=== PATIENT | female | born 1965 | race Caucasian/White ===

== ENCOUNTER 2022-03-04 20:18 | Inpatient (IN) | payer MEDICARE, MEDICAID, SELFPAY ==
--- NOTE | ~2022-03-04 | US_ITS ---
EXAMINATION: ULTRASOUND-GUIDED THORACENTESIS CLINICAL INFORMATION: Pleural effusions COMPARISON: Previous chest CT from yesterday TECHNIQUE: Procedure and risks and benefits including bleeding, infection and pneumothorax were discussed with the patient and informed consent was obtained. The right posterior lateral chest was prepped and draped in the usual sterile fashion. The skin and soft tissues were anesthetized with 1% lidocaine plain. Using ultrasound guidance and a 4 [place] one-stick system, access to the right pleural effusion was obtained. 1.1 L of bloody fluid was removed. Diagnostic specimen was sent as requested by the ordering physician. FINDINGS: There is a large right pleural effusion. This appears complex with low-level internal echoes. US/US thoracentesis IMPRESSION: Ultrasound-guided right thoracentesis.
--- NOTE | ~2022-03-04 | XR_ITS ---
EXAMINATION: XR CHEST CLINICAL INFORMATION: Pleural effusion and shortness of breath. COMPARISON: Chest radiograph 03/05/2022. TECHNIQUE: Frontal view of the chest was obtained. FINDINGS: Stable appearance of the cardiomediastinal silhouette. Low lung volumes with bronchovascular crowding and bibasilar subsegmental atelectasis. Mildly decreased small bilateral pleural effusions. No pneumothorax. No new focal airspace opacities. No acute osseous abnormalities. XR/XR chest 1V IMPRESSION: 1. Mildly decreased small bilateral pleural effusions. 2. Low lung volumes with bronchovascular crowding and bibasilar subsegmental atelectasis.
--- NOTE | ~2022-03-04 | XR_ITS ---
EXAMINATION: XR CHEST CLINICAL INFORMATION: Chest pain. Status post right thoracentesis.. COMPARISON: CT chest 03/05/2022. TECHNIQUE: Frontal view of the chest was obtained. FINDINGS: There is moderate right and small left pleural effusion with underlying atelectasis. The upper lungs are clear. No visible pneumothorax. Heart size and pulmonary vascularity appears normal. No gross bony abnormality. XR/XR chest 1V IMPRESSION: Moderate right and small left pleural effusion. No pneumothorax seen status post right thoracentesis.
--- NOTE | ~2022-03-04 | CT_ITS ---
EXAMINATION: CT ABDOMEN AND PELVIS WITH CONTRAST CLINICAL INFORMATION: Pain COMPARISON: None TECHNIQUE: Multidetector volumetric images were obtained from the superior aspect of the liver through the pubic symphysis following administration 85 mL of Omnipaque 350 intravenous contrast. Sagittal and coronal reformatted images were obtained on the technologist's workstation. Oral contrast: No This CT examination was performed using dose optimization techniques as appropriate, variously including the following: *Automated exposure control *Adjustment of mA and/or kV according to patient size (this includes techniques or standardized protocols for targeted exams where dose is matched to indication/reason for exam; i.e. extremities or head) *Use of iterative reconstruction technique DLP: 661 mGy-cm FINDINGS: LUNG BASES: Large bilateral pleural effusions redemonstrated. LIVER, GALLBLADDER, AND BILIARY TREE: The liver is normal in size, shape, and attenuation. There are a few benign appearing hepatic cysts. Peritoneal implants surrounding the caudate. No focal hepatic lesion or biliary ductal dilatation is present. Cholelithiasis. PANCREAS: Unremarkable. SPLEEN: Unremarkable. ADRENAL GLANDS: Unremarkable. KIDNEYS AND URETERS: The kidneys are normal in size, shape, and attenuation. No hydronephrosis, hydroureter, or calculi seen. No perinephric stranding. BLADDER: Unremarkable. GASTROINTESTINAL TRACT: The small and large bowel are unremarkable. The appendix is unremarkable. ABDOMINAL WALL: No significant hernia is appreciated. LYMPH NODES: Mildly enlarged retroperitoneal lymph nodes present VASCULAR: Aorta atherosclerotic but normal caliber. Patent venous structures. PELVIC VISCERA: Massive complex right ovarian cyst cystic neoplasm. The left ovary may be involved as well. The cystic neoplasm is multiloculated, with the largest single loculation measuring up to 14.8 cm. Extensive peritoneal implants present with omental caking, some of which shows associated calcification. Large massive tumors present within the cul-de-sac. Peritoneal implants present throughout the abdominal cavity with thick coating along the surface of the right hemidiaphragm is well. OSSEOUS STRUCTURES: Unremarkable. 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
--- NOTE | ~2022-03-04 | US_ITS ---
EXAMINATION: US VENOUS ULTRASOUND WITH DOPPLER LOWER EXTREMITY, BILATERAL CLINICAL INFORMATION: Lower extremity edema and pain bilaterally COMPARISON: None TECHNIQUE: Ultrasound of the deep veins is performed from the hip to the calf with compression sonography and color and pulse Doppler assessment. Spectral analysis with color-flow imaging is performed. FINDINGS: RIGHT: There is normal venous compression and respiratory variation and augmented flow. The visualized common femoral vein, superficial femoral vein, profunda femoral vein, popliteal vein, and the trifurcation region shows no evidence of deep venous thrombosis. There is no significant popliteal fossa cyst. LEFT: There is normal venous compression and respiratory variation and augmented flow. The visualized common femoral vein, superficial femoral vein, profunda femoral vein, popliteal vein, and the trifurcation region shows no evidence of deep venous thrombosis. There is no significant popliteal fossa cyst. If the patient's symptoms persist, followup ultrasound in 5 days 7 days might be of value to exclude proximal propagation from a non-visualized calf vein. US/US venous duplex LE BI IMPRESSION: No DVT demonstrated in the bilateral lower extremities.
--- NOTE | ~2022-03-04 | US_ITS ---
EXAMINATION: ULTRASOUND-GUIDED BIOPSY CLINICAL INFORMATION: Ascites and peritoneal masses COMPARISON: CT of the abdomen and pelvis from yesterday TECHNIQUE: Procedure and risks and benefits including bleeding, infection and injury to the bowel or adjacent organs was discussed with the patient and informed consent was obtained. The left periumbilical region was prepped and draped in the usual sterile fashion. The skin and soft tissues were anesthetized with 1% lidocaine plain. Using CT guidance and a coaxial system, access to a partially solid partially cystic peritoneal mass just deep to the abdominal wall was obtained. 4 20-gauge core biopsies were obtained. There was no complication. FINDINGS: There are multiple peritoneal soft tissue masses. Some appear heterogeneous in echotexture and solid. Some appear partially solid and partially cystic. The largest visible solid mass was targeted for ultrasound-guided biopsy. Large-volume complex ascites and cystic mass in the pelvis measuring at least 14 cm is again noted. US/US biopsy subcutaneous skin IMPRESSION: Ultrasound-guided peritoneal biopsy.
--- NOTE | ~2022-03-04 | US_ITS ---
EXAMINATION: ULTRASOUND-GUIDED PARACENTESIS CLINICAL INFORMATION: Ascites COMPARISON: Previous CT of the abdomen and pelvis 03/05/2022 TECHNIQUE: Procedure and risks and benefits including bleeding, infection and low blood pressure were discussed with the patient and informed consent was obtained. The right lower quadrant was prepped and draped in the usual sterile fashion. The skin and soft tissues were anesthetized lidocaine plain. Using ultrasound guidance and a 5 [place] 1 6 system, access to the ascitic fluid was obtained. 5.2 L of bloody cough fluid was removed. Specimen was sent as requested by the ordering physician. FINDINGS: There is a large amount of ascites. This appears slightly complex with low-level internal echoes. There are multiple peritoneal soft tissue solid and cystic mass is seen. There is a large cystic lesion in the pelvis measuring approximately 14 cm in diameter. US/US paracentesis abd w/image IMPRESSION: Ultrasound-guided paracentesis. 5.2 L of bloody fluid removed. Complex ascites with multiple partially solid partially and partially cystic peritoneal masses and large cystic mass in the pelvis measuring at least 14 cm.
--- NOTE | ~2022-03-04 | US_ITS ---
EXAMINATION: US ABDOMEN LIMITED CLINICAL INFORMATION: Evaluate for ascites. COMPARISON: CT abdomen pelvis 03/05/2022, paracentesis 03/05/2022 TECHNIQUE: Real-time imaging of the abdomen. FINDINGS: There are bilateral small to moderate-sized pleural effusions present. A small amount of ascites is present. A large cystic mass is present only partially imaged in the pelvis which is the mass which was seen on the recent 03/05/2022 CT abdomen pelvis. US/US abdomen limited IMPRESSION: Bilateral small to moderate-sized pleural effusions and small amount of ascites. Other findings described above.
[2022-03-04 20:25] VITALS: BP 169/82; PULSE 118; PULSE 88; RESP 26; O2SAT 89; O2SAT 95; BMI 30.1
--- NOTE | 2022-03-04 20:47 | ECG_ITS ---
Test Reason : SOB ABD PAIN Blood Pressure : / mmHG Vent. Rate : 114 BPM Atrial Rate : 114 BPM P-R Int : 094 ms QRS Dur : 080 ms QT Int : 314 ms P-R-T Axes : 036 050 233 degrees QTc Int : 432 ms Sinus tachycardia with short OH Nonspecific ST and T wave abnormality Abnormal ECG No previous ECGs available Referred By: Rudolph Silva Electronically Signed By:Darin Coyne
--- NOTE | 2022-03-04 20:49 | ED.GENADULT ---
HPI - General Adult General Chief complaint: General Medical Stated complaint: abdominal pain Time Seen by Provider: 03/04/22 20:26 Source: patient History of Present Illness HPI narrative: patient with increasing shortness of breath as well as pedal edema and abdominal distension and discomfort. Symptoms started approximately a month ago but have gotten much more severe over the past week. The pedal edema is new. No prior cardiac history. No history of edema. Patient states her main medical issue is long-term chronic Kimberlyn infection. She states symptoms started with what sounds like a viral type syndrome. Some chills but without documented fever. Some cough. No nausea vomiting. Positive decreased appetite. Positive abdominal distension patient has pressured speech and is a bit of a tangential historian. It is hard to get definitive answers for specific review of systems such as dysuria or frequency. She does not remember having chest pain Related Data Allergies Allergy/AdvReac Type Severity Reaction Status Date / Time ibuprofen Allergy Unknown Verified 03/04/22 20:47 Penicillins AdvReac Unknown Verified 03/04/22 20:47 Review of Systems Review of Systems: see HPI. Constitutional: Comments: Chills last month. No documented fevers. Positive increased fatigue and malaise. Cardiovascular: Comments: No chest pain. Positive increased bilateral pedal edema with blistering which is a new symptom Respiratory: Comments: significant dyspnea at rest and worse with any exertion Gastrointestinal: Comments: decreased appetite. Positive abdominal swelling. Positive pain. No nausea or vomiting or diarrhea. Decreased bowel movements. Musculoskeletal: Comments: Bilateral pedal edema Integumentary/Breasts: Comments: blistering bilateral feet Neurologic: Comments: no focal weakness Psychiatric: Comments: patient reports severe anxiety PMFSH Social History Social History Alcohol intake: never Smoked in Last 30 Days: No Use of substances other than those prescribed or required for medical reasons: No Advance Directives: No Advance Directives Information Provided: No Patient : No Physical Exam ED Vital Signs: Vital Signs - 24 hr 03/04/22 20:25 03/04/22 22:21 Pulse Rate 118 H 111 H Respiratory Rate 26 H 28 H Blood Pressure 169/82 H 115/89 Pulse Oximetry 95 94 Oxygen Delivery Method Nasal Cannula Nasal Cannula Oxygen Flow Rate 4 BMI result Body Mass Index 30.1 Const Other: awake and alert. Speaking in 4-5 word sentences. Tachypneic. Hypertensive. Oxygen saturation on nasal cannula 95%. Resp Other: Diminished bilaterally. Bibasilar rales. Cardio Other: tachycardic without murmurs rubs or gallops GI Other: soft. Distended. Diffusely mildly tender without guarding or rebound. Positive fluid wave. Skin Other: Warm pink and dry without rash. Large bullae to the dorsum of bilateral feet. Filled with clear liquid. No purulence drainage. No significant surrounding erythema. Neuro Other: No obvious focal neuro deficit Extrem Other: bilateral 4+ pitting edema. No calf tenderness Course Course Course Narrative: 21:43. X-ray shows large right-sided pleural effusion with small left-sided pleural effusion. Lasix IV ordered. Await creatinine and will order chest x-ray. No evidence for pneumonia at this point in time. 22:39. Lab work so far shows white count of 10.3. Normal hemoglobin and platelets of 521 D-dimer of 971 Creatinine is normal at 0.75.. BNP is 24 Troponin is 8.4. Albumin is 3.9 and total protein is 8.1. Given elevated D-dimer as well as possible mass on chest x-ray, will order CT angiography for better differentiation of mass versus pulmonary embolism 22:51. Will sign out pending results of CT scan. Patient will need hospitalization for further workup and monitoring. She will likely need thoracentesis both therapeutically and diagnostically. She does not need emergent thoracentesis at this time is her saturation is adequate on nasal cannula. 23:45. CT scan shows diffuse pleural effusions and ascites. No obvious masses, no pulmonary embolism. No infiltrates. Will hospitalized at this point Medications Administered Discontinued Medications Generic Name Dose Route Start Last Admin Trade Name Freq PRN Reason Stop Dose Admin Furosemide 20 mg 03/04/22 21:06 03/04/22 21:56 Furosemide 20 Mg/2 Ml Vial IVPUSH 03/04/22 21:07 20 mg ONCE ONE Administration Protocol Iohexol 65 ml 03/04/22 23:17 03/04/22 23:18 Iohexol 350 Mg/Ml 100 Ml Infus..Btl IV 03/04/22 23:18 65 ml ONCE ONE Administration Medical Decision Making Medical Decision Making [facility] Narrative: patient clinically ill with a large differential diagnosis. Congestive heart failure, new onset Renal failure Liver failure Pericardial effusion Postinfectious cardiomyopathy No obvious infectious source at the moment Anasarca Nephrotic syndrome Lab Data Result Diagrams: 03/04/22 21:31 03/04/22 21:31 Labs: Lab Results 03/04/22 03/04/22 03/04/22 Range/Units 21:31 21:31 21:31 WBC 10.3 (4.8-10.8) X10*3/uL RBC 6.22 H (4.20-5.50) X10*6/uL Hgb 14.7 (12.0-16.0) g/dl Hct 46.9 (37.0-47.0) % MCV 75.4 L (80.0-98.0) fL MCH 23.6 L (27.0-33.0) pg MCHC 31.3 (31.0-35.0) g/dl RDW 16.0 (11.0-16.0) % Plt Count 521 H (160-400) X10*3/uL MPV 9.4 (9.4-12.3) fL Immature Gran % (Auto) 0.4 (0.0-0.4) % Neut % (Auto) 88.4 H (45-73) % Lymph % (Auto) 4.1 L (20-40) % [place] % (Auto) 6.6 (2-11) % Eos % (Auto) 0.2 (0-4) % Baso % (Auto) 0.3 (0-2) % Lymph # (Auto) 0.4 L (1.2-4.9) X10*3/uL [place] # (Auto) 0.7 (0.1-1.2) X10*3/uL Eos # (Auto) 0.0 (0.0-0.4) X10*3/uL Baso # (Auto) 0.0 (0.0-0.2) X10*3/uL Abs Immat Gran (auto) 0.04 H (0.00-0.03) X10*3/uL Absolute Neuts (auto) 9.1 H (2.0-8.3) x10*3/uL Absolute Nucleated RBC 0.000 (0.0-0.012) X10*3/uL Nucleated RBC % (auto) 0.0 (0.0-0.2) /100WBC PT (10.0-13.1) SEC INR (0.9-1.1) D-Dimer High Sensitivty NG/ML Sodium 139 (135-145) mmol/L Potassium 4.8 (3.3-5.1) mmol/L Chloride 103 (96-108) mmol/L Carbon Dioxide 21 L (22-29) mmol/L Anion Gap 20 (12-20) BUN 22 H (9-16) mg/dL Creatinine 0.75 (0.5-1.4) mg/dL Estim Creat Clear Calc 81.3 Estimated GFR > 60 Random Glucose 116 H (60-115) mg/dL Lactic Acid 1.9 (0.5-2.0) mmol/L Calcium 10.0 (8.4-10.2) mg/dL Total Bilirubin 0.2 (0.0-1.0) mg/dL AST 51 H (5-31) U/L ALT 26 (0-31) U/L Alkaline Phosphatase 83 (39-117) U/L Troponin I High Sens (<3.5-17.0) ng/L B-Natriuretic Peptide (<100) pg/mL Total Protein 8.1 H (6.5-8.0) g/dL Albumin 3.9 (3.5-5.0) g/dL Urine Color Urine Appearance Urine pH (5.0-9.0) Ur Specific [place] (1.005-1.025) Urine Protein (Neg-Trace) mg/dL Urine Glucose (UA) (Negative) mg/dL Urine Ketones (Negative) mg/dL Urine Blood (Negative) Urine Nitrite (Negative) Ur Leukocyte Esterase (Negative) Urine RBC (0-2) /HPF Urine WBC (0-5) /HPF Ur Squamous Epith Cells (0-2) /HPF Urine Bacteria (None Seen) Hyaline Casts (0-2) /LPF Granular Casts 03/04/22 03/04/22 03/04/22 Range/Units 21:31 21:31 21:31 WBC (4.8-10.8) X10*3/uL RBC (4.20-5.50) X10*6/uL Hgb (12.0-16.0) g/dl Hct (37.0-47.0) % MCV (80.0-98.0) fL MCH (27.0-33.0) pg MCHC (31.0-35.0) g/dl RDW (11.0-16.0) % Plt Count (160-400) X10*3/uL MPV (9.4-12.3) fL Immature Gran % (Auto) (0.0-0.4) % Neut % (Auto) (45-73) % Lymph % (Auto) (20-40) % [place] % (Auto) (2-11) % Eos % (Auto) (0-4) % Baso % (Auto) (0-2) % Lymph # (Auto) (1.2-4.9) X10*3/uL [place] # (Auto) (0.1-1.2) X10*3/uL Eos # (Auto) (0.0-0.4) X10*3/uL Baso # (Auto) (0.0-0.2) X10*3/uL Abs Immat Gran (auto) (0.00-0.03) X10*3/uL Absolute Neuts (auto) (2.0-8.3) x10*3/uL Absolute Nucleated RBC (0.0-0.012) X10*3/uL Nucleated RBC % (auto) (0.0-0.2) /100WBC PT 13.2 H (10.0-13.1) SEC INR 1.1 (0.9-1.1) D-Dimer High Sensitivty 971 NG/ML Sodium (135-145) mmol/L Potassium (3.3-5.1) mmol/L Chloride (96-108) mmol/L Carbon Dioxide (22-29) mmol/L Anion Gap (12-20) BUN (9-16) mg/dL Creatinine (0.5-1.4) mg/dL Estim Creat Clear Calc Estimated GFR Random Glucose (60-115) mg/dL Lactic Acid (0.5-2.0) mmol/L Calcium (8.4-10.2) mg/dL Total Bilirubin (0.0-1.0) mg/dL AST (5-31) U/L ALT (0-31) U/L Alkaline Phosphatase (39-117) U/L Troponin I High Sens 8.4 (<3.5-17.0) ng/L B-Natriuretic Peptide 24 (<100) pg/mL Total Protein (6.5-8.0) g/dL Albumin (3.5-5.0) g/dL Urine Color Urine Appearance Urine pH (5.0-9.0) Ur Specific [place] (1.005-1.025) Urine Protein (Neg-Trace) mg/dL Urine Glucose (UA) (Negative) mg/dL Urine Ketones (Negative) mg/dL Urine Blood (Negative) Urine Nitrite (Negative) Ur Leukocyte Esterase (Negative) Urine RBC (0-2) /HPF Urine WBC (0-5) /HPF Ur Squamous Epith Cells (0-2) /HPF Urine Bacteria (None Seen) Hyaline Casts (0-2) /LPF Granular Casts 03/04/22 Range/Units 21:48 WBC (4.8-10.8) X10*3/uL RBC (4.20-5.50) X10*6/uL Hgb (12.0-16.0) g/dl Hct (37.0-47.0) % MCV (80.0-98.0) fL MCH (27.0-33.0) pg MCHC (31.0-35.0) g/dl RDW (11.0-16.0) % Plt Count (160-400) X10*3/uL MPV (9.4-12.3) fL Immature Gran % (Auto) (0.0-0.4) % Neut % (Auto) (45-73) % Lymph % (Auto) (20-40) % [place] % (Auto) (2-11) % Eos % (Auto) (0-4) % Baso % (Auto) (0-2) % Lymph # (Auto) (1.2-4.9) X10*3/uL [place] # (Auto) (0.1-1.2) X10*3/uL Eos # (Auto) (0.0-0.4) X10*3/uL Baso # (Auto) (0.0-0.2) X10*3/uL Abs Immat Gran (auto) (0.00-0.03) X10*3/uL Absolute Neuts (auto) (2.0-8.3) x10*3/uL Absolute Nucleated RBC (0.0-0.012) X10*3/uL Nucleated RBC % (auto) (0.0-0.2) /100WBC PT (10.0-13.1) SEC INR (0.9-1.1) D-Dimer High Sensitivty NG/ML Sodium (135-145) mmol/L Potassium (3.3-5.1) mmol/L Chloride (96-108) mmol/L Carbon Dioxide (22-29) mmol/L Anion Gap (12-20) BUN (9-16) mg/dL Creatinine (0.5-1.4) mg/dL Estim Creat Clear Calc Estimated GFR Random Glucose (60-115) mg/dL Lactic Acid (0.5-2.0) mmol/L Calcium (8.4-10.2) mg/dL Total Bilirubin (0.0-1.0) mg/dL AST (5-31) U/L ALT (0-31) U/L Alkaline Phosphatase (39-117) U/L Troponin I High Sens (<3.5-17.0) ng/L B-Natriuretic Peptide (<100) pg/mL Total Protein (6.5-8.0) g/dL Albumin (3.5-5.0) g/dL Urine Color Dark Yellow Urine Appearance Cloudy Urine pH 5.0 (5.0-9.0) Ur Specific [place] >= 1.030 H (1.005-1.025) Urine Protein 30 (1+) H (Neg-Trace) mg/dL Urine Glucose (UA) Negative (Negative) mg/dL Urine Ketones Trace (Negative) mg/dL Urine Blood Trace H (Negative) Urine Nitrite Negative (Negative) Ur Leukocyte Esterase Negative (Negative) Urine RBC 3-5 H (0-2) /HPF Urine WBC 0-5 (0-5) /HPF Ur Squamous Epith Cells 6-10 (0-2) /HPF Urine Bacteria None Seen (None Seen) Hyaline Casts >20 (0-2) /LPF Granular Casts Present Critical Care Time Critical Care Time Critical Care Time: Yes Total Critical Care Time: 100 Attestation: Critical care time outside of separately billable procedures. Critical care time secondary to abnormal vital signs in the setting of respiratory distress with possible respiratory failure and multiorgan involvement Discharge Plan Discharge Clinical Impression: Anasarca Patient Disposition: Admitted As Inpatient
[2022-03-04 21:37] LABS: MANUAL DIFF FLAG NO
[2022-03-04 21:39] LABS: Basophils Percent Auto 0.3 % (0-2); Eosinophils Percent Auto 0.2 % (0-4); Hematocrit 46.9 % (37.0-47.0); Hemoglobin 14.7 g/dl (12.0-16.0); Imm Gran Abs Auto 0.04 X10*3/uL (0.00-0.03); Imm Gran Pct Auto 0.4 % (0.0-0.4); Lymphocytes Absolute Auto 0.4 X10*3/uL (1.2-4.9); Lymphocytes Percent Auto 4.1 % (20-40); Mean Corpuscular HGB Conc 31.3 g/dl (31.0-35.0); Mean Corpuscular Hemoglobin 23.6 pg (27.0-33.0); Mean Corpuscular Volume 75.4 fL (80.0-98.0); Mean Platelet Volume 9.4 fL (9.4-12.3); Monocytes Absolute Auto 0.7 X10*3/uL (0.1-1.2); Monocytes Percent Auto 6.6 % (2-11); Neutrophils Absolute Auto 9.1 x10*3/uL (2.0-8.3); Neutrophils Percent Auto 88.4 % (45-73); Platelet Count 521 X10*3/uL (160-400); Red Blood Count 6.22 X10*6/uL (4.20-5.50); White Blood Count 10.3 X10*3/uL (4.8-10.8)
[2022-03-04 21:44] LABS: INTERNATIONAL NORM RATIO 1.1 (0.9-1.1); Prothrombin Time 13.2 SEC (10.0-13.1)
[2022-03-04 21:46] LABS: D Dimer High Sensitivity 971 NG/ML
[2022-03-04 21:54] LABS: Appearance Urine Cloudy; Color Urine Dark Yellow; Glucose Urine UA Negative (Negative); Leukocyte Esterase Urine Negative (Negative); Nitrite Urine Negative (Negative); Specific Gravity - Urine >= 1.030 (1.005-1.025); UMIC TRIGGER UACC YES; Urine Blood Trace (Negative); Urine Ketones Trace mg/dL (Negative); Urine Protein 30 (1+) mg/dL (Neg-Trace)
[2022-03-04 21:56] LABS: Lactic Acid 1.9 mmol/L (0.5-2.0)
[2022-03-04] MEDS: Furosemide 20 MG/2 ML VIAL IVPUSH (21:56)
[2022-03-04 22:00] LABS: Alanine Aminotransferase 26 U/L (0-31); Albumin Level 3.9 g/dL (3.5-5.0); Alkaline Phosphatase 83 U/L (39-117); Anion Gap 20 (12-20); Aspartate Amino Transferase 51 U/L (5-31); Bilirubin Total 0.2 mg/dL (0.0-1.0); Blood Urea Nitrogen 22 mg/dL (9-16); Carbon Dioxide 21 mmol/L (22-29); Chloride 103 mmol/L (96-108); Creatinine Clr Calc Pharmacy 81.3; Estimated Glomerular Filt Rate > 60; Glucose Random 116 mg/dL (60-115); Potassium 4.8 mmol/L (3.3-5.1); Sodium 139 mmol/L (135-145); Total Protein 8.1 g/dL (6.5-8.0)
[2022-03-04 22:03] LABS: Bacteria Urine None Seen (None Seen); Granular Casts Urine Present; Hyaline Casts Urine >20 /LPF (0-2); WBC Urine 0-5 /HPF (0-5)
[2022-03-04 22:06] LABS: B Type Natriuretic Peptide 24 pg/mL (<100)
[2022-03-04 22:07] LABS: Troponin-I High Sensitivity 8.4 ng/L (<3.5-17.0)
[2022-03-04 22:21] VITALS: BP 115/89; PULSE 111; RESP 28; O2SAT 94
--- NOTE | 2022-03-04 22:54 | PC.NURSE ---
Pt resting on stretcher, reports pain in abdomen, unable to determine how severe. pt has tangential thoughts and is unable to fully develop a cohesive explanation for things. Pt has patent 20g IV in LAC. Pt is able to get up and use commode
[2022-03-04 23:45] VITALS: O2SAT 96
[2022-03-05] VITALS: BP 127/66; PULSE 106; RESP 33; TEMP 36.8; O2SAT 95
[2022-03-05 01:28] LABS: Ferritin 1249 ng/mL (10-250)
--- NOTE | 2022-03-05 02:54 | PC.NURSE ---
This technical writer and editor assumed care at 0250.
[2022-03-05 04:27] VITALS: BP 138/96; PULSE 99; RESP 22; TEMP 36.4; O2SAT 94
--- NOTE | 2022-03-05 06:03 | PM.IMHP ---
History of Present Illness Date of Service: 03/05/22 Chief Complaint: Ascites 56-year-old female who reports no previous significant medical history except for anxiety with possible developmental delay, presents to the hospital with complaints of abdominal distension. Patient is a very poor historian, see has flight of ideas, unable to keep a straight story, but reports that since January 28 she noticed significant abdominal bloating, difficulty breathing. She reports that she has also noticed significant weight loss and feels that she has lost muscle mass. She reports difficulty sleeping, unable to get comfortable in any position. Otherwise difficult to have patient focus and tell a straight story. She reports no chest pain, no abdominal pain, no diarrhea or constipation, no urinary symptoms . Patient also complaining of lower extremity edema for the past 1 week. She reports that none of this has been attributed to her stress and anxiety. Labs are significant for respiratory rate of 26, heart rate of 118, blood pressure 169/82, Labs on arrival significant for WBC count of 10.3, hemoglobin of 14.7, hematocrit 46.9, PT of 13.2, creatinine of 0.75, calcium of 10.0, ferritin of 1249, albumin of 3.9, UA negative for acute infection, Troponin negative Chest CT negative for PE, no aortic aneurysm or dissection, chest CT shows large bilateral pleural effusion with accompanying atelectasis, abdominal pelvic CT shows large complex cystic and solid neoplasm involving the right ovary possibly left ovary as well with extensive peritoneal carcinomatosis Patient given Lasix with a good affect and will be admitted for further management Review of Systems Review of Systems: Yes all other systems are reviewed and are negative [facility] Medical History Anxiety Family History Father History of coronary artery disease Surgical History No pertinent past surgical history Social History Alcohol intake: never Smoked in Last 30 Days: No Use of substances other than those prescribed or required for medical reasons: No Advance Directives: No Advance Directives Information Provided: No Patient : No Meds Allergies Allergy/AdvReac Type Severity Reaction Status Date / Time ibuprofen Allergy Unknown Verified 03/04/22 20:47 Penicillins AdvReac Unknown Verified 03/04/22 20:47 Physical Exam Vital Signs and Narrative: Vital Signs: Last Vital Signs Temp 97.5 F 03/05/22 04:27 Pulse 99 03/05/22 04:27 Resp 22 H 03/05/22 04:27 BP 138/96 H 03/05/22 04:27 Pulse Ox 94 03/05/22 04:27 O2 Del Method 03/05/22 04:27 O2 Flow Rate 4 03/05/22 04:27 Oxygen Flow Rate 3 03/04/22 20:25 BMI result Body Mass Index 30.1 Const: General: cooperative and no acute distress Orientation/consciousness: patient oriented x3 Eyes: General: appearance normal, both eyes and all related structures Resp: Other: Crackles bilaterally, has significant dyspnea on minimal effort Effort & Inspection: normal respiratory effort Cardio: Rate: regular rate Rhythm: regular rhythm GI: Other: Abdomen is significantly distended, hard nontender Skin: General skin exam: no rashes or lesions noted Neuro: General: patient oriented x3 Cognition (Neuro): normal cognition Extrem: Other: 3+ pitting edema bilaterally General: Yes normal to inspection Results Labs CBC and Chem 7: 03/04/22 21:31 03/04/22 21:31 Labs: Laboratory Results - last 24 hr 03/04/22 03/04/22 03/04/22 21:31 21:31 21:31 MCV 75.4 L MCH 23.6 L MCHC 31.3 RDW 16.0 Plt Count 521 H MPV 9.4 Immature Gran % (Auto) 0.4 Neut % (Auto) 88.4 H Lymph % (Auto) 4.1 L [place] % (Auto) 6.6 Eos % (Auto) 0.2 Baso % (Auto) 0.3 Lymph # (Auto) 0.4 L [place] # (Auto) 0.7 Eos # (Auto) 0.0 Baso # (Auto) 0.0 Abs Immat Gran (auto) 0.04 H Absolute Neuts (auto) 9.1 H Absolute Nucleated RBC 0.000 Nucleated RBC % (auto) 0.0 PT INR D-Dimer High Sensitivty Anion Gap 20 Estim Creat Clear Calc 81.3 Estimated GFR > 60 Random Glucose 116 H Lactic Acid 1.9 Calcium 10.0 Ferritin 1249 H Total Bilirubin 0.2 AST 51 H ALT 26 Alkaline Phosphatase 83 Troponin I High Sens B-Natriuretic Peptide Total Protein 8.1 H Albumin 3.9 Urine Color Urine Appearance Urine pH Ur Specific [place] Urine Protein Urine Glucose (UA) Urine Ketones Urine Blood Urine Nitrite Ur Leukocyte Esterase Urine RBC Urine WBC Ur Squamous Epith Cells Urine Bacteria Hyaline Casts Granular Casts 03/04/22 03/04/22 03/04/22 21:31 21:31 21:31 MCV MCH MCHC RDW Plt Count MPV Immature Gran % (Auto) Neut % (Auto) Lymph % (Auto) [place] % (Auto) Eos % (Auto) Baso % (Auto) Lymph # (Auto) [place] # (Auto) Eos # (Auto) Baso # (Auto) Abs Immat Gran (auto) Absolute Neuts (auto) Absolute Nucleated RBC Nucleated RBC % (auto) PT 13.2 H INR 1.1 D-Dimer High Sensitivty 971 Anion Gap Estim Creat Clear Calc Estimated GFR Random Glucose Lactic Acid Calcium Ferritin Total Bilirubin AST ALT Alkaline Phosphatase Troponin I High Sens 8.4 B-Natriuretic Peptide 24 Total Protein Albumin Urine Color Urine Appearance Urine pH Ur Specific [place] Urine Protein Urine Glucose (UA) Urine Ketones Urine Blood Urine Nitrite Ur Leukocyte Esterase Urine RBC Urine WBC Ur Squamous Epith Cells Urine Bacteria Hyaline Casts Granular Casts 03/04/22 21:48 MCV MCH MCHC RDW Plt Count MPV Immature Gran % (Auto) Neut % (Auto) Lymph % (Auto) [place] % (Auto) Eos % (Auto) Baso % (Auto) Lymph # (Auto) [place] # (Auto) Eos # (Auto) Baso # (Auto) Abs Immat Gran (auto) Absolute Neuts (auto) Absolute Nucleated RBC Nucleated RBC % (auto) PT INR D-Dimer High Sensitivty Anion Gap Estim Creat Clear Calc Estimated GFR Random Glucose Lactic Acid Calcium Ferritin Total Bilirubin AST ALT Alkaline Phosphatase Troponin I High Sens B-Natriuretic Peptide Total Protein Albumin Urine Color Dark Yellow Urine Appearance Cloudy Urine pH 5.0 Ur Specific [place] >= 1.030 H Urine Protein 30 (1+) H Urine Glucose (UA) Negative Urine Ketones Trace Urine Blood Trace H Urine Nitrite Negative Ur Leukocyte Esterase Negative Urine RBC 3-5 H Urine WBC 0-5 Ur Squamous Epith Cells 6-10 Urine Bacteria None Seen Hyaline Casts >20 Granular Casts Present Imaging Radiologist's Impressions: Impressions Chest X-Ray 03/04/22 21:01 IMPRESSION: [id number] right and [id number] left pleural effusions. Associated consolidations are suspected likely representing atelectasis; superimposed infection cannot be excluded. Underlying mass lesion cannot be completely excluded. Chest CTA 03/04/22 23:15 IMPRESSION: * No pulmonary embolism. * No aortic aneurysm or dissection. * Large bilateral pleural effusions with accompanying atelectasis. * Large volume ascites. 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 Assessment and Plan (1) Ascites, malignant: Status: Acute (2) Pleural effusion: Status: Acute (3) Ovarian mass: Status: Acute (4) Anasarca: Status: Acute Plan 56-year-old female with past medical history of anxiety disorder presents to the hospital with complaints of ascites found to have a very in mass on imaging # ascites of malignancy - will treat with Lasix - IR consult for paracentesis - Hematology-Oncology consult - monitor respiratory status # bilateral pleural effusion - likely malignant due to above - pulmonology consult for possible thoracocentesis given the significant large size of the pleural effusions - continue oxygen as required # ovarian mass - patient reports weight loss, no family history of cancer - CT shows complex large neoplasm above in the right and possibly left ovary - Hematology-Oncology consulted - Ob Gyne consult for further guidance DVT prophylaxis: Heparin Given patient's ascites of malignancy requiring paracentesis and further workup patient will require minimum 2 night inpatient hospital stay for further management and monitoring Time Spent With Patient Time: Total time managing care of this patient today ____ minutes. Quality Stroke Does the patient have a stroke diagnosis?: No VTE Prior VTE?: No VTE Risk Level:: Medical - moderate - high VTE Device Contraindication: Treatment Not Indicated VTE Drug Contraindication: N/A - Med Ordered
[2022-03-05 07:19] VITALS: BP 124/76; PULSE 94; RESP 31; TEMP 36.7; O2SAT 9
[2022-03-05] MEDS: Furosemide 40 MG/4 ML VIAL IVPUSH ×2 (08:33→19:17)
[2022-03-05] MEDS: Heparin Sodium,Porcine 5,000 UNIT/ML VIAL 5000 UNIT SUBCUT ×2 (08:33→19:17)
[2022-03-05] MEDS: 0.9 % Sodium Chloride Flush 3 ML SYRINGE IVFLUSH ×2 (08:34→22:59)
--- NOTE | 2022-03-05 08:39 | PC.NURSE ---
pt. alert and oriented. overwhelmed with being in the hospital. She likes to have everything explained slowly. reports no pain but pressure on her abdomen from fullness. gave her lasix IV and heparin sq.
--- NOTE | 2022-03-05 09:12 | P.CONPL_ITS ---
History of Present Illness History of Present Illness Consult date: 03/05/22 Reason for consult: pleural effusion and other (Ascites) Chief complaint: abdominal pain Narrative: I have seen this 56 years old very pleasant female, this morning, for pulmonary consultation. she presents with general weakness, shortness of breath, swelling of the abdomen, and edema of the legs for the past 3-4 weeks. in addition to increasing girth of her abdomen and some swelling of the legs, she has also noticed some weight loss. she has had no fever, chills are any chest pain. she does have some abdominal discomfort due to increasing amount of swelling. PAST MEDICAL HISTORY: suffers from chronic anxiety and posttraumatic stress disorder. denies any chronic pulmonary disease. She is single, [place] , 5 years post menopause. she is nonsmoker, non drinker , . Review of Systems Review of Systems: Yes all other systems are reviewed and are negative Eyes: Eyes: Reports no additional eye complaints ENT: Reports system reviewed and no additional complaints, except as documented Cardiovascular: Cardiovascular: Reports no additional cardiovascular complaints and Reports dyspnea Respiratory: Respiratory: Denies cough, Denies pain on inspiration, Reports dyspnea and Denies wheezing Gastrointestinal: Gastrointestinal: Reports bloating Genitourinary: Genitourinary: Reports no additional female genitourinary complaints Musculoskeletal: Musculoskeletal: Reports no additional musculoskeletal complaints Integumentary/Breasts: Skin/Breast: Reports system reviewed and no additional complaints, except as docu Neurologic: Reports system reviewed and no additional complaints, except as documented Psychiatric: Psychiatric: Reports anxiety Endocrine: Endocrine: Reports no additional endocrine complaints Hematologic/Lymphatic: Hematologic/Lymphatic: Reports no additional hematologic/lymphatic complaints Allergic/Immunologic: Allergic/Immunologic: Denies wheezing PMFSH Past Medical History Medical History (Updated 03/05/22 @ 09:24 by Adams Stanton MD) Abdominal ascites Anxiety Family History Family History Father History of coronary artery disease Surgical History Surgical History No pertinent past surgical history Social History Social History Alcohol intake: never Smoked in Last 30 Days: No Use of substances other than those prescribed or required for medical reasons: No Advance Directives: No Advance Directives Information Provided: No Patient : No Meds Allergies Allergy/AdvReac Type Severity Reaction Status Date / Time ibuprofen Allergy Unknown Verified 03/04/22 20:47 Penicillins AdvReac Unknown Verified 03/04/22 20:47 Active Medications: Current Medications Acetaminophen (Acetaminophen 325 Mg Tablet) 650 mg PO Q6H PRN PRN Reason: Pain, Mild (Pain Scale 1-3) Docusate Sodium (Docusate Sodium 100 Mg Capsule) 100 mg PO DAILY PRN PRN Reason: Constipation Furosemide (Furosemide 40 Mg/4 Ml Vial) 40 mg IVPUSH BID@0900,1800 [facility]; Protocol Last Admin: 03/05/22 08:33 Dose: 40 mg Heparin Sodium (Porcine) (Heparin Sodium,Porcine 5,000 Unit/Ml Vial) 5,000 unit SUBCUT Q12H [facility] Last Admin: 03/05/22 08:33 Dose: 5,000 unit Morphine Sulfate (Morphine Sulfate 4 Mg/Ml Cartridge) 4 mg IVPUSH Q4H PRN; Protocol PRN Reason: Pain, Severe (Pain Scale 7-10) Ondansetron HCl (Ondansetron Hcl 4 Mg/2 Ml Vial) 4 mg IVPUSH Q8H PRN PRN Reason: Nausea and Vomiting Sodium Chloride (0.9 % Sodium Chloride Flush 3 Ml Syringe) 3 ml IVFLUSH QSHIFT [facility] Last Admin: 03/05/22 08:34 Dose: 3 ml Home Medications Medication Instructions Recorded Confirmed Last Taken Type cholecalciferol (vitamin D3) 25 25 mcg PO MOWEFR@0900 03/05/22 03/05/22 03/04/22 History mcg (1,000 unit) tablet (Vitamin D3) fluocinonide 0.05 % topical cream 1 appl topical BID eczema 03/05/22 03/05/22 Unknown History Physical Exam Vital Signs: Vital Signs: Last Vital Signs Temp 98.0 F 03/05/22 07:19 Pulse 94 03/05/22 07:19 Resp 31 H 03/05/22 07:19 BP 124/76 03/05/22 07:19 Pulse Ox 9 L 03/05/22 07:19 O2 Del Method 03/05/22 07:19 O2 Flow Rate 4 03/05/22 07:19 Oxygen Flow Rate 3 03/04/22 20:25 BMI result Body Mass Index 30.1 Const: General: comfortable ( except for mild dyspnea while talking.), no acute distress, alert and awake Orientation/consciousness: patient oriented x3 HEENT: Head: Yes normal to inspection General nose exam: No nasal polyps present and No nasal discharge present Face and sinus: Yes sinuses nontender Mouth: oropharynx normal Throat: Yes posterior oropharynx normal Eyes: General: appearance normal, both eyes and all related structures Neck: Neck: Yes normal visual inspection, Yes no lymphadenopathy, Yes trachea midline and Yes no JVD Thyroid: Thyroid normal Chest: Chest palpation & inspection: normal inspection of the chest, normal palpation of entire chest wall and no tenderness Resp: Other: Percussion note is dull over the both lower half of the chest, more so on the right side. Breath sounds are absent over the lower half on the right side and lower 1/3 on the left side. in the upper parts of the chest the breath sounds are normal, no wheezes or rhonchi. Cardio: Palpation: normal PMI Rate: regular rate Rhythm: regular rhythm Heart sounds: no gallops and no murmurs Peripheral pulses: Peripheral pulses 2+ throughout GI: Palpation (GI): not soft, nontender and Ascites present ( the abdomen is distended and there is evidence of moderate sized ascites) Auscultation: normal bowel sounds Back/Spine/Pelvis: Thoracic/Lumbar Spine: thoracic and lumbar spine normal to inspection Skin: General skin exam: no rashes or lesions noted Neuro: General: patient oriented x3 and no focal motor deficits Cranial nerves: Yes CN's II-XII intact bilaterally Extrem: General: Yes normal to inspection, Yes no calf tenderness and Yes edema (2 + pitting edema of the legs and feet.) Psych: Speech and movement: Normal speech and movement present Affect: Anxious affect present Results Laboratory Findings CBC and BMP: 03/04/22 21:31 12 21:31 ABG, PT/INR, D-dimer: PT/INR, D-dimer PT 13.2 SEC (10.0-13.1) H 03/04/22 21:31 INR 1.1 (0.9-1.1) 03/04/22 21:31 Abnormal lab findings: Abnormal Labs 03/04/22 03/04/22 03/04/22 21:31 21:31 21:31 RBC 6.22 H MCV 75.4 L MCH 23.6 L Plt Count 521 H Neut % (Auto) 88.4 H Lymph % (Auto) 4.1 L Lymph # (Auto) 0.4 L Abs Immat Gran (auto) 0.04 H Absolute Neuts (auto) 9.1 H PT 13.2 H Carbon Dioxide 21 L BUN 22 H Random Glucose 116 H Ferritin 1249 H AST 51 H Total Protein 8.1 H Ur Specific [place] Urine Protein Urine Blood Urine RBC 03/04/22 21:48 RBC MCV MCH Plt Count Neut % (Auto) Lymph % (Auto) Lymph # (Auto) Abs Immat Gran (auto) Absolute Neuts (auto) PT Carbon Dioxide BUN Random Glucose Ferritin AST Total Protein Ur Specific [place] >= 1.030 H Urine Protein 30 (1+) H Urine Blood Trace H Urine RBC 3-5 H Diagnostic Findings Chest x-ray: report reviewed and image reviewed CT scan - chest: report reviewed and image reviewed Assessment and Plan (1) Pleural effusion: Status: Acute (2) Ovarian mass: Status: Acute (3) Abdominal ascites: Status: Acute Plan This 56 years old, anxious but pleasant lady, presents with the symptoms and signs of Mieg,s Syndrome ( ovarian tumor, ascites, and pleural effusions.) the cause of pleural effusions is presence of ovarian mass and ascites, and not related to underlying pulmonary disease. Recc . Thoracenteses right chest,( diagnostic and therapeutic ) , the test on the fluid should includes cytology. Surgical/gynecological consultation. CA-125 O2 supplementation for her comfort and to keep O2 sat above 90 % Thank you for asking me to see this patient . Time Spent With Patient Time: Total time managing care of this patient today ____ minutes. Procedures Date of Service Date of Service: 03/05/22
--- NOTE | 2022-03-05 09:28 | PHA.MEDREC ---
Pharmacy Consult ? Medication Reconciliation Pharmacy has completed the medication reconciliation.
--- NOTE | 2022-03-05 09:30 | PM.EVENT ---
Event Note Date of Service: 03/05/22 Event Note: 56-year-old female with past medical history of anxiety disorder presents to the hospital with complaints of ascites found to have a very in mass on imaging Ascites of malignancy Lasix Paracentesis ordered Hem/onc consult Bilateral pleural effusion likely malignant due to above pulmonology consult for possible thoracocentesis given the significant large size of the pleural effusions, unlikley related to resp illness rather ovarian tumor causing fluid buildup continue oxygen as required Ovarian mass patient reports weight loss, no family history of cancer CT shows complex large neoplasm above in the right and possibly left ovary Hematology-Oncology consulted Ob Gyne consult for further guidance Mental health Severe PTSD worried about possibe dx of cancer Psych consult for emotionally support DVT prophylaxis: Heparin Attending Dr. Cunningham Time Spent With Patient Time: Total time managing care of this patient today ____ minutes.
[2022-03-05 09:58] LABS: MANUAL DIFF FLAG NO
[2022-03-05 10:02] LABS: Basophils Percent Auto 0.3 % (0-2); Eosinophils Percent Auto 0.2 % (0-4); Hematocrit 47.8 % (37.0-47.0); Hemoglobin 14.5 g/dl (12.0-16.0); Imm Gran Abs Auto 0.03 X10*3/uL (0.00-0.03); Imm Gran Pct Auto 0.3 % (0.0-0.4); Lymphocytes Absolute Auto 0.7 X10*3/uL (1.2-4.9); Lymphocytes Percent Auto 7.5 % (20-40); Mean Corpuscular HGB Conc 30.3 g/dl (31.0-35.0); Mean Corpuscular Hemoglobin 23.2 pg (27.0-33.0); Mean Corpuscular Volume 76.4 fL (80.0-98.0); Mean Platelet Volume 9.8 fL (9.4-12.3); Monocytes Absolute Auto 0.7 X10*3/uL (0.1-1.2); Monocytes Percent Auto 7.1 % (2-11); Neutrophils Absolute Auto 7.9 x10*3/uL (2.0-8.3); Neutrophils Percent Auto 84.6 % (45-73); Platelet Count 600 X10*3/uL (160-400); Red Blood Count 6.26 X10*6/uL (4.20-5.50); Red Cell Distribution Width 16.3 % (11.0-16.0); White Blood Count 9.3 X10*3/uL (4.8-10.8)
[2022-03-05 10:43] LABS: Anion Gap 19 (12-20); Blood Urea Nitrogen 20 mg/dL (9-16); Calcium 10.8 mg/dL (8.4-10.2); Carbon Dioxide 27 mmol/L (22-29); Chloride 99 mmol/L (96-108); Creatinine Clr Calc Pharmacy 67.7; Estimated Glomerular Filt Rate > 60; Glucose Random 117 mg/dL (60-115); Sodium 140 mmol/L (135-145)
[2022-03-05 10:59] LABS: Lactate Dehydrogenase 577 U/L (122-220)
--- NOTE | 2022-03-05 12:17 | PM.HEMONCCN ---
Subjective - Subjective Chief complaint: Swelling of abdomen and legs Patient: new to practice Consult date: 03/05/22 Primary Care Provider: Ramon Seth MD HPI - Consult Narrative Reason for consult: Probable malignant ascites/ovarian tumor Narrative: Aby Goss is a 56 year old woman who suffers from chronic anxiety, PTSD presenting with abdominal pain, swelling and bilateral leg edema. Patient is a poor historian and unable to give it time frame but it seems like this has been progressing for at least 2 years. She was last seen by her PCP in 2019, at that time she was told that she had gained weight, her abdomen was slightly distended. At that time it was felt to be related to menopause. She did not go for any doctor's appointments throughout the pandemic. She has never had a screening mammogram or colonoscopy. Unable to obtain much of a history in terms of other symptoms. Workup in the emergency department revealed large bilateral pleural effusions, right much larger than left, abdominal CT showing a large complex cystic and solid neoplasm involving both ovaries with extensive peritoneal carcinomatosis. Review of Systems - Neurologic Reports no additional neurologic complaints Oncology Screenings - ECOG Performance Status ECOG Performance Status: 2 [facility] Medical History: Medical History (Last Updated 03/05/22 @ 09:24 by Adams Stanton MD) Abdominal ascites Anxiety Family History: Family History (Last Reviewed 03/05/22 @ 06:12 by Amparo Connors MD) Father History of coronary artery disease Surgical History: Surgical History (Last Reviewed 03/05/22 @ 06:12 by Amparo Connors MD) No pertinent past surgical history Social History: Social History (Last Reviewed 03/05/22 @ 06:12 by Amparo Connors MD) Tobacco History: Smoked in Last 30 Days: No Substance Use History: Use of substances other than those prescribed or required for medical reasons: No Advance Directives: Advance Directives: No Advance Directives Information Provided: No Nutrition Assessment: Patient : No Home Medications and Allergies Current Medications: Current Medications Acetaminophen (Acetaminophen 325 Mg Tablet) 650 mg PO Q6H PRN PRN Reason: Pain, Mild (Pain Scale 1-3) Docusate Sodium (Docusate Sodium 100 Mg Capsule) 100 mg PO DAILY PRN PRN Reason: Constipation Furosemide (Furosemide 40 Mg/4 Ml Vial) 40 mg IVPUSH BID@0900,1800 [facility]; Protocol Last Admin: 03/05/22 08:33 Dose: 40 mg Heparin Sodium (Porcine) (Heparin Sodium,Porcine 5,000 Unit/Ml Vial) 5,000 unit SUBCUT Q12H [facility] Last Admin: 03/05/22 08:33 Dose: 5,000 unit Morphine Sulfate (Morphine Sulfate 4 Mg/Ml Cartridge) 4 mg IVPUSH Q4H PRN; Protocol PRN Reason: Pain, Severe (Pain Scale 7-10) Ondansetron HCl (Ondansetron Hcl 4 Mg/2 Ml Vial) 4 mg IVPUSH Q8H PRN PRN Reason: Nausea and Vomiting Sodium Chloride (0.9 % Sodium Chloride Flush 3 Ml Syringe) 3 ml IVFLUSH QSHIFT [facility] Last Admin: 03/05/22 08:34 Dose: 3 ml Home Medications Medication Instructions Recorded Confirmed Type cholecalciferol (vitamin D3) 25 25 mcg PO MOWEFR@0900 03/05/22 03/05/22 History mcg (1,000 unit) tablet (Vitamin D3) fluocinonide 0.05 % topical cream 1 appl topical BID eczema 03/05/22 03/05/22 History Allergies Allergy/AdvReac Type Severity Reaction Status Date / Time ibuprofen Allergy Unknown Verified 03/04/22 20:47 Penicillins AdvReac Unknown Verified 03/04/22 20:47 Physical Exam Vital signs: Vital Signs Temp 98.0 F 03/05/22 07:19 Pulse 94 03/05/22 07:19 Resp 31 H 03/05/22 07:19 BP 124/76 03/05/22 07:19 Pulse Ox 9 L 03/05/22 07:19 O2 Del Method 03/05/22 07:19 O2 Flow Rate 4 03/05/22 07:19 Intake & Output 03/04/22 03/05/22 03/05/22 18:59 06:59 18:59 Other: Weight 77.1 kg Weight 77.1 kg - Constitutional Present: no acute distress - Routine HEENT Exam Head: Present: normal inspection Eye: Present: normal appearance, PERRL - Routine Neck Exam Present: supple. Absent: lymphadenopathy - Routine Respiratory Exam Present: decreased breath sounds - Routine Cardiovascular Exam Cardiovascular: Present: S1, S2 - Routine Abdominal Exam Present: distended - Routine Extremities Exam Present: pedal edema - Routine Skin Exam Present: intact - Routine Neurological Exam Present: alert, oriented X3 Hem/Onc Consult Result - Labs CBC & Chem 7: 03/05/22 09:27 03/05/22 09:27 Labs: Short CBC 03/04/22 03/05/22 Range/Units 21:31 09:27 WBC 10.3 9.3 (4.8-10.8) X10*3/uL Hgb 14.7 14.5 (12.0-16.0) g/dl Hct 46.9 47.8 H (37.0-47.0) % Plt Count 521 H 600 H (160-400) X10*3/uL BMP 03/04/22 03/05/22 21:31 09:27 Sodium 139 140 Potassium 4.8 5.0 Chloride 103 99 Carbon Dioxide 21 L 27 BUN 22 H 20 H Creatinine 0.75 0.90 Calcium 10.0 10.8 H D Liver Function 03/04/22 Range/Units 21:31 Total Bilirubin 0.2 (0.0-1.0) mg/dL AST 51 H (5-31) U/L ALT 26 (0-31) U/L Alkaline Phosphatase 83 (39-117) U/L Albumin 3.9 (3.5-5.0) g/dL Urine 03/04/22 Range/Units 21:48 Urine Color Dark Yellow Urine Appearance Cloudy Urine pH 5.0 (5.0-9.0) Ur Specific [place] >= 1.030 H (1.005-1.025) Urine Protein 30 (1+) H (Neg-Trace) mg/dL Urine Glucose (UA) Negative (Negative) mg/dL Assessment and Plan Patient Active problem list reviewed?: Yes (1) Abdominal ascites Status: Acute Assessment and plan: 1. This is a 56-year-old woman presenting with abdominal ascites, ovarian masses and large right pleural effusion suspicious for malignancy. CT angiogram was negative for PE, large bilateral pleural effusions with accompanying atelectasis and large volume ascites. CT abdomen/ pelvis showed: massive right ovarian cystic neoplasm, left ovary also appeared to be involved. This measured 14.8 cm with extensive peritoneal implants with omental caking some of which showed associated calcifications. Large massive tumors present within the cul-de-sac. Peritoneal implants present throughout the abdominal cavity. Favor serous ovarian carcinoma. Patient appears to have advanced ovarian cancer. If pleural cytology is positive this would be M1 disease or stage WIL cancer. LDH elevated at 577 units/liter, CA 125 is pending. She is being scheduled for ultrasound-guided paracentesis, thoracentesis and if possible peritoneal biopsy. Depending on pathology, further recommendations will be made. 2. Bilateral leg swelling, right thigh pain. I recommend bilateral lower extremity Doppler to rule out DVT. I thank you for this consultation, will follow with you. - Time Spent With Patient Time Spent with Patient (in minutes): 25
[2022-03-05 12:43] VITALS: BP 121/80; PULSE 96; RESP 22; TEMP 36.4; O2SAT 97
[2022-03-05 14:54] LABS: Adenovirus PCR Not Detected (Not Detect.); Bordetella parapertussis PCR Not Detected (Not Detect.); Bordetella pertussis PCR Not Detected (Not Detect.); Chlamydia pneumoniae PCR Not Detected (Not Detect.); Coronavirus 229E PCR Not Detected (Not Detect.); Coronavirus HKU1 PCR Not Detected (Not Detect.); Coronavirus NL63 PCR Not Detected (Not Detect.); Coronavirus OC43 PCR Not Detected (Not Detect.); Human metapneumovirus PCR Not Detected (Not Detect.); Influenza A PCR Not Detected (Not Detect.); Influenza B PCR Not Detected (Not Detect.); Mycoplasma pneumoniae PCR Not Detected (Not Detect.); Parainfluenza 1 PCR Not Detected (Not Detect.); Parainfluenza 2 PCR Not Detected (Not Detect.); Parainfluenza 3 PCR Not Detected (Not Detect.); Parainfluenza 4 PCR Not Detected (Not Detect.); RSV PCR Not Detected (Not Detect.); Rhino/Enterovirus PCR Not Detected (Not Detect.); SARS-CoV-2 PCR Not Detected (Not Detect.)
--- NOTE | 2022-03-05 15:31 | MHC.CM.PN ---
Met with patient in regards to discharge planning. Patient is very anxious at baseline and informs T/W that she has an intellectual issue and multiple mental health issues. Patient's responses to T/W questions are never directly answered. Patient was taking care of her mother. Her mother is currently in care home care at [facility] at [place]. Patient reports she is all alone since her mother was admitted to LT. Patient is not on oxygen at home. Patient states the oncology social worker at the PCP's office was trying to help patient get help at home but she stopped calling me. Apparently there are multiple issues with patient's home. It appears Elder at Risk was filed a couple of times for concerns for patient's mother. Don from [facility] was trying to offer assistance to patient and her mother but per patient he just stopped picking up his phone. Patient has a friend/advocate, named Candace that can help patient at times. Patient denies having a HCP. No HCP on file with PCP's office. Attempted to explain IMM and have patient sign it. Unable to redirect patient to get IMM signed. Left at patient's bedside. Patient may need chair van at discharge when medically stable. Patient very anxious about insurance. Apparently patient currently has Medicare and [employer], which will convert to [facility] on 03/10. Patient is very anxious about this because she states I didn't authorize this. Financial counselors consulted to try to assist patient with this. Continue to monitor for d/c needs.
--- NOTE | 2022-03-05 17:29 | HO.RADPN ---
RADIOLOGY Narrative Narrative: Right thoracentesis using 4 fr catheter. 1.1 L bloody fluid removed. RLQ paracentesis using 5 fr catheter. Large volume bloody fluid removed. Specimens sent from both. Omental biopsy using coaxial system. 4 20g core biopsies. All performed using US guidance.
[2022-03-05 19:34] LABS: MN% 93.3 %; PMN% 6.7 %; WBC Pleural Fluid 2.655 X10*3/uL
[2022-03-05] MEDS: Lidocaine HCl 1 % 20 ML VIAL 5 ML SUBCUT ×3 (19:39→19:53)
[2022-03-05 19:41] LABS: MN% 93.5 %; PMN% 6.5 %; RBC Peritoneal Fluid 0.079 X10*6/uL
[2022-03-05 19:52] LABS: Glucose Random 113 mg/dL (60-115); Lactate Dehydrogenase 591 U/L (122-220); Total Protein 6.5 g/dL (6.5-8.0)
[2022-03-05 19:57] VITALS: BP 117/63; PULSE 106; RESP 18; TEMP 36.8; O2SAT 94
[2022-03-05 21:35] LABS: BF Shift QC OK YES; Lymphocyte Peritoneal Fl 48 %; Monocytes Peritoneal Fl 15 %; Neutrophils Peritoneal Fluid 3 %; Other Peritioneal Fl 33 %
[2022-03-05 21:36] LABS: BF Shift QC OK YES; Other Cells Plerual Fl 44 %
[2022-03-05 21:38] LABS: Lymphocytes Pleural Fluid 26 %
[2022-03-05 21:39] LABS: Monocytes Pleural Fluid 30 %
[2022-03-05 21:48] LABS: pH Peritoneal Fluid 7.45
[2022-03-05 22:02] LABS: Glucose Pleural Fluid 23 MG/DL; Total Protein Pleural Fluid 5.5 GM/DL
[2022-03-05 23:10] VITALS: BP 118/73; PULSE 91; RESP 18; TEMP 36.4; O2SAT 98
[2022-03-05 23:13] LABS: Albumin Peritoneal Fluid 3.2 GM/DL; Glucose Peritoneal Fluid 85 MG/DL; LDH Peritoneal Fluid 1240 U/L; Total Protein Peritoneal Fluid 5.7 GM/DL
[2022-03-06 03:43] VITALS: BP 105/66; PULSE 105; RESP 20; TEMP 36.4; O2SAT 96
[2022-03-06 04:00] VITALS: BP 105/66; PULSE 108; RESP 20; TEMP 36.6; O2SAT 95
[2022-03-06] MEDS: Heparin Sodium,Porcine 5,000 UNIT/ML VIAL 5000 UNIT SUBCUT ×2 (05:00→17:16)
[2022-03-06 05:03] VITALS: BMI 24.8
[2022-03-06 07:02] VITALS: BP 119/63; PULSE 96; RESP 18; TEMP 36.1; O2SAT 98
[2022-03-06 07:43] LABS: Amylase Peritoneal Fluid 446
[2022-03-06] MEDS: 0.9 % Sodium Chloride Flush 3 ML SYRINGE IVFLUSH ×3 (08:29→19:50)
[2022-03-06] MEDS: Furosemide 40 MG/4 ML VIAL IVPUSH (08:29)
--- NOTE | 2022-03-06 11:03 | P.PNIM_ITS ---
Subjective Subjective Date of Service: 03/06/22 Review of Systems Follow up ascites, pleural effusion Feeling better after tap very nervous and anxious about heal issues Physical Exam Vital Signs: Vital Signs: Last Vital Signs Temp 97 F 03/06/22 07:02 Pulse 96 03/06/22 07:02 Resp 18 03/06/22 07:02 BP 119/63 03/06/22 07:02 Pulse Ox 98 03/06/22 07:02 O2 Del Method 03/06/22 07:02 O2 Flow Rate 4 03/06/22 07:02 Oxygen Flow Rate 3 03/04/22 20:25 BMI result Body Mass Index 24.8 Objective Data Active Medications Acetaminophen (Acetaminophen 325 Mg Tablet) 650 mg PO Q6H PRN PRN Reason: Pain, Mild (Pain Scale 1-3) Docusate Sodium (Docusate Sodium 100 Mg Capsule) 100 mg PO DAILY PRN PRN Reason: Constipation Heparin Sodium (Porcine) (Heparin Sodium,Porcine 5,000 Unit/Ml Vial) 5,000 unit SUBCUT Q12H [facility] Last Admin: 03/06/22 05:00 Dose: 5,000 unit Documented By: YOLIS Melatonin (Melatonin 3 Mg Tablet) 6 mg PO BEDTIME PRN PRN Reason: insomnia Morphine Sulfate (Morphine Sulfate 4 Mg/Ml Cartridge) 4 mg IVPUSH Q4H PRN; Protocol PRN Reason: Pain, Severe (Pain Scale 7-10) Ondansetron HCl (Ondansetron Hcl 4 Mg/2 Ml Vial) 4 mg IVPUSH Q8H PRN PRN Reason: Nausea and Vomiting Sodium Chloride (0.9 % Sodium Chloride Flush 3 Ml Syringe) 3 ml IVFLUSH QSHIFT [facility] Last Admin: 03/06/22 08:29 Dose: 3 ml Documented By: PB Tramadol HCl (Tramadol Hcl 50 Mg Tablet) 50 mg PO Q6H PRN PRN Reason: Pain, Severe (Pain Scale 7-10) Labs CBC & Chem 7: 03/05/22 09:27 03/05/22 19:01 Labs: Laboratory Results - last 24 hr 03/05/22 03/05/22 03/05/22 12:47 16:55 16:55 Random Glucose Lactate Dehydrogenase Total Protein Peritoneal pH Peritoneal WBC 2.810 Peritoneal RBC 0.079 Periton Neutrophils 3 Periton Lymphocytes 48 Peritoneal Monocytes 15 Peritoneal Other Cells 33 Peritoneal Tot Protein 5.7 Peritoneal Albumin 3.2 Peritoneal LDH 1240 Peritoneal Glucose 85 Peritoneal Amylase 446 Pleural WBC Pleural RBC Pleural Lymphocytes Pleural Monocytes Pleural Other Cells Pleural Total Protein Pleural Glucose Respiratory Panel Kim See Note Adenovirus (Rapid PCR) Not Detected B.pert (TEM-PCR) Not Detected B.parapertussis DNA PCR Not Detected C. pneumoniae DNA (PCR) Not Detected Coronavirus OC43 (PCR) Not Detected Coronavirus HKU1 (PCR) Not Detected Coronavirus 229E (PCR) Not Detected Coronavirus NL63 (PCR) Not Detected Human Metapneumovir PCR Not Detected Influenza A (RT-PCR) Not Detected Influenza B (RT-PCR) Not Detected M. pneumoniae (PCR) Not Detected Parainfluenza 1 (PCR) Not Detected Parainfluenza 2 (PCR) Not Detected Parainfluenza 3 (PCR) Not Detected Parainfluenza 4 (PCR) Not Detected RSV (PCR) Not Detected Entero/Rhino (PCR) Not Detected SARS-CoV-2 RNA (RT-PCR) Not Detected 03/05/22 03/05/22 03/05/22 16:55 16:55 16:55 Random Glucose Lactate Dehydrogenase Total Protein Peritoneal pH 7.45 Peritoneal WBC Peritoneal RBC Periton Neutrophils Periton Lymphocytes Peritoneal Monocytes Peritoneal Other Cells Peritoneal Tot Protein Peritoneal Albumin Peritoneal LDH Peritoneal Glucose Peritoneal Amylase Pleural WBC 2.655 Pleural RBC 0.050 Pleural Lymphocytes 26 Pleural Monocytes 30 Pleural Other Cells 44 Pleural Total Protein 5.5 Pleural Glucose 23 Respiratory Panel Kim Adenovirus (Rapid PCR) B.pert (TEM-PCR) B.parapertussis DNA PCR C. pneumoniae DNA (PCR) Coronavirus OC43 (PCR) Coronavirus HKU1 (PCR) Coronavirus 229E (PCR) Coronavirus NL63 (PCR) Human Metapneumovir PCR Influenza A (RT-PCR) Influenza B (RT-PCR) M. pneumoniae (PCR) Parainfluenza 1 (PCR) Parainfluenza 2 (PCR) Parainfluenza 3 (PCR) Parainfluenza 4 (PCR) RSV (PCR) Entero/Rhino (PCR) SARS-CoV-2 RNA (RT-PCR) 03/05/22 19:01 Random Glucose 113 Lactate Dehydrogenase 591 H Total Protein 6.5 Peritoneal pH Peritoneal WBC Peritoneal RBC Periton Neutrophils Periton Lymphocytes Peritoneal Monocytes Peritoneal Other Cells Peritoneal Tot Protein Peritoneal Albumin Peritoneal LDH Peritoneal Glucose Peritoneal Amylase Pleural WBC Pleural RBC Pleural Lymphocytes Pleural Monocytes Pleural Other Cells Pleural Total Protein Pleural Glucose Respiratory Panel Kim Adenovirus (Rapid PCR) B.pert (TEM-PCR) B.parapertussis DNA PCR C. pneumoniae DNA (PCR) Coronavirus OC43 (PCR) Coronavirus HKU1 (PCR) Coronavirus 229E (PCR) Coronavirus NL63 (PCR) Human Metapneumovir PCR Influenza A (RT-PCR) Influenza B (RT-PCR) M. pneumoniae (PCR) Parainfluenza 1 (PCR) Parainfluenza 2 (PCR) Parainfluenza 3 (PCR) Parainfluenza 4 (PCR) RSV (PCR) Entero/Rhino (PCR) SARS-CoV-2 RNA (RT-PCR) Microbiology Microbiology Results: Microbiology 03/05/22 16:55 Gram Stain - Final Thoracentesis Fluid Routine Culture - Preliminary No growth to date. Anaerobic Culture - Preliminary No growth to date. 03/05/22 16:55 Gram Stain - Final Abdomen - Abdominal Routine Culture - Preliminary No growth to date. Anaerobic Culture - Preliminary No growth to date. 03/04/22 21:34 Blood Culture - Preliminary Blood - Venous No growth after 24 hours. 03/04/22 21:31 Blood Culture - Preliminary Blood - Venous No growth after 24 hours. Assessment and Plan (1) Abdominal ascites: Status: Acute Plan 56-year-old female with past medical history of anxiety disorder presents to the hospital with complaints of ascites found to have a very in mass on imaging Ascites of malignancy s/p Paracentesis 5.2 L bloody fluid removed Hem/on following cytology pending Bilateral pleural effusion s/p thoracentesis 1.1 L of bloody fluid removed, cytology pending likely malignant due to above pulmonology consult for possible thoracocentesis given the significant large size of the pleural effusions, unlikley related to resp illness rather ovarian tumor causing fluid buildup continue oxygen as required, on 2 liters with sats at 94% Ovarian mass patient reports weight loss, no family history of cancer CT shows complex large neoplasm above in the right and possibly left ovary Hematology-Oncology following Ob Gyne consult for further guidance CA125 pending Mental health Severe PTSD worried about possibe dx of cancer Psych consult for emotionally support DVT prophylaxis: Heparin Attending Dr. Cunningham Continue hospitalization for treatment of possible ovarian cancer, pending cy tology Time Spent With Patient Time: Total time managing care of this patient today ____ minutes. Quality Stroke Does the patient have a stroke diagnosis?: No VTE Prior VTE?: No VTE Risk Level:: Medical - moderate - high VTE Device Contraindication: Treatment Not Indicated VTE Drug Contraindication: N/A - Med Ordered
[2022-03-06 11:34] VITALS: O2SAT 94
--- NOTE | 2022-03-06 14:29 | MHC.CM.PN ---
per rounds pt not ready for dc today plan remains home mo nasreenis
[2022-03-06 15:50] VITALS: BP 100/58; PULSE 100; RESP 20; TEMP 36.8; O2SAT 93
[2022-03-06] MEDS: Acetaminophen 325 MG TABLET 650 MG PO (17:55)
[2022-03-06 19:33] VITALS: PULSE 100; RESP 20; TEMP 36.6; O2SAT 91
[2022-03-07] VITALS: BP 105/62; PULSE 70; RESP 17; TEMP 36.6; O2SAT 93
[2022-03-07] MEDS: Melatonin 3 MG TABLET 6 MG PO (01:05)
[2022-03-07] MEDS: Acetaminophen 325 MG TABLET 650 MG PO ×2 (06:29→18:06)
[2022-03-07] MEDS: Heparin Sodium,Porcine 5,000 UNIT/ML VIAL 5000 UNIT SUBCUT ×2 (06:30→17:45)
[2022-03-07 07:59] VITALS: BP 115/56; PULSE 92; RESP 18; TEMP 36.3; O2SAT 92
[2022-03-07] MEDS: 0.9 % Sodium Chloride Flush 3 ML SYRINGE IVFLUSH ×3 (08:16→20:39)
[2022-03-07 12:00] VITALS: BP 126/72; PULSE 104; RESP 18; TEMP 36.3; O2SAT 92
--- NOTE | 2022-03-07 12:30 | P.CNPS_ITS ---
History of Present Illness Date of Service: 03/07/22 Chief Complaint: anxiety [facility] Medical History (Updated 03/07/22 @ 17:10 by Diane Britt APRN) Abdominal ascites Anxiety Anxiety Surgical History No pertinent past surgical history Diagnostics Vital Signs (24Hr): Vital Signs - 24 hr 03/06/22 15:50 03/06/22 19:33 03/07/22 00:00 Temperature 98.2 F 97.8 F 97.8 F Pulse Rate 100 100 70 Respiratory Rate 20 20 17 Blood Pressure 100/58 L 105/62 Pulse Oximetry 93 91 L 93 Oxygen Delivery Method Room Air Room Air Nasal Cannula Oxygen Flow Rate 2 03/07/22 07:59 03/07/22 12:00 Temperature 97.3 F 97.3 F Pulse Rate 92 104 H Respiratory Rate 18 18 Blood Pressure 115/56 L 126/72 Pulse Oximetry 92 92 Oxygen Delivery Method Room Air Room Air Oxygen Flow Rate BMI result Body Mass Index 24.8 Labs Results: 03/05/22 09:27 03/05/22 19:01 Labs: Laboratory Results - last 48 hr 03/05/22 03/05/22 03/05/22 12:47 16:55 16:55 Random Glucose Lactate Dehydrogenase Total Protein Peritoneal pH Peritoneal WBC 2.810 Peritoneal RBC 0.079 Periton Neutrophils 3 Periton Lymphocytes 48 Peritoneal Monocytes 15 Peritoneal Other Cells 33 Peritoneal Tot Protein 5.7 Peritoneal Albumin 3.2 Peritoneal LDH 1240 Peritoneal Glucose 85 Peritoneal Amylase 446 Pleural WBC Pleural RBC Pleural Lymphocytes Pleural Monocytes Pleural Other Cells Pleural Total Protein Pleural Glucose Respiratory Panel Kim See Note Adenovirus (Rapid PCR) Not Detected B.pert (TEM-PCR) Not Detected B.parapertussis DNA PCR Not Detected C. pneumoniae DNA (PCR) Not Detected Coronavirus OC43 (PCR) Not Detected Coronavirus HKU1 (PCR) Not Detected Coronavirus 229E (PCR) Not Detected Coronavirus NL63 (PCR) Not Detected Human Metapneumovir PCR Not Detected Influenza A (RT-PCR) Not Detected Influenza B (RT-PCR) Not Detected M. pneumoniae (PCR) Not Detected Parainfluenza 1 (PCR) Not Detected Parainfluenza 2 (PCR) Not Detected Parainfluenza 3 (PCR) Not Detected Parainfluenza 4 (PCR) Not Detected RSV (PCR) Not Detected Entero/Rhino (PCR) Not Detected SARS-CoV-2 RNA (RT-PCR) Not Detected 03/05/22 03/05/22 03/05/22 16:55 16:55 16:55 Random Glucose Lactate Dehydrogenase Total Protein Peritoneal pH 7.45 Peritoneal WBC Peritoneal RBC Periton Neutrophils Periton Lymphocytes Peritoneal Monocytes Peritoneal Other Cells Peritoneal Tot Protein Peritoneal Albumin Peritoneal LDH Peritoneal Glucose Peritoneal Amylase Pleural WBC 2.655 Pleural RBC 0.050 Pleural Lymphocytes 26 Pleural Monocytes 30 Pleural Other Cells 44 Pleural Total Protein 5.5 Pleural Glucose 23 Respiratory Panel Kim Adenovirus (Rapid PCR) B.pert (TEM-PCR) B.parapertussis DNA PCR C. pneumoniae DNA (PCR) Coronavirus OC43 (PCR) Coronavirus HKU1 (PCR) Coronavirus 229E (PCR) Coronavirus NL63 (PCR) Human Metapneumovir PCR Influenza A (RT-PCR) Influenza B (RT-PCR) M. pneumoniae (PCR) Parainfluenza 1 (PCR) Parainfluenza 2 (PCR) Parainfluenza 3 (PCR) Parainfluenza 4 (PCR) RSV (PCR) Entero/Rhino (PCR) SARS-CoV-2 RNA (RT-PCR) 03/05/22 19:01 Random Glucose 113 Lactate Dehydrogenase 591 H Total Protein 6.5 Peritoneal pH Peritoneal WBC Peritoneal RBC Periton Neutrophils Periton Lymphocytes Peritoneal Monocytes Peritoneal Other Cells Peritoneal Tot Protein Peritoneal Albumin Peritoneal LDH Peritoneal Glucose Peritoneal Amylase Pleural WBC Pleural RBC Pleural Lymphocytes Pleural Monocytes Pleural Other Cells Pleural Total Protein Pleural Glucose Respiratory Panel Kim Adenovirus (Rapid PCR) B.pert (TEM-PCR) B.parapertussis DNA PCR C. pneumoniae DNA (PCR) Coronavirus OC43 (PCR) Coronavirus HKU1 (PCR) Coronavirus 229E (PCR) Coronavirus NL63 (PCR) Human Metapneumovir PCR Influenza A (RT-PCR) Influenza B (RT-PCR) M. pneumoniae (PCR) Parainfluenza 1 (PCR) Parainfluenza 2 (PCR) Parainfluenza 3 (PCR) Parainfluenza 4 (PCR) RSV (PCR) Entero/Rhino (PCR) SARS-CoV-2 RNA (RT-PCR) Imaging Radiology Impressions: ITS Impressions Chest X-Ray 03/04/22 21:01 IMPRESSION: [id number] right and [id number] left pleural effusions. Associated consolidations are suspected likely representing atelectasis; superimposed infection cannot be excluded. Underlying mass lesion cannot be completely excluded. Chest CTA 03/04/22 23:15 IMPRESSION: * No pulmonary embolism. * No aortic aneurysm or dissection. * Large bilateral pleural effusions with accompanying atelectasis. * Large volume ascites. 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 Biopsy 03/05/22 17:00 IMPRESSION: Ultrasound-guided peritoneal biopsy. Venous Duplex 03/05/22 17:30 IMPRESSION: No DVT demonstrated in the bilateral lower extremities. Paracentesis Ultrasound 03/05/22 18:00 IMPRESSION: Ultrasound-guided paracentesis. 5.2 L of bloody fluid removed. Complex ascites with multiple partially solid partially and partially cystic peritoneal masses and large cystic mass in the pelvis measuring at least 14 cm. Thoracentesis Ultrasound 03/05/22 18:00 IMPRESSION: Ultrasound-guided right thoracentesis. Chest X-Ray 03/05/22 18:07 IMPRESSION: Moderate right and small left pleural effusion. No pneumothorax seen status post right thoracentesis. Medications Medications Current Medications Acetaminophen (Acetaminophen 325 Mg Tablet) 650 mg PO Q6H PRN PRN Reason: Pain, Mild (Pain Scale 1-3) Last Admin: 03/07/22 06:29 Dose: 650 mg Docusate Sodium (Docusate Sodium 100 Mg Capsule) 100 mg PO DAILY PRN PRN Reason: Constipation Heparin Sodium (Porcine) (Heparin Sodium,Porcine 5,000 Unit/Ml Vial) 5,000 unit SUBCUT Q12H [facility] Last Admin: 03/07/22 06:30 Dose: 5,000 unit Melatonin (Melatonin 3 Mg Tablet) 6 mg PO BEDTIME PRN PRN Reason: insomnia Last Admin: 03/07/22 01:05 Dose: 6 mg Morphine Sulfate (Morphine Sulfate 4 Mg/Ml Cartridge) 4 mg IVPUSH Q4H PRN; Protocol PRN Reason: Pain, Severe (Pain Scale 7-10) Ondansetron HCl (Ondansetron Hcl 4 Mg/2 Ml Vial) 4 mg IVPUSH Q8H PRN PRN Reason: Nausea and Vomiting Sodium Chloride (0.9 % Sodium Chloride Flush 3 Ml Syringe) 3 ml IVFLUSH QSHIFT [facility] Last Admin: 03/07/22 08:16 Dose: 3 ml Tramadol HCl (Tramadol Hcl 50 Mg Tablet) 50 mg PO Q6H PRN PRN Reason: Pain, Severe (Pain Scale 7-10) Allergies Allergies Allergy/AdvReac Type Severity Reaction Status Date / Time ibuprofen Allergy Unknown Verified 03/04/22 20:47 Penicillins AdvReac Unknown Verified 03/04/22 20:47 Assessment & Plan Total time managing care of this patient today ____ minutes.
--- NOTE | 2022-03-07 14:31 | HO.PM.IMPN ---
Subjective Subjective Date of Service: 03/07/22 Interval History: seen and examined this morning follow up for ascites, pleural effusion tangential, difficult to get direct answers from appears comfortable, denies abdominal pain, but rather has what she describes as fullness Review of Systems Review of Systems: Yes all other systems are reviewed and are negative Constitutional Constitutional: Denies chills and Denies fever(s) Cardiovascular Cardiovascular: Denies chest pain and Denies palpitations Respiratory Respiratory: Denies cough Endocrine Endocrine: Denies palpitations Physical Exam Vital Signs: Vital Signs: Last Vital Signs Temp 97.3 F 03/07/22 12:00 Pulse 104 H 03/07/22 12:00 Resp 18 03/07/22 12:00 BP 126/72 03/07/22 12:00 Pulse Ox 92 03/07/22 12:00 O2 Del Method 03/07/22 12:00 O2 Flow Rate 2 03/07/22 00:00 Oxygen Flow Rate 3 03/04/22 20:25 BMI result Body Mass Index 24.8 Const: Other: anxious General: no acute distress, alert and awake Resp: Effort & Inspection: normal respiratory effort, able to speak in complete sentences, no respiratory distress and no use of accessory muscles Cardio: Rate: regular rate Heart sounds: S1 normal heart sound present and S2 normal heart sound present GI: Other: softly distended Neuro: General: CN's II-XI intact bilaterally Extrem: Other: b/l leg edema - legs wrapped in LILA wraps Objective Data Active Medications Acetaminophen (Acetaminophen 325 Mg Tablet) 650 mg PO Q6H PRN PRN Reason: Pain, Mild (Pain Scale 1-3) Last Admin: 03/07/22 06:29 Dose: 650 mg Documented By: DEONTE Docusate Sodium (Docusate Sodium 100 Mg Capsule) 100 mg PO DAILY PRN PRN Reason: Constipation Heparin Sodium (Porcine) (Heparin Sodium,Porcine 5,000 Unit/Ml Vial) 5,000 unit SUBCUT Q12H [facility] Last Admin: 03/07/22 06:30 Dose: 5,000 unit Documented By: DEONTE Melatonin (Melatonin 3 Mg Tablet) 6 mg PO BEDTIME PRN PRN Reason: insomnia Last Admin: 03/07/22 01:05 Dose: 6 mg Documented By: DEONTE Morphine Sulfate (Morphine Sulfate 4 Mg/Ml Cartridge) 4 mg IVPUSH Q4H PRN; Protocol PRN Reason: Pain, Severe (Pain Scale 7-10) Ondansetron HCl (Ondansetron Hcl 4 Mg/2 Ml Vial) 4 mg IVPUSH Q8H PRN PRN Reason: Nausea and Vomiting Sodium Chloride (0.9 % Sodium Chloride Flush 3 Ml Syringe) 3 ml IVFLUSH QSHIFT [facility] Last Admin: 03/07/22 08:16 Dose: 3 ml Documented By: RUDOLPH Tramadol HCl (Tramadol Hcl 50 Mg Tablet) 50 mg PO Q6H PRN PRN Reason: Pain, Severe (Pain Scale 7-10) Labs CBC & Chem 7: 03/05/22 09:27 03/05/22 19:01 Microbiology Microbiology Results: Microbiology 03/05/22 16:55 Gram Stain - Final Abdomen - Abdominal Routine Culture - Preliminary No growth to date. Anaerobic Culture - Preliminary No growth to date. 03/05/22 16:55 Gram Stain - Final Thoracentesis Fluid Routine Culture - Preliminary No growth to date. Anaerobic Culture - Preliminary No growth to date. 03/04/22 21:34 Blood Culture - Preliminary Blood - Venous No growth after 48 hours. 03/04/22 21:31 Blood Culture - Preliminary Blood - Venous No growth after 48 hours. Assessment and Plan (1) Ascites, malignant: Status: Acute (2) Pleural effusion: Status: Acute (3) Ovarian mass: Status: Acute Plan 56-year-old female with past medical history of anxiety disorder presents to the hospital with complaints of ascites found to have a very in mass on imaging Ascites of malignancy s/p Paracentesis 5.2 L bloody fluid removed Hem/on following cytology - adencocarcinoma, metastatic Bilateral pleural effusion s/p thoracentesis 1.1 L of bloody fluid removed, cytology pending likely malignant due to above pleural effusions, unlikley related to resp illness rather ovarian tumor causing fluid buildup stable on room air pleural fluid cytology - adenocarcinoma, metastatic Ovarian mass patient reports weight loss, no family history of cancer CT shows complex large neoplasm above in the right and possibly left ovary Hematology-Oncology following no need for [employer] eval CA125 pending peritoneal biopsy results pending outpatient follow up with Oncology Mental health Severe PTSD worried about possible dx of cancer Psych consult for emotionally support DVT prophylaxis: Heparin Attending Dr. Cunningham seen by PT - rec STR Continue hospitalization for treatment of possible ovarian cancer, pending cytology, safe disposition Time Spent With Patient Time: Total time managing care of this patient today ____ minutes. Quality Stroke Does the patient have a stroke diagnosis?: No VTE Prior VTE?: No VTE Risk Level:: Medical - moderate - high VTE Device Contraindication: Treatment Not Indicated VTE Drug Contraindication: N/A - Med Ordered
[2022-03-07 15:24] VITALS: BP 121/64; PULSE 106; RESP 18; TEMP 36.4; O2SAT 92
--- NOTE | 2022-03-07 16:16 | MHC.CM.PN ---
PSYCH CONSULT STILL IN DRAFT FORM. CM AWAITING SIGNED REPORT AND FOR PATIENT TO ASSIGN HCP. PATIENT DOES NOT WANT TO CALL HER PROPOSED HCP TODAY, HE HAS A FAMILY FUNCTION.
--- NOTE | 2022-03-07 16:44 | P.CNPS_ITS ---
History of Present Illness Date of Service: 03/07/22 Chief Complaint: anxiety Reason for Consult: anxiety Requesting physician: Sara Bennett Sources of Information: patient interviewed and chart reviewed HPI Narrative: 56 yo female with anxiety and visual perceptual learning disability admitted for ascites, bilateral pleural effusion, BLE edema and ovarian mass along with anasarca, ascites. Pt experiencing anxiety due to several psychosocial stressors and new diagnosis of cancer . Pt very willing to meet. She is articulate, open and expresses her concerns clearly. Describes sx which led to ER eval, hospital course and results. Tearful when talking about this- life changed instantly. Describes herself as a care provider, having taken care of most of her family before their passing. Currently, mother, age 96 is in a local intermediate and pt has several worries about not being able to see her and help with her care. Sister, age 67, is estranged. Pt reports having experience with the [facility] mental health system over the years, both as patient and family member with poor outcomes. Reports as her mother's care provider she has had three protective service complaints filed, has worked with [facility] and local police to help her mother and Jacy Nicholejewels [place] from [facility], along with Dr. Seth and Nicki from Dr. Seth's office. Discussed her experiences and thoughts regarding interventions. Today, her main concern is her boiler at home. She will call [facility] ([place]) and [employer] for help. as her boiler needs attention every few days. Good friend and partner Madan cannot assist as he is celebrating holiday with family. Pt discussed her concerns about never having her own life as she has cared for family members, and is saddened now as she believes this diagnosis will shorten her opportunity to have experiences for herself. She reports a strong didi and willingness to work with this, but with anxiety and apprehension. Past Psychiatric History: Hx of OP Care in the past Hx of medicine trials- Trazodone was helpful Medical Evaluation Reviewed: Yes Personal & Social History: Father is Sister is estranged Mother is in a local intermediate at 96, she will be 97 on 2022 Review of Systems Constitutional: Reports body ache(s) (it feels as if I cannot support my body when I walk at times) Eyes: Reports no additional eye complaints Reports system reviewed and no additional complaints, except as documented Cardiovascular: Reports dyspnea and Reports dyspnea on exertion Respiratory: Reports dyspnea and Reports dyspnea on exertion Psychiatric: Reports anxiety, Reports change in appetite, Reports anhedonia and Reports suicidal ideation (denies, discussed her latter-day convictions) [facility] Medical History (Updated 03/07/22 @ 17:10 by Diane Britt APRN) Abdominal ascites Anxiety Anxiety Surgical History No pertinent past surgical history Social History: Cares for mother, age 96 Partner Madan is in [place] No other family she reports Substance History: 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 Trauma History: Affirms Diagnostics Vital Signs (24Hr): Vital Signs - 24 hr 03/06/22 19:33 03/07/22 00:00 03/07/22 07:59 Temperature 97.8 F 97.8 F 97.3 F Pulse Rate 100 70 92 Respiratory Rate 20 17 18 Blood Pressure 105/62 115/56 L Pulse Oximetry 91 L 93 92 Oxygen Delivery Method Room Air Nasal Cannula Room Air Oxygen Flow Rate 2 03/07/22 12:00 03/07/22 15:24 Temperature 97.3 F 97.5 F Pulse Rate 104 H 106 H Respiratory Rate 18 18 Blood Pressure 126/72 121/64 Pulse Oximetry 92 92 Oxygen Delivery Method Room Air Room Air Oxygen Flow Rate BMI result Body Mass Index 24.8 Labs Results: 03/05/22 09:27 03/05/22 19:01 Labs: Laboratory Results - last 48 hr 03/05/22 03/05/22 03/05/22 16:55 16:55 16:55 Random Glucose Lactate Dehydrogenase Total Protein Peritoneal pH 7.45 Peritoneal WBC 2.810 Peritoneal RBC 0.079 Periton Neutrophils 3 Periton Lymphocytes 48 Peritoneal Monocytes 15 Peritoneal Other Cells 33 Peritoneal Tot Protein 5.7 Peritoneal Albumin 3.2 Peritoneal LDH 1240 Peritoneal Glucose 85 Peritoneal Amylase 446 Pleural WBC Pleural RBC Pleural Lymphocytes Pleural Monocytes Pleural Other Cells Pleural Total Protein Pleural Glucose 03/05/22 03/05/22 03/05/22 16:55 16:55 19:01 Random Glucose 113 Lactate Dehydrogenase 591 H Total Protein 6.5 Peritoneal pH Peritoneal WBC Peritoneal RBC Periton Neutrophils Periton Lymphocytes Peritoneal Monocytes Peritoneal Other Cells Peritoneal Tot Protein Peritoneal Albumin Peritoneal LDH Peritoneal Glucose Peritoneal Amylase Pleural WBC 2.655 Pleural RBC 0.050 Pleural Lymphocytes 26 Pleural Monocytes 30 Pleural Other Cells 44 Pleural Total Protein 5.5 Pleural Glucose 23 Imaging Radiology Impressions: ITS Impressions Chest X-Ray 03/04/22 21:01 IMPRESSION: [id number] right and [id number] left pleural effusions. Associated consolidations are suspected likely representing atelectasis; superimposed infection cannot be excluded. Underlying mass lesion cannot be completely excluded. Chest CTA 03/04/22 23:15 IMPRESSION: * No pulmonary embolism. * No aortic aneurysm or dissection. * Large bilateral pleural effusions with accompanying atelectasis. * Large volume ascites. 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 Biopsy 03/05/22 17:00 IMPRESSION: Ultrasound-guided peritoneal biopsy. Venous Duplex 03/05/22 17:30 IMPRESSION: No DVT demonstrated in the bilateral lower extremities. Paracentesis Ultrasound 03/05/22 18:00 IMPRESSION: Ultrasound-guided paracentesis. 5.2 L of bloody fluid removed. Complex ascites with multiple partially solid partially and partially cystic peritoneal masses and large cystic mass in the pelvis measuring at least 14 cm. Thoracentesis Ultrasound 03/05/22 18:00 IMPRESSION: Ultrasound-guided right thoracentesis. Chest X-Ray 03/05/22 18:07 IMPRESSION: Moderate right and small left pleural effusion. No pneumothorax seen status post right thoracentesis. Mental Status Exam Mental Status Exam Patient Appearance: Fatigued and Appropriate Patient Orientation: Person, Place, Time and Situation Level of Consciousness: Alert Patient Behavior: Talkative, Cooperative, Anxious, Fearful, Distractible, Good Eye Contact and Crying Mood Description: Depressed and Anxious Affect Description: Anxious and Apprehensive Patient Cognition Impaired: No Ability to Follow Directions: Good Speech Pattern: Perseverating, Spontaneous Speech and Soft-Spoken Memory Description: Intact Hallucinations: None Delusions: Not Present Perceptual Disturbances: Depersonalization and Derealization Thought Process: Distracted, Rumination and Goal Oriented Thought Content: positive for Circumstantial, positive for Perseveration and positive for Suicidal Ideation (denies) Depressive Symptoms: Increased Anxiety, Diff. Making Decisions, Difficulty Sleeping, Changes in Appetite, Crying Spells, Significant Weight Loss, Feelings of Guilt, Unhappiness, Increased Fatigue, Thoughts of /Suicide (denies), Lo w Self Esteem, Loss of Energy, Difficulty Concentrating and Back Pain Judgement: Good Medications Medications Current Medications Acetaminophen (Acetaminophen 325 Mg Tablet) 650 mg PO Q6H PRN PRN Reason: Pain, Mild (Pain Scale 1-3) Last Admin: 03/07/22 06:29 Dose: 650 mg Docusate Sodium (Docusate Sodium 100 Mg Capsule) 100 mg PO DAILY PRN PRN Reason: Constipation Heparin Sodium (Porcine) (Heparin Sodium,Porcine 5,000 Unit/Ml Vial) 5,000 unit SUBCUT Q12H [facility] Last Admin: 03/07/22 06:30 Dose: 5,000 unit Melatonin (Melatonin 3 Mg Tablet) 6 mg PO BEDTIME PRN PRN Reason: insomnia Last Admin: 03/07/22 01:05 Dose: 6 mg Morphine Sulfate (Morphine Sulfate 4 Mg/Ml Cartridge) 4 mg IVPUSH Q4H PRN; Protocol PRN Reason: Pain, Severe (Pain Scale 7-10) Ondansetron HCl (Ondansetron Hcl 4 Mg/2 Ml Vial) 4 mg IVPUSH Q8H PRN PRN Reason: Nausea and Vomiting Sodium Chloride (0.9 % Sodium Chloride Flush 3 Ml Syringe) 3 ml IVFLUSH QSHIFT [facility] Last Admin: 03/07/22 15:24 Dose: 3 ml Tramadol HCl (Tramadol Hcl 50 Mg Tablet) 50 mg PO Q6H PRN PRN Reason: Pain, Severe (Pain Scale 7-10) Allergies Allergies Allergy/AdvReac Type Severity Reaction Status Date / Time ibuprofen Allergy Unknown Verified 03/04/22 20:47 Penicillins AdvReac Unknown Verified 03/04/22 20:47 Assessment & Plan Assessment & Plan (1) Anxiety: Status: Acute Code(s): F41.9 - Anxiety disorder, unspecified Plan Aby is a 56 yo female with new diagnoses of ovarian mass, malignant ascites, pleural effusion, anasarca. She has a history of a visual perceptual learning disability and anxiety. She identifies several psychosocial stressors related to care of her mother and family home that she identifies current concerns about. Plan: Refer to out patient therapy Pt declines medication interventions at that time Continue psychotherapy connection during pt's hospitalization Total time managing care of this patient today 65 minutes. Patient educated on: medication risk/benefits and therapeutic strategies Informed Consent: understands and further education needed
[2022-03-07 19:34] VITALS: BP 111/65; PULSE 100; RESP 18; TEMP 36.4; O2SAT 1
[2022-03-08] VITALS (7 sets, daily range): BP systolic 103–132; BP diastolic 62–73; PULSE 86–100; RESP 17–18; TEMP 36.3–37.2; O2SAT 92–95
[2022-03-08] MEDS: Acetaminophen 325 MG TABLET 650 MG PO (00:54)
[2022-03-08] MEDS: Melatonin 3 MG TABLET 6 MG PO (00:55)
[2022-03-08] MEDS: Heparin Sodium,Porcine 5,000 UNIT/ML VIAL 5000 UNIT SUBCUT ×2 (06:06→18:44)
[2022-03-08] MEDS: Morphine Sulfate 4 MG/ML CARTRIDGE IVPUSH (06:16)
--- NOTE | 2022-03-08 10:06 | MHC.CM.NN ---
THIS DIRECTOR IT TO ATTEMPT TO SECURE A SNF BED OFFER. REFERRALS PLACED AND WILL BE ADJUSTED NEEDED
[2022-03-08] MEDS: 0.9 % Sodium Chloride Flush 3 ML SYRINGE IVFLUSH ×2 (10:40→16:27)
--- NOTE | 2022-03-08 13:24 | MHC.CM.PN ---
PATIENT UNABLE TO PARTICIPATE IN MEANINGFUL CONVERSATION ABOUT POTENTIAL DISCHARGE PLANS. CALL TO [facility] DATA PROCESSING EQUIPMENT REPAIRER GAURAV CANAS AT [phone] AND MESSAGE LEFT FOR A CALL BACK TO THIS ELEPHANT KEEPER OF THIS NOTE, [facility] ARE FOLLOWING BUT HAVE NO BED OT OFFER TODAY
--- NOTE | 2022-03-08 16:28 | MHC.CM.PN ---
PATIENT STATES THAT SHE CAN NOT GO HOME SAFELY. SHE IS AWARE HER OPTION IS THEN TO DC TO REHAB IF A BED IS OFFERED. PATIENT AWARE THAT CM WILL DO BEST TO FIND OFFER AND PRESENT THEM TO HER SO SHE CAN MAKE HER PREFERENCE. PATIENT REFUSES TO HAVE STAFF SPEAK WITH [facility]. PATIENT AWARE THAT IF A BED IS OFFERED, A HCP IS NECESSARY, REGARDLESS OF HOW BUSY [facility] MAY BE AT THE MOMENT MOTHER IS AT [facility] IN [place] PATIENT ORIGINALLY WANTED A REFERRAL THERE BUT NOW DOES NOT. SHE REPEATS THAT SHE WISHES OT SPEAK WITH [facility] FIRST WHICH SHE SAYS WILL NOT HAPPEN UNTIL 03/10/22. PATIENT REMINDED THAT THE CONVERSATION MAY BE NEEDED PRIOR TO AND THAT THE FACILITY WILL NOT CONTACT THE HCP UNLESS SHE IS UNABLE TO SPEAK FOR HERSELF.
--- NOTE | 2022-03-08 17:24 | HO.PM.IMPN ---
Subjective Subjective Date of Service: 03/08/22 Interval History: seen and examined this morning follow up for ovarian mass, ascites, peural effusion concerns about multiple issues. not sure how she should be feeling difficult to get her to answer specific questions and difficult to obtain full ROS for this reason Physical Exam Vital Signs: Vital Signs: Last Vital Signs Temp 97.7 F 03/08/22 15:25 Pulse 97 03/08/22 15:25 Resp 18 03/08/22 15:25 BP 109/64 03/08/22 15:25 Pulse Ox 95 03/08/22 15:25 O2 Del Method 03/08/22 15:25 O2 Flow Rate 2 03/07/22 00:00 Oxygen Flow Rate 3 03/04/22 20:25 BMI result Body Mass Index 24.8 Const: Other: anxious General: no acute distress, alert and awake Resp: Effort & Inspection: normal respiratory effort, able to speak in complete sentences, no respiratory distress and no use of accessory muscles Cardio: Rate: regular rate Heart sounds: S1 normal heart sound present and S2 normal heart sound present GI: Other: softly distended Neuro: General: CN's II-XI intact bilaterally Extrem: Other: b/l leg edema - legs wrapped in LILA wraps Objective Data Active Medications Acetaminophen (Acetaminophen 325 Mg Tablet) 650 mg PO Q6H PRN PRN Reason: Pain, Mild (Pain Scale 1-3) Last Admin: 03/08/22 00:54 Dose: 650 mg Documented By: BEAU Docusate Sodium (Docusate Sodium 100 Mg Capsule) 100 mg PO DAILY PRN PRN Reason: Constipation Heparin Sodium (Porcine) (Heparin Sodium,Porcine 5,000 Unit/Ml Vial) 5,000 unit SUBCUT Q12H [facility] Last Admin: 03/08/22 06:06 Dose: 5,000 unit Documented By: DEONTE Melatonin (Melatonin 3 Mg Tablet) 6 mg PO BEDTIME PRN PRN Reason: insomnia Last Admin: 03/08/22 00:55 Dose: 6 mg Documented By: BEAU Morphine Sulfate (Morphine Sulfate 4 Mg/Ml Cartridge) 4 mg IVPUSH Q4H PRN; Protocol PRN Reason: Pain, Severe (Pain Scale 7-10) Last Admin: 03/08/22 06:16 Dose: 4 mg Documented By: DEONTE Ondansetron HCl (Ondansetron Hcl 4 Mg/2 Ml Vial) 4 mg IVPUSH Q8H PRN PRN Reason: Nausea and Vomiting Sodium Chloride (0.9 % Sodium Chloride Flush 3 Ml Syringe) 3 ml IVFLUSH QSHIFT [facility] Last Admin: 03/08/22 16:27 Dose: 3 ml Documented By: POLO Tramadol HCl (Tramadol Hcl 50 Mg Tablet) 50 mg PO Q6H PRN PRN Reason: Pain, Severe (Pain Scale 7-10) Labs CBC & Chem 7: 03/05/22 09:27 03/05/22 19:01 Microbiology Microbiology Results: Microbiology 03/05/22 16:55 Gram Stain - Final Abdomen - Abdominal Routine Culture - Final No growth after 2 days Anaerobic Culture - Preliminary No growth to date. 03/05/22 16:55 Gram Stain - Final Thoracentesis Fluid Routine Culture - Final No growth after 2 days Anaerobic Culture - Preliminary No growth to date. Assessment and Plan (1) Ascites, malignant: Status: Acute (2) Pleural effusion: Status: Acute (3) Ovarian mass: Status: Acute Plan 56-year-old female with past medical history of anxiety disorder presents to the hospital with complaints of ascites found to have a very in mass on imaging Ascites of malignancy s/p Paracentesis 5.2 L bloody fluid removed Hem/onc following cytology - adencocarcinoma, metastatic Bilateral pleural effusion s/p thoracentesis 1.1 L of bloody fluid removed, cytology pending likely malignant due to above pleural effusions, unlikley related to resp illness rather ovarian tumor causing fluid buildup stable on room air pleural fluid cytology - adenocarcinoma, metastatic Ovarian mass patient reports weight loss, no family history of cancer CT shows complex large neoplasm above in the right and possibly left ovary Hematology-Oncology following no need for PULVERIZER eval CA125 pending peritoneal biopsy results pending outpatient follow up with Oncology Mental health Severe PTSD worried about possible dx of cancer Psych consult - pt declining meds; rec referral to outpatient therapy DVT prophylaxis: Heparin Attending Dr. Cunningham seen by PT - rec STR Continue hospitalization for treatment of possible ovarian cancer, pending cytology, safe disposition Time Spent With Patient Time: Total time managing care of this patient today ____ minutes. Quality Stroke Does the patient have a stroke diagnosis?: No VTE Prior VTE?: No VTE Risk Level:: Medical - moderate - high VTE Device Contraindication: Treatment Not Indicated VTE Drug Contraindication: N/A - Med Ordered
[2022-03-09] MEDS: Morphine Sulfate 4 MG/ML CARTRIDGE IVPUSH (00:13)
[2022-03-09] MEDS: Melatonin 3 MG TABLET 6 MG PO (00:14)
[2022-03-09] MEDS: 0.9 % Sodium Chloride Flush 3 ML SYRINGE IVFLUSH ×4 (00:15→23:02)
[2022-03-09 04:00] VITALS: BP 120/85; PULSE 98; RESP 20; TEMP 36.9; O2SAT 94
[2022-03-09 06:00] VITALS: BMI 25.0
[2022-03-09] MEDS: Heparin Sodium,Porcine 5,000 UNIT/ML VIAL 5000 UNIT SUBCUT ×2 (06:09→17:51)
[2022-03-09 08:00] VITALS: BP 117/74; PULSE 98; RESP 18; TEMP 35.8; O2SAT 90
[2022-03-09 12:00] VITALS: TEMP 36.6
--- NOTE | 2022-03-09 14:31 | HO.PM.IMPN ---
Subjective Subjective Date of Service: 03/09/22 Interval History: seen and examined this morning some hypoxia overnight denies sob at this time reports improvement of leg edema Review of Systems Review of Systems: Yes all other systems are reviewed and are negative Constitutional Constitutional: Denies chills and Denies fever(s) Cardiovascular Cardiovascular: Denies chest pain and Denies dyspnea Respiratory Respiratory: Denies cough and Denies dyspnea Gastrointestinal Gastrointestinal: Denies diarrhea Physical Exam Vital Signs: Vital Signs: Last Vital Signs Temp 98 F 03/09/22 12:00 Pulse 98 03/09/22 08:00 Resp 18 03/09/22 08:00 BP 117/74 03/09/22 08:00 Pulse Ox 90 L 03/09/22 08:00 O2 Del Method 03/09/22 08:00 O2 Flow Rate 2 03/07/22 00:00 Oxygen Flow Rate 3 03/04/22 20:25 BMI result Body Mass Index 25.0 Const: Other: anxious General: no acute distress, alert and awake Resp: Other: diminished lung sounds right side Effort & Inspection: normal respiratory effort, able to speak in complete sentences, no respiratory distress and no use of accessory muscles Cardio: Rate: regular rate Heart sounds: S1 normal heart sound present and S2 normal heart sound present GI: Other: softly distended, slightly more then yesterday; nontender Skin: Other: blisters top of both feet with clear fluid; no surrounding erythema Neuro: General: CN's II-XI intact bilaterally Extrem: Other: b/l foot edema; leg edema improved Psych: Affect: Anxious affect present Objective Data Active Medications Acetaminophen (Acetaminophen 325 Mg Tablet) 650 mg PO Q6H PRN PRN Reason: Pain, Mild (Pain Scale 1-3) Last Admin: 03/08/22 00:54 Dose: 650 mg Documented By: BEAU Docusate Sodium (Docusate Sodium 100 Mg Capsule) 100 mg PO DAILY PRN PRN Reason: Constipation Heparin Sodium (Porcine) (Heparin Sodium,Porcine 5,000 Unit/Ml Vial) 5,000 unit SUBCUT Q12H [facility] Last Admin: 03/09/22 06:09 Dose: 5,000 unit Documented By: VOLODYMYR Melatonin (Melatonin 3 Mg Tablet) 6 mg PO BEDTIME PRN PRN Reason: insomnia Last Admin: 03/09/22 00:14 Dose: 6 mg Documented By: LYNDA Morphine Sulfate (Morphine Sulfate 4 Mg/Ml Cartridge) 4 mg IVPUSH Q4H PRN; Protocol PRN Reason: Pain, Severe (Pain Scale 7-10) Last Admin: 03/09/22 00:13 Dose: 4 mg Documented By: LYNDA Ondansetron HCl (Ondansetron Hcl 4 Mg/2 Ml Vial) 4 mg IVPUSH Q8H PRN PRN Reason: Nausea and Vomiting Sodium Chloride (0.9 % Sodium Chloride Flush 3 Ml Syringe) [address] [facility] Last Admin: 03/09/22 11:27 Dose: 3 ml Documented By: DIDI Tramadol HCl (Tramadol Hcl 50 Mg Tablet) 50 mg PO Q6H PRN PRN Reason: Pain, Severe (Pain Scale 7-10) Labs CBC & Chem 7: 03/05/22 09:27 03/05/22 19:01 Microbiology Microbiology Results: Microbiology 03/05/22 16:55 Direct Acid Fast Bacilli Smear - Final Thoracentesis Fluid 03/05/22 16:55 Direct Acid Fast Bacilli Smear - Final Abdominal Fluid 03/05/22 16:55 Gram Stain - Final Abdomen - Abdominal Routine Culture - Final No growth after 2 days Anaerobic Culture - Preliminary No growth to date. 03/05/22 16:55 Gram Stain - Final Thoracentesis Fluid Routine Culture - Final No growth after 2 days Anaerobic Culture - Preliminary No growth to date. Assessment and Plan (1) Ascites, malignant: Status: Acute (2) Pleural effusion: Status: Acute (3) Ovarian mass: Status: Acute Plan 56-year-old female with past medical history of anxiety disorder presents to the hospital with complaints of ascites found to have a very in mass on imaging Ascites of malignancy s/p Paracentesis 03/05 with 5.2 L bloody fluid removed Hem/onc following cytology - adencocarcinoma, metastatic Bilateral pleural effusion s/p thoracentesis 03/05 with 1.1 L of bloody fluid removed, cytology pending likely malignant due to above pleural effusions, unlikely related to resp illness rather ovarian tumor causing fluid buildup pleural fluid cytology - adenocarcinoma, metastatic some hypoxia overnight 03/08, now back on room air. will obtain repeat CXR to eval size of effusion lasix IV x [address] shows complex large neoplasm above in the right and possibly left ovary Hematology-Oncology following no need for CAP MAKER eval CA125 pending peritoneal biopsy results pending outpatient follow up with Oncology Mental health Severe PTSD worried about possible dx of cancer Psych consult - pt declining meds; rec referral to outpatient therapy DVT prophylaxis: Heparin Attending Dr. Villeda seen by PT - rec STR Continue hospitalization for treatment of possible ovarian cancer, pending cytology, safe disposition Time Spent With Patient Time: Total time managing care of this patient today ____ minutes. Quality Stroke Does the patient have a stroke diagnosis?: No VTE Prior VTE?: No VTE Risk Level:: Medical - moderate - high VTE Device Contraindication: Treatment Not Indicated VTE Drug Contraindication: N/A - Med Ordered
[2022-03-09 15:11] VITALS: BP 110/72; PULSE 106; RESP 20; TEMP 37.1; O2SAT 90
[2022-03-09] MEDS: Furosemide 20 MG/2 ML VIAL IVPUSH (17:51)
[2022-03-09 20:09] VITALS: BP 101/70; PULSE 92; RESP 20; TEMP 36.5; O2SAT 92
--- NOTE | 2022-03-09 20:22 | PM.HEMONCPN ---
Medical Summary - Medical Summary Date of Service: 03/09/22 Chief complaint: Ovarian neoplasm Interval History Interval history: Since admission she has been stable with control discomfort. Her anxiety remains a significant problem. It is likely she has an ovarian neoplasm. The CA-125 has not yet been made available. I will follow this patient with you over the weekend. Review of Systems - Constitutional Reports anorexia, Reports lack of energy, Reports malaise - Eyes Reports other - ENT Reports system reviewed and no additional complaints, except as documented - Cardiovascular Reports generalized swelling - Respiratory Reports dyspnea - Gastrointestinal Reports abdominal pain, Reports bloating - Genitourinary Reports abnormal periods - Musculoskeletal Reports muscle weakness - Integumentary/Breasts Skin/Breast: Reports other - Neurologic Reports system reviewed and no additional complaints, except as documented [facility] Medical History: Medical History (Last Updated 03/07/22 @ 17:10 by Diane Britt APRN) Abdominal ascites Anxiety Anxiety Family History: Family History (Last Reviewed 03/05/22 @ 06:12 by Amparo Connors MD) Father History of coronary artery disease Surgical History: Surgical History (Last Reviewed 03/07/22 @ 17:01 by Diane Britt APRN) No pertinent past surgical history Social History: Social History (Last Reviewed 03/05/22 @ 06:12 by Amparo Connors MD) Living Situation History: Household Members: None Housing: House Do you presently have visiting nurse or other home services: No Tobacco History: Patient Tobacco Use Status: Never used Tobacco 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 Current occupational status: disabled Home Medications and Allergies Current Medications: Current Medications Acetaminophen (Acetaminophen 325 Mg Tablet) 650 mg PO Q6H PRN PRN Reason: Pain, Mild (Pain Scale 1-3) Last Admin: 03/08/22 00:54 Dose: 650 mg Docusate Sodium (Docusate Sodium 100 Mg Capsule) 100 mg PO DAILY PRN PRN Reason: Constipation Heparin Sodium (Porcine) (Heparin Sodium,Porcine 5,000 Unit/Ml Vial) 5,000 unit SUBCUT Q12H HOWARD Last Admin: 03/09/22 17:51 Dose: 5,000 unit Melatonin (Melatonin 3 Mg Tablet) 6 mg PO BEDTIME PRN PRN Reason: insomnia Last Admin: 03/09/22 00:14 Dose: 6 mg Morphine Sulfate (Morphine Sulfate 4 Mg/Ml Cartridge) 4 mg IVPUSH Q4H PRN; Protocol PRN Reason: Pain, Severe (Pain Scale 7-10) Last Admin: 03/09/22 00:13 Dose: 4 mg Ondansetron HCl (Ondansetron Hcl 4 Mg/2 Ml Vial) 4 mg IVPUSH Q8H PRN PRN Reason: Nausea and Vomiting Sodium Chloride (0.9 % Sodium Chloride Flush 3 Ml Syringe) 3 ml IVFLUSH QSHIFT [facility] Last Admin: 03/09/22 17:52 Dose: 3 ml Tramadol HCl (Tramadol Hcl 50 Mg Tablet) 50 mg PO Q6H PRN PRN Reason: Pain, Severe (Pain Scale 7-10) Home Medications Medication Instructions Recorded Confirmed Type cholecalciferol (vitamin D3) 25 25 mcg PO MOWEFR@0900 03/05/22 03/05/22 History mcg (1,000 unit) tablet (Vitamin D3) fluocinonide 0.05 % topical cream 1 appl topical BID eczema 03/05/22 03/05/22 History Allergies Allergy/AdvReac Type Severity Reaction Status Date / Time ibuprofen Allergy Unknown Verified 03/04/22 20:47 Penicillins AdvReac Unknown Verified 03/04/22 20:47 Exam Vital signs: Vital Signs Temp 97.7 F 03/09/22 20:09 Pulse 92 03/09/22 20:09 Resp 20 03/09/22 20:09 BP 101/70 03/09/22 20:09 Pulse Ox 92 03/09/22 20:09 O2 Del Method 03/09/22 20:09 O2 Flow Rate 2 03/07/22 00:00 Intake & Output 03/09/22 03/09/22 03/10/22 06:59 18:59 06:59 Intake Total 840 / 1320 Output Total 400 / 400 Balance 840 / 1320 -400 / -400 Urine Output (Average ml/kg/hr) 0.52 Intake: Intake, Oral Amount 840 / 1320 Output: Output, Urine Amount 400 / 400 Other: Meal Refused No NPO No Dinner % Eaten 50% Number of Unmeasured Voids 1 Urine Bathroom Urine Color Pale Yellow Last Bowel Movement 03/08/22 Weight 64.1 kg Weight in Grams 38384 Weight 64.1 kg BMI result Body Mass Index 25.0 - Constitutional Present: no acute distress - Routine HEENT Exam Head: Present: normal inspection - Routine Neck Exam Present: full ROM - Routine Respiratory Exam Present: decreased breath sounds - Routine Cardiovascular Exam Cardiovascular: Present: RRR, S1, S2 - Routine Abdominal Exam Present: distended - Routine Exam Patient deferred: external exam - Routine Extremities Exam Present: pedal edema - Routine Skin Exam Present: intact - Routine Neurological Exam Present: alert, oriented X3 Data - Labs CBC & Chem 7: 03/05/22 09:27 03/05/22 19:01 Labs: 03/04/22 20:47 ECG 12 lead EKG Stat EKG Documentation DIRECTED 03/04/22 20:48 XR chest 1V Stat 03/04/22 21:06 Furosemide [Lasix] 20 mg IVPUSH ONCE ONE 03/04/22 21:31 B Type Natriuretic Peptide Stat Complete Blood Count Auto Diff Stat Comprehensive Met. Panel Stat D Dimer High Sensitivity Stat Ferritin Stat Lactic Acid Stat Prothrombin Time INR Stat Troponin-I High Sensitivity Stat 03/04/22 21:48 Resp Pathogen Panel - [facility] Stat UA ClnCatch+Micro w/rflx Cult Stat 03/04/22 22:41 CT angio chest PE protocol Stat 03/04/22 23:17 iohexoL 350 MG/ML [Omnipaque 350 MG/ML] 65 ml IV ONCE ONE 03/05/22 CT abdomen pelvis w IV con Stat XR chest 1V Stat US biopsy subcutaneous skin Routine US paracentesis abd w/image Stat US thoracentesis Routine US venous duplex LE BI Stat 03/05/22 00:52 Morphine Sulfate 4 mg IVPUSH ONCE ONE 03/05/22 05:06 iohexoL 350 MG/ML [Omnipaque 350 MG/ML] 85 ml IV ONCE ONE 03/05/22 09:00 Furosemide [Lasix] 40 mg IVPUSH BID@0900,1800 03/05/22 09:27 Basic Metabolic Panel DAILY@0600 Complete Blood Count Auto Diff DAILY@0600 Lactate Dehydrogenase Routine 03/05/22 10:39 Add Laboratory Test Stat 03/05/22 14:36 Lidocaine HCl 1 % MPF [Xylocaine 1 % MPF] 30 ml .ROUTE .STK-MED ONE 03/05/22 14:37 Lidocaine HCl 1 % MPF [Xylocaine 1 % MPF] 2 ml .ROUTE .STK-MED ONE 03/05/22 16:00 Lidocaine HCl 1 % [Xylocaine 1 %] 5 ml SUBCUT ONCE ONE 03/05/22 16:55 Albumin Peritoneal Fluid Stat Amylase Peritoneal Fluid Stat Cell Count w Diff Pleural Fld Routine Cell Ct wDiff Peritoneal FL Stat Glucose Peritoneal Fluid Stat Glucose Pleural Fluid Routine LDH Peritoneal Fluid Stat Total Protein Peritoneal Fluid Stat Total Protein Pleural Fluid Routine pH Peritoneal Fluid Stat Cytology [PTH] Stat 03/05/22 16:58 Lidocaine HCl 1 % MPF [Xylocaine 1 % MPF] 30 ml .ROUTE .STK-MED ONE 03/05/22 17:00 Lidocaine HCl 1 % [Xylocaine 1 %] 5 ml SUBCUT ONCE ONE 03/05/22 19:01 Glucose Random Stat Lactate Dehydrogenase Stat Total Protein Stat 03/05/22 19:52 Lidocaine HCl 1 % [Xylocaine 1 %] 5 ml SUBCUT ONCE ONE 03/09/22 CXR [XR chest 1V] Urgent 03/09/22 15:19 Furosemide [Lasix] 20 mg IVPUSH ONCE ONE Laboratory Last Values WBC 9.3 X10*3/uL (4.8-10.8) 03/05/22 09:27 RBC 6.26 X10*6/uL (4.20-5.50) H 03/05/22 09:27 Hgb 14.5 g/dl (12.0-16.0) 03/05/22 09:27 Hct 47.8 % (37.0-47.0) H 03/05/22 09:27 MCV 76.4 fL (80.0-98.0) L 03/05/22 09:27 MCH 23.2 pg (27.0-33.0) L 03/05/22 09:27 MCHC 30.3 g/dl (31.0-35.0) L 03/05/22 09:27 RDW 16.3 % (11.0-16.0) H 03/05/22 09:27 Plt Count 600 X10*3/uL (160-400) H 03/05/22 09:27 MPV 9.8 fL (9.4-12.3) 03/05/22 09:27 Immature Gran % (Auto) 0.3 % (0.0-0.4) 03/05/22 09:27 Neut % (Auto) 84.6 % (45-73) H 03/05/22 09: Lymph % (Auto) 7.5 % (20-40) L 03/05/22 09: [place] % (Auto) 7.1 % (2-11) 03/05/22 09: Eos % (Auto) 0.2 % (0-4) 03/05/22 09: Baso % (Auto) 0.3 % (0-2) 03/05/22 09: Lymph # (Auto) 0.7 X10*3/uL (1.2-4.9) L 03/05/22 09:27 [place] # (Auto) 0.7 X10*3/uL (0.1-1.2) 03/05/22 09: Eos # (Auto) 0.0 X10*3/uL (0.0-0.4) 03/05/22 09: Baso # (Auto) 0.0 X10*3/uL (0.0-0.2) 03/05/22 09: Abs Immat Gran (auto) 0.03 X10*3/uL (0.00-0.03) 03/05/22 09: Absolute Neuts (auto) 7.9 x10*3/uL (2.0-8.3) 03/05/22 09: Absolute Nucleated RBC 0.000 X10*3/uL (0.0-0.012) 03/05/22 09: Nucleated RBC % (auto) 0.0 /100WBC (0.0-0.2) 03/05/22 09: PT 13.2 SEC (10.0-13.1) H 03/04/22 21:31 INR 1.1 (0.9-1.1) 03/04/22 21:31 D-Dimer High Sensitivty 971 NG/ML 03/04/22 21:31 Sodium 140 mmol/L (135-145) 03/05/22 09:27 Potassium 5.0 mmol/L (3.3-5.1) 03/05/22 09: Chloride 99 mmol/L (96-108) 03/05/22 09: Carbon Dioxide 27 mmol/L (22-29) 03/05/22 09:27 Anion Gap 19 (12-20) 03/05/22 09:27 BUN 20 mg/dL (9-16) H 03/05/22 09:27 Creatinine 0.90 mg/dL (0.5-1.4) 03/05/22 09:27 Estim Creat Clear Calc 67.7 03/05/22 09:27 Estimated GFR > 60 03/05/22 09:27 Random Glucose 113 mg/dL (60-115) 03/05/22 19:01 Lactic Acid 1.9 mmol/L (0.5-2.0) 03/04/22 21:31 Calcium 10.8 mg/dL (8.4-10.2) H D 03/05/22 09:27 Ferritin 1249 ng/mL (10-250) H 03/04/22 21:31 Total Bilirubin 0.2 mg/dL (0.0-1.0) 03/04/22 21:31 AST 51 U/L (5-31) H 03/04/22 21:31 ALT 26 U/L (0-31) 03/04/22 21:31 Alkaline Phosphatase 83 U/L (39-117) 03/04/22 21:31 Lactate Dehydrogenase 591 U/L (122-220) H 03/05/22 19:01 Troponin I High Sens 8.4 ng/L (<3.5-17.0) 03/04/22 21:31 B-Natriuretic Peptide 24 pg/mL (<100) 03/04/22 21:31 Total Protein 6.5 g/dL (6.5-8.0) 03/05/22 19:01 Albumin 3.9 g/dL (3.5-5.0) 03/04/22 21:31 Urine Color Dark Yellow 03/04/22 21:48 Urine Appearance Cloudy 03/04/22 21:48 Urine pH 5.0 (5.0-9.0) 03/04/22 21:48 Ur Specific [place] >= 1.030 (1.005-1.025) H 03/04/22 21:48 Urine Protein 30 (1+) mg/dL (Neg-Trace) H 03/04/22 21:48 Urine Glucose (UA) Negative mg/dL (Negative) 03/04/22 21:48 Urine Ketones Trace mg/dL (Negative) 03/04/22 21:48 Urine Blood Trace (Negative) H 03/04/22 21:48 Urine Nitrite Negative (Negative) 03/04/22 21:48 Ur Leukocyte Esterase Negative (Negative) 03/04/22 21:48 Urine RBC 3-5 /HPF (0-2) H 03/04/22 21:48 Urine WBC 0-5 /HPF (0-5) 03/04/22 21:48 Ur Squamous Epith Cells 6-10 /HPF (0-2) 03/04/22 21:48 Urine Bacteria None Seen (None Seen) 03/04/22 21:48 Hyaline Casts >20 /LPF (0-2) 03/04/22 21:48 Granular Casts Present 03/04/22 21:48 Peritoneal pH 7.45 03/05/22 16:55 Peritoneal WBC 2.810 X10*3/uL 03/05/22 16:55 Peritoneal RBC 0.079 X10*6/uL 03/05/22 16:55 Periton Neutrophils 3 % 03/05/22 16:55 Periton Lymphocytes 48 % 03/05/22 16:55 Peritoneal Monocytes 15 % 03/05/22 16:55 Peritoneal Other Cells 33 % 03/05/22 16:55 Peritoneal Tot Protein 5.7 GM/DL 03/05/22 16:55 Peritoneal Albumin 3.2 GM/DL 03/05/22 16:55 Peritoneal LDH 1240 U/L 03/05/22 16:55 Peritoneal Glucose 85 MG/DL 03/05/22 16:55 Peritoneal Amylase 446 03/05/22 16:55 Pleural WBC 2.655 X10*3/uL 03/05/22 16:55 Pleural RBC 0.050 X10*3/uL 03/05/22 16:55 Pleural Lymphocytes 26 % 03/05/22 16:55 Pleural Monocytes 30 % 03/05/22 16:55 Pleural Other Cells 44 % 03/05/22 16:55 Pleural Total Protein 5.5 GM/DL 03/05/22 16:55 Pleural Glucose 23 MG/DL 03/05/22 16:55 Respiratory Panel Kim See Note 03/05/22 12:47 Adenovirus (Rapid PCR) Not Detected (Not Detect.) 03/05/22 12:47 B.pert (TEM-PCR) Not Detected (Not Detect.) 03/05/22 12:47 B.parapertussis DNA PCR Not Detected (Not Detect.) 03/05/22 12:47 C. pneumoniae DNA (PCR) Not Detected (Not Detect.) 03/05/22 12:47 Coronavirus OC43 (PCR) Not Detected (Not Detect.) 03/05/22 12:47 Coronavirus HKU1 (PCR) Not Detected (Not Detect.) 03/05/22 12:47 Coronavirus 229E (PCR) Not Detected (Not Detect.) 03/05/22 12:47 Coronavirus NL63 (PCR) Not Detected (Not Detect.) 03/05/22 12:47 Human Metapneumovir PCR Not Detected (Not Detect.) 03/05/22 12:47 Influenza A (RT-PCR) Not Detected (Not Detect.) 03/05/22 12:47 Influenza B (RT-PCR) Not Detected (Not Detect.) 03/05/22 12:47 M. pneumoniae (PCR) Not Detected (Not Detect.) 03/05/22 12:47 Parainfluenza 1 (PCR) Not Detected (Not Detect.) 03/05/22 12:47 Parainfluenza 2 (PCR) Not Detected (Not Detect.) 03/05/22 12:47 Parainfluenza 3 (PCR) Not Detected (Not Detect.) 03/05/22 12:47 Parainfluenza 4 (PCR) Not Detected (Not Detect.) 03/05/22 12:47 RSV (PCR) Not Detected (Not Detect.) 03/05/22 12:47 Entero/Rhino (PCR) Not Detected (Not Detect.) 03/05/22 12:47 SARS-CoV-2 RNA (RT-PCR) Not Detected (Not Detect.) 03/05/22 12:47 - Imaging Radiologist's impression: ITS Impressions Chest X-Ray 03/04/22 21:01 IMPRESSION: [id number] right and nramu-[id number] left pleural effusions. Associated consolidations are suspected likely representing atelectasis; superimposed infection cannot be excluded. Underlying mass lesion cannot be completely excluded. Chest CTA 03/04/22 23:15 IMPRESSION: * No pulmonary embolism. * No aortic aneurysm or dissection. * Large bilateral pleural effusions with accompanying atelectasis. * Large volume ascites. 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 Biopsy 03/05/22 17:00 IMPRESSION: Ultrasound-guided peritoneal biopsy. Venous Duplex 03/05/22 17:30 IMPRESSION: No DVT demonstrated in the bilateral lower extremities. Paracentesis Ultrasound 03/05/22 18:00 IMPRESSION: Ultrasound-guided paracentesis. 5.2 L of bloody fluid removed. Complex ascites with multiple partially solid partially and partially cystic peritoneal masses and large cystic mass in the pelvis measuring at least 14 cm. Thoracentesis Ultrasound 03/05/22 18:00 IMPRESSION: Ultrasound-guided right thoracentesis. Chest X-Ray 03/05/22 18:07 IMPRESSION: Moderate right and small left pleural effusion. No pneumothorax seen status post right thoracentesis. Chest X-Ray 03/09/22 12:13 IMPRESSION: 1. Mildly decreased small bilateral pleural effusions. 2. Low lung volumes with bronchovascular crowding and bibasilar subsegmental atelectasis. Assessment and Plan Patient Active problem list reviewed?: Yes (1) Ovarian mass Status: Acute Assessment and plan: We will await the CA 125 and cytology on pleural fluid and/or ascites. If ovarian cancer as documented. She should be referred to [employer] oncology. - Time Spent With Patient Time Spent with Patient (in minutes): 15
[2022-03-09 23:23] VITALS: BP 117/73; PULSE 97; RESP 20; TEMP 36.6; O2SAT 93
[2022-03-10] MEDS: Morphine Sulfate 4 MG/ML CARTRIDGE IVPUSH (01:02)
[2022-03-10] MEDS: Melatonin 3 MG TABLET 6 MG PO (01:03)
[2022-03-10] MEDS: Heparin Sodium,Porcine 5,000 UNIT/ML VIAL 5000 UNIT SUBCUT ×2 (05:31→17:56)
[2022-03-10 05:33] VITALS: BMI 25.4
[2022-03-10 07:13] VITALS: BP 118/81; PULSE 99; RESP 18; TEMP 36.3; O2SAT 90
[2022-03-10] MEDS: 0.9 % Sodium Chloride Flush 3 ML SYRINGE IVFLUSH ×3 (08:18→22:46)
--- NOTE | 2022-03-10 14:18 | P.PNIM_ITS ---
Subjective Subjective Date of Service: 03/10/22 Interval History: seen and examined this morning follow up for pleural effusion, ascites not sleeping well. abdominal distension. stress and anxiety about multiple issues denies shortness of breath Review of Systems Review of Systems: Yes all other systems are reviewed and are negative Constitutional Constitutional: Denies chills and Denies fever(s) Cardiovascular Cardiovascular: Denies chest pain, Denies palpitations and Denies dyspnea Respiratory Respiratory: Denies cough and Denies dyspnea Gastrointestinal Gastrointestinal: Denies nausea and Denies vomiting abdominal distention, denies pain Endocrine Endocrine: Denies palpitations Physical Exam Vital Signs: Vital Signs: Last Vital Signs Temp 97.3 F 03/10/22 07:13 Pulse 99 03/10/22 07:13 Resp 18 03/10/22 07:13 BP 118/81 03/10/22 07:13 Pulse Ox 90 L 03/10/22 07:13 O2 Del Method 03/10/22 07:13 O2 Flow Rate 2 03/07/22 00:00 Oxygen Flow Rate 3 03/04/22 20:25 BMI result Body Mass Index 25.4 Const: Other: anxious General: no acute distress, alert and awake Resp: Other: dim at bases; able to speak in very long complete sentences without difficulty Effort & Inspection: normal respiratory effort, no respiratory distress and no use of accessory muscles Cardio: Rate: regular rate Heart sounds: S1 normal heart sound present and S2 normal heart sound present GI: Other: softly distended, slightly more then yesterday; nontender Skin: Other: b/l foot blisters covered in c/d/i dressing Neuro: General: CN's II-XI intact bilaterally Extrem: Other: b/l foot edema; leg edema improved Psych: Affect: Anxious affect present Objective Data Active Medications Acetaminophen (Acetaminophen 325 Mg Tablet) 650 mg PO Q6H PRN PRN Reason: Pain, Mild (Pain Scale 1-3) Last Admin: 03/08/22 00:54 Dose: 650 mg Documented By: BEAU Docusate Sodium (Docusate Sodium 100 Mg Capsule) 100 mg PO DAILY PRN PRN Reason: Constipation Heparin Sodium (Porcine) (Heparin Sodium,Porcine 5,000 Unit/Ml Vial) 5,000 unit SUBCUT Q12H HOWARD Last Admin: 03/10/22 05:31 Dose: 5,000 unit Documented By: VOLODYMYR Melatonin (Melatonin 3 Mg Tablet) 6 mg PO BEDTIME PRN PRN Reason: insomnia Last Admin: 03/10/22 01:03 Dose: 6 mg Documented By: VOLODYMYR Ondansetron HCl (Ondansetron Hcl 4 Mg/2 Ml Vial) 4 mg IVPUSH Q8H PRN PRN Reason: Nausea and Vomiting Sodium Chloride (0.9 % Sodium Chloride Flush 3 Ml Syringe) 3 ml IVFLUSH QSHIFT HOWARD Last Admin: 03/10/22 08:18 Dose: 3 ml Documented By: LYNDA Tramadol HCl (Tramadol Hcl 50 Mg Tablet) 50 mg PO Q6H PRN PRN Reason: Pain, Severe (Pain Scale 7-10) Labs CBC & Chem 7: 03/05/22 09:27 03/05/22 19:01 Microbiology Microbiology Results: Microbiology 03/05/22 16:55 Gram Stain - Final Abdomen - Abdominal Routine Culture - Final No growth after 2 days Anaerobic Culture - Preliminary No growth to date. 03/04/22 21:34 Blood Culture - Final Blood - Venous No growth after 5 days. 03/04/22 21:31 Blood Culture - Final Blood - Venous No growth after 5 days. 03/05/22 16:55 Direct Acid Fast Bacilli Smear - Final Thoracentesis Fluid 03/05/22 16:55 Direct Acid Fast Bacilli Smear - Final Abdominal Fluid 03/05/22 16:55 Gram Stain - Final Thoracentesis Fluid Routine Culture - Final No growth after 2 days Anaerobic Culture - Preliminary No growth to date. Assessment and Plan (1) Anxiety: Status: Acute (2) Ascites, malignant: Status: Acute (3) Pleural effusion: Status: Acute (4) Ovarian mass: Status: Acute Plan 56-year-old female with past medical history of anxiety disorder presents to the hospital with complaints of ascites found to have a very in mass on imaging Ascites of malignancy s/p Paracentesis 03/05 with 5.2 L bloody fluid removed -cytology - nargis ncocarcinoma, metastatic Hem/onc following abdominal distension increasing, will obtain US to determine volume of ascites for repeat tap Bilateral pleural effusion s/p thoracentesis 03/05 with 1.1 L of bloody fluid removed, cytology pending likely malignant due to above pleural effusions, unlikely related to resp illness rather ovarian tumor causing fluid buildup pleural fluid cytology - adenocarcinoma, metastatic repeat CXR 03/09 showing mildly decreased small b/l pleural effusions no sob, o2 sat borderline lasix IV x [address] shows complex large neoplasm above in the right and possibly left ovary Hematology-Oncology following no need for PROCUREMENT INTERN eval CA125 pending peritoneal biopsy results pending outpatient follow up with Oncology Mental health h/o anxiety, depression PTSD - not on meds at baseline Psych consult - pt declining meds; rec referral to outpatient therapy DVT prophylaxis: Heparin Attending Dr. Lott seen by PT - rec STR, CM aware Continue hospitalization for treatment pleural effusion, abdominal ascites, safe disposition Time Spent With Patient Time: Total time managing care of this patient today ____ minutes. Quality Stroke Does the patient have a stroke diagnosis?: No VTE Prior VTE?: No VTE Risk Level:: Medical - moderate - high VTE Device Contraindication: Treatment Not Indicated VTE Drug Contraindication: N/A - Med Ordered
[2022-03-10 15:12] VITALS: BP 106/60; PULSE 105; RESP 18; TEMP 37.2; O2SAT 91
[2022-03-10 20:00] VITALS: BP 105/69; PULSE 107; RESP 16; TEMP 37; O2SAT 91
[2022-03-10 22:59] VITALS: BP 115/72; PULSE 78; RESP 18; TEMP 36.3; O2SAT 97
[2022-03-11] MEDS: Morphine Sulfate 4 MG/ML CARTRIDGE IVPUSH (01:42)
[2022-03-11 04:00] VITALS: BP 106/58; PULSE 99; RESP 16; TEMP 36.2; O2SAT 92
[2022-03-11] MEDS: Heparin Sodium,Porcine 5,000 UNIT/ML VIAL 5000 UNIT SUBCUT ×2 (05:32→17:11)
[2022-03-11 05:44] VITALS: BMI 25.5
[2022-03-11 06:54] LABS: Anion Gap 18 (12-20); Blood Urea Nitrogen 15 mg/dL (9-16); Calcium 8.9 mg/dL (8.4-10.2); Carbon Dioxide 24 mmol/L (22-29); Chloride 99 mmol/L (96-108); Creatinine Clr Calc Pharmacy 80.6; Estimated Glomerular Filt Rate > 60; Glucose Random 92 mg/dL (60-115); Sodium 136 mmol/L (135-145)
[2022-03-11 08:00] VITALS: BP 126/70; PULSE 95; RESP 19; TEMP 36.4; O2SAT 92
[2022-03-11] MEDS: 0.9 % Sodium Chloride Flush 3 ML SYRINGE IVFLUSH ×3 (08:45→22:18)
--- NOTE | 2022-03-11 11:10 | P.PNIM_ITS ---
Subjective Subjective Date of Service: 03/11/22 Interval History: seen and examined this morning follow up for pleural effusion, ascites not sleeping well. abdominal distension. stress and anxiety about multiple issues denies shortness of breath Review of Systems Review of Systems: Yes all other systems are reviewed and are negative Constitutional Constitutional: Denies chills and Denies fever(s) Cardiovascular Cardiovascular: Denies chest pain, Denies palpitations and Denies dyspnea Respiratory Respiratory: Denies cough and Denies dyspnea Gastrointestinal Gastrointestinal: Denies nausea and Denies vomiting abdominal distention, denies pain Endocrine Endocrine: Denies palpitations Physical Exam Vital Signs: Vital Signs: Last Vital Signs Temp 97.6 F 03/11/22 08:00 Pulse 95 03/11/22 08:00 Resp 19 03/11/22 08:00 BP 126/70 03/11/22 08:00 Pulse Ox 92 03/11/22 08:00 O2 Del Method 03/11/22 08:00 O2 Flow Rate 2.0 03/11/22 08:00 Oxygen Flow Rate 3 03/04/22 20:25 BMI result Body Mass Index 25.5 Appearing in no acute distress lung sounds are clear to auscultation heart regular rate rhythm, clear S1, S2 positive bowel sounds, abdomen is soft, nontender neuro patient is alert x3, no focal deficits Objective Data Active Medications Acetaminophen (Acetaminophen 325 Mg Tablet) 650 mg PO Q6H PRN PRN Reason: Pain, Mild (Pain Scale 1-3) Last Admin: 03/08/22 00:54 Dose: 650 mg Documented By: BEAU Docusate Sodium (Docusate Sodium 100 Mg Capsule) 100 mg PO DAILY PRN PRN Reason: Constipation Heparin Sodium (Porcine) (Heparin Sodium,Porcine 5,000 Unit/Ml Vial) 5,000 unit SUBCUT Q12H HOWARD Last Admin: 03/11/22 05:32 Dose: 5,000 unit Documented By: VOLODYMYR Melatonin (Melatonin 3 Mg Tablet) 6 mg PO BEDTIME PRN PRN Reason: insomnia Last Admin: 03/10/22 01:03 Dose: 6 mg Documented By: VOLODYMYR Morphine Sulfate (Morphine Sulfate 4 Mg/Ml Cartridge) 4 mg IVPUSH Q4H PRN; Protocol PRN Reason: Pain, Severe (Pain Scale 7-10) Last Admin: 01/02/23 01:42 Dose: 4 mg Documented By: VOLODYMYR Ondansetron HCl (Ondansetron Hcl 4 Mg/2 Ml Vial) 4 mg IVPUSH Q8H PRN PRN Reason: Nausea and Vomiting Sodium Chloride (0.9 % Sodium Chloride Flush 3 Ml Syringe) 3 ml IVFLUSH QSHIFT [facility] Last Admin: 03/11/22 08:45 Dose: 3 ml Documented By: LYNDA Labs CBC & Chem 7: 03/05/22 09:27 03/11/22 05:32 Labs: Laboratory Results - last 24 hr 03/11/22 05:32 Anion Gap 18 Estim Creat Clear Calc 80.6 Estimated GFR > 60 Random Glucose 92 Calcium 8.9 D Microbiology Microbiology Results: Microbiology 03/05/22 16:55 Gram Stain - Final Abdomen - Abdominal Routine Culture - Final No growth after 2 days Anaerobic Culture - Final NO GROWTH AFTER 5 DAYS 03/05/22 16:55 Gram Stain - Final Thoracentesis Fluid Routine Culture - Final No growth after 2 days Anaerobic Culture - Final NO GROWTH AFTER 5 DAYS Assessment and Plan (1) Anxiety: Status: Acute (2) Ascites, malignant: Status: Acute (3) Pleural effusion: Status: Acute (4) Ovarian mass: Status: Acute Plan 56-year-old female with past medical history of anxiety disorder presents to the hospital with complaints of ascites found to have a very in mass on imaging Ascites of malignancy s/p Paracentesis 03/05 with 5.2 L bloody fluid removed -cytology - adencocarcinoma, metastatic Hem/onc following abdominal distension increasing, abd us showing small amount of ascites Bilateral pleural effusion s/p thoracentesis 03/05 with 1.1 L of bloody fluid removed pleural fluid cytology - adenocarcinoma, metastatic repeat CXR 03/09 showing mildly decreased small b/l pleural effusions no sob, o2 sat borderline lasix IV x [address] shows complex large neoplasm above in the right and possibly left ovary Hematology-Oncology following CA125 pending peritoneal biopsy results pending outpatient follow up with Oncology Mental health h/o anxiety, depression PTSD - not on meds at baseline Psych consult - pt declining meds; rec referral to outpatient therapy plan to start Trazadone for help sleeping DVT prophylaxis: Heparin Attending Dr. Moeller seen by PT - rec STR, CM aware Continue hospitalization for treatment pleural effusion, abdominal ascites, safe disposition Time Spent With Patient Time: Total time managing care of this patient today ____ minutes. Quality Stroke Does the patient have a stroke diagnosis?: No VTE Prior VTE?: No VTE Risk Level:: Medical - moderate - high VTE Device Contraindication: Treatment Not Indicated VTE Drug Contraindication: N/A - Med Ordered
--- NOTE | 2022-03-11 13:41 | PM.HEMONCPN ---
Medical Summary - Medical Summary Date of Service: 03/11/22 Chief complaint: Ovariancancer Medical Summary: The pathology report has been read as adenocarcinoma. The CA 125 is still pending. She denies any significant pain. She will need to see SENIOR PRODUCT DEVELOPMENT SCIENTIST oncology. Interval History Interval history: Since admission she has been stable with control discomfort. Her anxiety remains a significant problem. It is likely she has an ovarian neoplasm. The CA-125 has not yet been made available. I will follow this patient with you over the weekend.Her pathology report is available and shows adenocarcinoma. Review of Systems - Neurologic Reports system reviewed and no additional complaints, except as documented [facility] Medical History: Medical History (Last Updated 03/07/22 @ 17:10 by Diane Britt APRN) Abdominal ascites Anxiety Anxiety Family History: Family History (Last Reviewed 03/05/22 @ 06:12 by Amparo Connors MD) Father History of coronary artery disease Surgical History: Surgical History (Last Reviewed 03/07/22 @ 17:01 by Diane Britt APRN) No pertinent past surgical history Social History: Social History (Last Reviewed 03/05/22 @ 06:12 by Amparo Connors MD) Living Situation History: Household Members: None Housing: House Do you presently have visiting nurse or other home services: No Tobacco History: Patient Tobacco Use Status: Never used Tobacco 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 Current occupational status: disabled Home Medications and Allergies Current Medications: Current Medications Acetaminophen (Acetaminophen 325 Mg Tablet) 650 mg PO Q6H PRN PRN Reason: Pain, Mild (Pain Scale 1-3) Last Admin: 03/08/22 00:54 Dose: 650 mg Docusate Sodium (Docusate Sodium 100 Mg Capsule) 100 mg PO DAILY PRN PRN Reason: Constipation Heparin Sodium (Porcine) (Heparin Sodium,Porcine 5,000 Unit/Ml Vial) 5,000 unit SUBCUT Q12H HOWARD Last Admin: 03/11/22 05:32 Dose: 5,000 unit Melatonin (Melatonin 3 Mg Tablet) 6 mg PO BEDTIME PRN PRN Reason: insomnia Last Admin: 03/10/22 01:03 Dose: 6 mg Morphine Sulfate (Morphine Sulfate 4 Mg/Ml Cartridge) 4 mg IVPUSH Q4H PRN; Protocol PRN Reason: Pain, Severe (Pain Scale 7-10) Last Admin: 03/11/22 01:42 Dose: 4 mg Ondansetron HCl (Ondansetron Hcl 4 Mg/2 Ml Vial) 4 mg IVPUSH Q8H PRN PRN Reason: Nausea and Vomiting Sodium Chloride (0.9 % Sodium Chloride Flush 3 Ml Syringe) 3 ml IVFLUSH QSHIFT HOWARD Last Admin: 03/11/22 08:45 Dose: 3 ml Home Medications Medication Instructions Recorded Confirmed Type cholecalciferol (vitamin D3) 25 25 mcg PO MOWEFR@0900 03/05/22 03/05/22 History mcg (1,000 unit) tablet (Vitamin D3) fluocinonide 0.05 % topical cream 1 appl topical BID eczema 03/05/22 03/05/22 History Allergies Allergy/AdvReac Type Severity Reaction Status Date / Time ibuprofen Allergy Unknown Verified 03/04/22 20:47 Penicillins AdvReac Unknown Verified 03/04/22 20:47 Exam Vital signs: Vital Signs Temp 97.6 F 03/11/22 08:00 Pulse 95 03/11/22 08:00 Resp 19 03/11/22 08:00 BP 126/70 03/11/22 08:00 Pulse Ox 92 03/11/22 08:00 O2 Del Method 03/11/22 08:00 O2 Flow Rate 2.0 03/11/22 08:00 Intake & Output 03/10/22 03/11/22 03/11/22 18:59 06:59 18:59 Intake Total 840 / 840 Balance 840 / 840 Intake: Intake, Oral Amount 840 / 840 Other: Dinner % Eaten 100% Number of Unmeasured Voids 2 2 Urine Bathroom Weight 65.4 kg [place] Weight in Grams 65498 Weight 65.4 kg BMI result Body Mass Index 25.5 - Constitutional Present: no acute distress - Routine HEENT Exam Head: Present: normal inspection - Routine Neck Exam Present: full ROM - Routine Respiratory Exam Present: decreased breath sounds - Routine Cardiovascular Exam Cardiovascular: Present: RRR, S1, S2 - Routine Abdominal Exam Present: distended - Routine Exam Patient deferred: external exam - Routine Extremities Exam Present: pedal edema - Routine Skin Exam Present: intact - Routine Neurological Exam Present: alert, oriented X3 Data - Labs CBC & Chem 7: 03/05/22 09:27 03/11/22 05:32 - Imaging Radiologist's impression: ITS Impressions Chest X-Ray 03/04/22 21:01 IMPRESSION: Hvxygqce-[id number]-tgpxy right and ozodf-qn-twlebmng left pleural effusions. Associated consolidations are suspected likely representing atelectasis; superimposed infection cannot be excluded. Underlying mass lesion cannot be completely excluded. Chest CTA 03/04/22 23:15 IMPRESSION: * No pulmonary embolism. * No aortic aneurysm or dissection. * Large bilateral pleural effusions with accompanying atelectasis. * Large volume ascites. 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 Biopsy 03/05/22 17:00 IMPRESSION: Ultrasound-guided peritoneal biopsy. Venous Duplex 03/05/22 17:30 IMPRESSION: No DVT demonstrated in the bilateral lower extremities. Paracentesis Ultrasound 03/05/22 18:00 IMPRESSION: Ultrasound-guided paracentesis. 5.2 L of bloody fluid removed. Complex ascites with multiple partially solid partially and partially cystic peritoneal masses and large cystic mass in the pelvis measuring at least 14 cm. Thoracentesis Ultrasound 03/05/22 18:00 IMPRESSION: Ultrasound-guided right thoracentesis. Chest X-Ray 03/05/22 18:07 IMPRESSION: Moderate right and small left pleural effusion. No pneumothorax seen status post right thoracentesis. Chest X-Ray 03/09/22 12:13 IMPRESSION: 1. Mildly decreased small bilateral pleural effusions. 2. Low lung volumes with bronchovascular crowding and bibasilar subsegmental atelectasis. Abdomen Ultrasound 03/10/22 16:00 IMPRESSION: Bilateral small to moderate-sized pleural effusions and small amount of ascites. Other findings described above. Assessment and Plan Patient Active problem list reviewed?: Yes (1) Ovarian mass Status: Acute Assessment and plan: She is stable. I would recommend to see SENIOR PRODUCT DEVELOPMENT SCIENTIST oncology at this point. - Time Spent With Patient Time Spent with Patient (in minutes): 15
--- NOTE | 2022-03-11 14:35 | MHC.CM.PN ---
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 PATIENT DOES NOT DRIVE AND RELIES ON OTHERS HE GIVES PERMISSION FOR T/W TO CALL BACK FROM PATIENT'S ROOM SO THAT SHE CAN DISCUSS HER DIAGNOSIS, THIS IS PATIENT'S PREFERENCE. [facility]AD WILL BE IN TODAY AROUND 1430 PER PATIENT REQUEST. PATIENT PREFERS THAT NEXT LEVEL OF CARE DECISION BE MADE WITH HIS HELP. HOSPITALIST MADE AWARE
--- NOTE | 2022-03-11 15:40 | MHC.CM.PN ---
PATIENT'S PROPOSED HCP IS IN ROOM. TWO ATTEMPTS TO ENGAGE IN CONVERSATION WITH PATIENT AND VISITOR UNSUCCESSFUL. PATIENT STATES I CAN RING WHEN I AM READY VISITOR ATTEMPTED TO ASK T/W WHAT THE PLAN FOR DC IS, BUT PATIENT STATES I AM NOT THERE YET .
--- NOTE | 2022-03-11 16:08 | MHC.CM.PN ---
HCP IN CHART AND UPLOADED INTO [facility]
--- NOTE | 2022-03-11 17:16 | W.MHC.ACPN ---
Advanced Care Planning Note Advanced Care Planning Note Time spent (in minutes): 60 Narrative: Discussed in depth with patient and her significant other regarding diagnosis and possible plans of treatment. Due to the patient's extreme anxiety it was difficult for her to absorb all of the information however her significant other seemed to understand and was able to relay back the information that was given. The patient has decided to be discharged to her significant other's home rather than outpatient rehab. She would be interested in having visiting nurse services and physical therapy. She was made aware that her prognosis is poor and she will follow up with the oncologist to determine what treatments are available for her, however unsure of how much the patient really grasped. Also present briefcase sewer, Nneka Cates Problems Discussed (1) Anxiety: (2) Ascites, malignant: (3) Pleural effusion: (4) Ovarian mass:
[2022-03-11 18:33] VITALS: BP 116/73; PULSE 90; RESP 20; TEMP 36.2; O2SAT 95
[2022-03-12] MEDS: Morphine Sulfate 4 MG/ML CARTRIDGE IVPUSH (01:44)
[2022-03-12] MEDS: Melatonin 3 MG TABLET 6 MG PO (01:44)
[2022-03-12 04:00] VITALS: RESP 20
--- NOTE | 2022-03-12 05:13 | PC.NURSE ---
assumed care at 0300 per report from previous rn pt would like to refuse all vitals and assessments until morning shift. pervious rn told airline ticket agent not to obtain 0400 vitals do to pt refusing.
[2022-03-12 08:00] VITALS: BP 123/81; PULSE 97; RESP 20; TEMP 36.3; O2SAT 93
[2022-03-12] MEDS: 0.9 % Sodium Chloride Flush 3 ML SYRINGE IVFLUSH (08:12)
--- NOTE | 2022-03-12 08:36 | MHC.CM.PN ---
Addendum entered by Nneka Jasmine RN 03/12/22 14:15: NO OFFERS OF VNA SERVICES AT THIS TIME. [facility] TRANSITIONS OF CARE RN, KEVIN, AWARE CASE MANAGEMENT STILL ATTEMPTING Original Note: REFERRAL TO [facility] PATIENT IS NEW TO [facility] INSURANCE PER CONVERSATION WITH TRANSITION OF CARE RN, KEVIN [phone], T/W WILL NOTIFY KEVIN OF ACCEPTANCE. HCP WILL BE IN AFTER 1430 TODAY TO TRANSPORT HOME.
--- NOTE | 2022-03-12 10:15 | P.DS_ITS ---
DS: Providers Provider Date of Service: 03/12/22 Date of admission: 03/05/22 05:59 Primary care physician: Ramon Seth MD Consults: 03/05/22 00:52 Consult to Pulmonology Routine Consulting Provider: Adams Stanton Reason for consultation: large pleural effusion Has provider been notified: No 03/05/22 05:57 Consult to Hematology / Oncology Routine Consulting Provider: Tiffany Moran Reason for consultation: Ovarian mass Has provider been notified: No 03/05/22 09:33 Consult to Psychiatry Routine Consulting Provider: Psych Covering Reason for consultation: severe PTSD, anxiety, new cancer dx Has provider been notified: No Attending physician on discharge: Kei Cunningham Discharging clinician: Sara Bennett DS: Diagnosis Discharge Diagnosis (1) Anxiety: Status: Acute (2) Ascites, malignant: Status: Acute (3) Pleural effusion: Status: Acute (4) Ovarian mass: Status: Acute DS: Summary Hospital Course Hospital Course: HP as per admitting provider 56-year-old female who reports no previous signifi cant medical history except for anxiety with possible developmental delay, presents to the hospital with complaints of abdominal distension.? Patient is a very poor historian, see has flight of ideas, unable to keep a straight story, but reports that since January 28 she noticed significant abdominal bloating, difficulty breathing.? She reports that she has also noticed significant weight loss and feels that she has lost muscle mass.? She reports difficulty sleeping, unable to get comfortable in any position.? Otherwise difficult to have patient focus and tell a straight story.? She reports no chest pain, no abdominal pain, no diarrhea or constipation, no urinary symptoms .? Patient also complaining of lower extremity edema for the past 1 week. She reports that none of this has been attributed to her stress and anxiety. Labs are significant for respiratory rate of 26, heart rate of 118, blood pressure 169/82, Labs on arrival significant for WBC count of 10.3, hemoglobin of 14.7, hematocrit 46.9, PT of 13.2, creatinine of 0.75, calcium of 10.0, ferritin of 1249, albumin of 3.9, UA negative for acute infection, Troponin negative Chest CT negative for PE, no aortic aneurysm or dissection, chest CT shows large bilateral pleural effusion with accompanying atelectasis, abdominal pelvic CT shows large complex cystic and solid neoplasm involving the right ovary possibly left ovary as well with extensive peritoneal carcinomatosis Patient given Lasix with a good affect and will be admitted for further management . Discussed in depth with patient's primary care provider, Dr. Ramon Seth, regarding patient's diagnosis and plan of care. The patient has a scheduled follow-up appointment with her primary care provider on 03/14/2021. She will have a follow-up appointment with the oncologist, Dr. Moran, this week, the office was contacted and made aware that the patient will need an appointment. The patient was seen and evaluated by the psychiatric team, unfortunately the p atient declined medications for PTSD or anxiety. . Malignant ascites s/p Paracentesis 03/05 with 5.2 L bloody fluid removed -cytology - adencocarcinoma, metastatic Hem/onc following , plan for outpatient follow-up with Dr. Moran will likely need outpatient paracentesis for re accumulation of ascites fluid Malignant pleural effusions s/p thoracentesis 03/05 with 1.1 L of bloody fluid removed pleural fluid cytology - adenocarcinoma, metastatic repeat CXR 03/09 showing mildly decreased small b/l pleural effusions no sob, o2 sat borderline will likely need outpatient thoracentesis for re accumulation of pleural fluid Ovarian mass CT shows complex large neoplasm above in the right and left ovary Hematology-Oncology following CA125 pending peritoneal biopsy results pending outpatient follow up with Oncology Mental health h/o anxiety, depression PTSD - not on meds at baseline Psych consult - pt declining meds; rec referral to outpatient therapy plan to start Trazodone for help sleeping encourage outreach for mental health counseling in light of diagnosis Blisters to feet Not open or infected , secondary to edema Monitor VNA please check abd girth for re accumulation of fluid and respiratory status as well Time Spent with Patient Time attestation: Total time managing care of this patient today ____ minutes. Discharge coordination time: Greater than 30 minutes Quality: Safe Use of Opioids Does Pt have an Active Cancer Diagnosis on the Problem List?: No Quality: Stroke Does the patient have a stroke diagnosis?: No Physical Exam Vital Signs: Vital Signs: Last Vital Signs Temp 97.4 F 03/12/22 08:00 Pulse 97 03/12/22 08:00 Resp 20 03/12/22 08:00 BP 123/81 03/12/22 08:00 Pulse Ox 93 03/12/22 08:00 O2 Del Method 03/12/22 08:00 O2 Flow Rate 2.0 03/11/22 08:00 Oxygen Flow Rate 3 03/04/22 20:25 BMI result Body Mass Index 25.5 Appearing in no acute distress, thin and pale head is normocephalic atraumatic eyes pupils are PERRLA sclera is anicteric mouth throat mucous membranes are intact and moist neck is supple no lymphadenopathy, no JVD noted lung sounds are clear to auscultation heart regular rate rhythm, clear S1, S2 positive bowel sounds, abdomen is soft, nontender, mild abd distension and bloating neuro patient is alert x3, no focal deficits DS: Data Data Completed and Pending Completed studies during hospitalization [Text1]: Pending at discharge 03/05/22 16:55 Cytology [PTH] Stat Pending studies at discharge: Pending at discharge 03/05/22 15:33 Surgical Path [Surgical] [PTH] Routine Discharge Plan Discharge Anticipated Discharge Date/Time: 03/12/22 14:42 Patient Disposition: Home Health Service Discharge Diagnosis: Malignant ascites Malignant pleural effusions Ovarian mass Anxiety Referrals: Ramon Seth MD [Primary Care Provider] - 1 Week Discharge Medications: New melatonin 3 mg Tablet 6 mg PO BEDTIME PRN (Reason: insomnia) Qty: 28 0RF trazodone 50 mg tablet 50 mg PO BEDTIME Qty: 30 0RF oxycodone 5 mg tablet 5 mg PO Q4H PRN (Reason: pain) Qty: 18 0RF Rx Instructions: Partial Fill upon patient request. Continued fluocinonide 0.05 % cream 1 appl topical BID Rx Instructions: apply to hands cholecalciferol (vitamin D3) [Vitamin D3] 25 mcg (1,000 unit) Tablet 25 mcg PO MOWEFR@0900 Discharge Orders: Discharge Order (Routine); Ordered 03/12/22 Ordered By: Sara Bennett Diet: Advance to usual diet Activity on Discharge: As tolerated Stand Alone Forms: Patient Portal Discharge page Care Plan Goals: Continue outpatient follow-up Health Concerns: Malignant ascites Malignant pleural effusions Ovarian mass Anxiety Plan of Treatment: Follow up with Dr. Seth at your previously scheduled appointment on 03/14/21 Follow-up with the oncologist, Dr. Moran for further recommendations for treatment Take all medications as prescribed Assessment: See discharge summary
--- NOTE | 2022-03-12 14:12 | MHC.CM.PN ---
CALL TO [facility] @ [phone] MESSAGE LEFT INFORMING PIEDAD THAT NO VNA HAS BEEN SECURED YET AND THE PROCESS COULD TAKE INTO TOMORROW. CALL BACK NUMBER FOR THIS CLINICAL SERVICES PROFESSIONAL LEFT ON HIS VOICEMAIL
--- NOTE | 2022-03-12 14:38 | MHC.CM.PN ---
Addendum entered by Nneka Jasmine RN 03/12/22 14:53: [facility] IS ON SITE TO TRANSPORT PATIENT HOME. RN AWARE [facility] OFFER[facility] SERVICES AND CONTACT NUMBER FOR AGENCY FOUND ON DC PAPERWORK Original Note: [facility] ACCEPTING. SECOND MESSAGE LEFT FOR PIEDAD @ [phone], INFORMING HIM OF OFFERING VNA T/W ALSO STATED THAT PATIENT CAN LEAVE AT ANYTIME NOW, ORIGINAL, AGREED UPON PLAN WAS ANYTIME AFTER 1430 TODAY
--- NOTE | 2022-03-12 15:13 | W.MHC.F2F ---
Service Date Service Date: 03/12/22 Encounter Date of encounter: 03/12/22 Reasons for Services Signs and symptoms assessed: Ascites, pleural effusion ovarian cancer weakness Reason for detention: CV/CP assess and/or care and other (monitor abd girth for ascites fluid ) Reason for physical therapy: home safety and mobility and energy conservation Homebound: Leaving the home is medically contraindicated at this time without the asist of a device and/or another person due th the listed conditions above and below. Reason homebound: unsteady gait / fall risk, shortness of breath at rest and immunosuppression / infection risk Certification: Based on the above findings, I certify that this patient is confined to the home and needs intermittent detention care, physical therapy and/or speech therapy, or continues to need occupational therapy. The patient is under my care, and I have initiated the establishment of the plan of care. The patient will be followed by a physician who will periodically review the plan of care. Time Spent With Patient Time: Total time managing care of this patient today ____ minutes.
--- NOTE | 2022-03-13 13:26 | MHC.CM.PN ---
POST DC NOTE- CALL FROM BRITTANY OF DR [facility]'S OFFICE. BRITTANY UPDATED WITH PATIENT'S DC PLAN AND [facility] SERVICES. DC SUMMARY AND ASSOCIATED REPORTS FAXED TO BRITTANY PER REQUEST @ [phone]. CALL ALSO RECEIVED FROM GAURAV RINCON OF [facility] WHO SAYS THAT PATIENT CAN RESUME/ UTILIZE SOCIAL WORK SERVICES AT ANYTIME
[2022-03-15 09:24] LABS: CA-125 >12000 U/mL (<35)
== END 2022-03-12 15:49 | disposition home health service (06) | DRG 755 ==
LOC: HO.ED 23:52 → HO.EDOVER 03-05 06:12 → HO.S3 03-05 18:35
PROVIDERS: Internal Medicine; Physician Assistant Medical; Radiology Diagnostic Radiology; Admitting Provider Internal Medicine; Emergency Provider Emergency Medicine; PCP Internal Medicine; Visit Provider Nurse Practitioner Acute Care
PROC: 0W9G3ZX Drainage of Peritoneal Cavity, Percutaneous Approach, Diagnostic (ICD-10-PCS; principal; 2022-03-05 15:00)
PROC: 0W9G3ZX Drainage of Peritoneal Cavity, Percutaneous Approach, Diagnostic (ICD-10-PCS; 2022-03-05 15:00)
PROC: 0W9G3ZX Drainage of Peritoneal Cavity, Percutaneous Approach, Diagnostic (ICD-10-PCS; 2022-03-05 15:00)
DX: C56.3 Malignant neoplasm of bilateral ovaries (principal); C78.6 Secondary malignant neoplasm of retroperitoneum and peritoneum; R18.0 Malignant ascites; F41.9 Anxiety disorder, unspecified; F43.10 Post-traumatic stress disorder, unspecified; Z20.822 Contact with and (suspected) exposure to COVID-19; Z88.0 Allergy status to penicillin; Z88.6 Allergy status to analgesic agent; Z79.899 Other long term (current) drug therapy
CPT/HCPCS: 11104; 32555; 36415; 49083; 71045; 71275; 74177; 76705; 80048; 80053; 81001; 82042; 82150; 82728; 82945; 82947; 83605; 83615; 83880; 83986; 84155; 84157; 84484; 85025; 85379; 85610; 86304; 87040; 87070; 87073; 87116; 87205; 87206; 87633; 88112; 88304; 88305; 88341; 88342; 89051; 93005; 93970; 96374; 97162; 99285; 99498; J1940; J2270; Q9967

== ENCOUNTER 2022-03-13 15:23 | Inpatient (IN) | payer OTHER, SELFPAY ==
[2022-03-13] VITALS (10 sets, daily range): BP systolic 105–124; BP diastolic 60–91; PULSE 95–107; RESP 12–28; TEMP 36.4–37.1; O2SAT 87–98; BMI 25.0
--- NOTE | ~2022-03-13 | XR_ITS ---
EXAMINATION: XR CHEST CLINICAL INFORMATION: Pleural effusion COMPARISON: Chest x-ray March 16, 2022 TECHNIQUE: Frontal view of the chest was obtained. FINDINGS: Stable orientation of the bilateral chest tubes. Stable tiny right-sided pleural effusion with some suspected mild fluid within the right fissure. Left pleural effusion has essentially resolved. There is no pneumothorax. Cardiac silhouette is normal in size. XR/XR chest 1V IMPRESSION: 1. Stable tiny right-sided pleural effusion. 2. Left pleural effusion has essentially resolved.
--- NOTE | ~2022-03-13 | US_ITS ---
EXAMINATION: US GUIDED PARACENTESIS CLINICAL INFORMATION: Ascites. COMPARISON: None TECHNIQUE: Following explaining ultrasound-guided paracentesis procedure, benefits, risks a written consent was obtained. Patient was placed supine on ultrasound stretcher and preliminary ultrasound imaging was obtained. An optimal site was selected along the right lower quadrant and marked on the skin. The marked area was cleaned and draped in the usual sterile manner. 1% lidocaine was injected at puncture site. Through a small skin incision, a 4-[place] catheter was advanced into the peritoneal space. After observing fluid return, stylet was withdrawn and catheter connected to vacuum bottle via connecting cannula. After obtaining all fluid and observing normal fluid return, catheter was removed and complete hemostasis achieved at puncture site. Sterile dressing was applied postprocedure. Patient tolerated procedure extremely well. FINDINGS: On pulmonary ultrasound imaging, there is moderate ascites seen most localized in the right lower quadrant. Approximately 4.4 L of light red/yellow cloudy color fluid was removed. Part of this fluid was sent to the lab. US/US paracentesis abd w/image IMPRESSION: Successful ultrasound-guided diagnostic and therapeutic paracentesis.
--- NOTE | ~2022-03-13 | XR_ITS ---
EXAMINATION: XR CHEST CLINICAL INFORMATION: Pleural effusions COMPARISON: Chest x-ray March 13, 2022 TECHNIQUE: Frontal view of the chest was obtained. FINDINGS: Bilateral pigtail catheters are again demonstrated. Continued interval decrease in size of still small right-sided pleural effusion. Stable trace amount of left-sided pleural fluid. No pneumothorax is present. There is some suspected atelectasis of the right lung base. The cardiac silhouette is normal in size. XR/XR chest 1V IMPRESSION: Continued interval decrease in size of still small right-sided pleural effusion with persistent trace left-sided pleural fluid.
--- NOTE | ~2022-03-13 | CT_ITS ---
Indication: Distention, positive d-dimer EXAMINATION: Pre and postcontrast CT, CTA chest. Image postprocessing is performed and these images are reviewed at an independent workstation. CT of the abdomen pelvis. This CT examination was performed using dose optimization techniques as appropriate, variously including the following: *Automated exposure control *Adjustment of mA and/or kV according to patient size (this includes techniques or standardized protocols for targeted exams where dose is matched to indication/reason for exam; i.e. extremities or head) *Use of iterative reconstruction technique. Radiation dose 233 and 574. 85 mL Omnipaque 350. Axial imaging with coronal and sagittal reformatted images. Comparison previous dated 05/05/2021 and 03/05/2022. CT chest; Mildly suboptimal bolus of contrast. The examination is also limited by significant motion. There is no central embolism. As described due to motion cannot rule out a peripheral embolism here. The thoracic inlet is felt to be comparable to previous. The axillary regions are unremarkable. The central mediastinal structures appear not significantly changed. Large effusions right greater than left. As a result there is compression atelectasis of the right lower lobe and right middle lobe. Findings similar to previous. On the left collapsed left lower lobe and lingula region similar to previous. Upper abdomen; Once again there is fluid here. Similar to previous. Moderate ascites in the upper abdomen with more marked ascites in the pelvis. In addition some loculation with soft tissue densities. Findings may well be consistent with carcinomatosis. Appearance is similar to previous. The bowel pattern is felt to be nonobstructing. Once again some low-density structures within the liver unchanged. Spleen is within normal limits. Region the pancreas is comparable Area the adrenal glands comparable. The kidneys are nonhydronephrotic. Once again some probable periaortic nodes versus varices are noted. Similar to previous. Once again mixed fluid and soft tissue density in the region of the halle. Large mass in the deep pelvis once again seen Review of the bone windows does not demonstrate evidence for a bony lesion. CT/CT angio chest PE protocol IMPRESSION: Motion limits evaluation of the chest. There is no central embolism but a peripheral embolism cannot be excluded on this study. Otherwise appearance is similar to previous. Large right greater than left effusions which are slightly less in size than previous exam but still significant. Areas of compressive lung collapse are once again noted In the abdomen pelvis once again ascites is seen slightly less in the upper abdomen but equal or increased in the lower abdomen pelvis and as described soft tissue masses are also present and findings suggesting carcinomatosis.
--- NOTE | ~2022-03-13 | XR_ITS ---
EXAMINATION: XR CHEST CLINICAL INFORMATION: SOB COMPARISON: None TECHNIQUE: Frontal view of the chest was obtained. FINDINGS: There is moderate haziness in both lung bases from pleural effusion and underlying compressive atelectasis. The upper lungs are clear. Heart size is not well-visualized. There is mild increased pulmonary vascularity but no congestion suspected. No gross bony abnormality. XR/XR chest 1V IMPRESSION: 1. Moderate bilateral pleural effusions with underlying compressive atelectasis. 2. Mild increased pulmonary vascularity but no congestion suspected.
--- NOTE | ~2022-03-13 | XR_ITS ---
EXAMINATION: XR CHEST CLINICAL INFORMATION: Chest tube placement. COMPARISON: Chest x-ray 03/13/2022, 6:[address] chest 03/13/2022 TECHNIQUE: Frontal portable view of the chest was obtained. 11:10 PM FINDINGS: Status post placement of left chest tube. Almost complete removal of the previously seen left pleural fluid. No pneumothorax. Persistent dense right lung base due to the large right pleural effusion unchanged since prior studies. XR/XR chest 1V IMPRESSION: 1. Status post placement of left chest tube. Almost complete removal of left pleural fluid. No pneumothorax. 2. Persistent dense right lung base due to large right pleural effusion.
--- NOTE | ~2022-03-13 | XR_ITS ---
EXAMINATION: XR CHEST CLINICAL INFORMATION: Effusion follow-up COMPARISON: 03/17/2022 TECHNIQUE: 2 views of the chest were obtained. FINDINGS: Right-sided pigtail catheter remains in place. Cardiac leads overlie the chest. Left basilar pigtail catheter remains in place. Lung volumes are low. Persistent small right pleural effusion with fluid tracking along the minor fissure. This is similar to prior. No significant left effusion noted. No pneumothorax. No new consolidation. The cardiomediastinal silhouette is within normal limits. XR/XR chest 2V IMPRESSION: Similar appearance to prior. Small right pleural effusion with fluid tracking along the minor fissure. No significant left effusion noted.
--- NOTE | ~2022-03-13 | XR_ITS ---
EXAMINATION: XR CHEST CLINICAL INFORMATION: Chest tube placement. COMPARISON: Chest radiograph 03/13/2022. TECHNIQUE: Frontal view of the chest was obtained. FINDINGS: Stable positioning of the left lower chest pigtail catheter with trace amount of left-sided pleural fluid. Interval placement of a right lower chest pigtail catheter with significant decreased size of a now small right-sided pleural effusion. Bibasilar streaky opacities, favored to represent compressive atelectasis. No pneumothorax. Normal appearance of the cardiomediastinal silhouette. No acute osseous abnormalities. The visualized upper abdomen is within normal limits. XR/XR chest 1V IMPRESSION: 1. Interval placement of a right lower chest pigtail catheter with significant decreased size of a now small right-sided pleural effusion. 2. Stable left pigtail catheter with trace amount of left-sided pleural fluid.
--- NOTE | 2022-03-13 16:14 | ED.GENADULT ---
HPI - General Adult General Chief complaint: Dyspnea <SKYE Gonzales Last Filed: 03/13/22 16:27> Stated complaint: Fluid in Lungs <SKYE Gonzales Last Filed: 03/13/22 16:27> Time Seen by Provider: 03/13/22 17:19 <SKYE Gonzales Last Filed: 03/13/22 16:27> Source: patient <SKYE Sesay Last Filed: 03/14/22 01:31> Mode of arrival: ambulatory <SKYE Sesay Last Filed: 03/14/22 01:31> Limitations: no limitations <SKYE Sesay Last Filed: 03/14/22 01:31> History of Present Illness HPI narrative: This is a 56-year-old female past medical history significant for anxiety, ovarian mass, malignant ascites, malignant pleural effusions was discharged from this hospital yesterday presenting with complaints of worsening abdominal distension, shortness of breath, fatigue, malaise. Patient tells me she is unable to ambulate without getting winded. She also tells me she has awful blisters on her lower extremities. Patient tells me she was discharged and was supposed to have VNA at home however they never showed up. Patient denies chest pain, fevers, chills, nausea, vomiting, abdominal pain, headache, vision changes in dizziness. <SKYE Sesay Last Filed: 03/14/22 01:31> Related Data Home medications: Previous Rx's Medication Instructions Recorded melatonin 3 mg tablet 6 mg PO BEDTIME PRN insomnia #28 03/12/22 tabs oxycodone 5 mg tablet 5 mg PO Q4H PRN pain #18 tabs 03/12/22 trazodone 50 mg tablet 50 mg PO BEDTIME #30 tabs 03/12/22 <SKYE Gonzales Last Filed: 03/13/22 16:27> Allergies/adverse reactions: Allergies Allergy/AdvReac Type Severity Reaction Status Date / Time ibuprofen Allergy Unknown Verified 03/04/22 20:47 Penicillins AdvReac Unknown Verified 03/04/22 20:47 <SKYE Gonzales Last Filed: 03/13/22 16:27> Review of Systems Review of Systems: Constitutional : No Weight loss, No Fever, No Chills, + Fatigue, + Malaise ENT/Mouth : No sore throat, No Rhinorrhea Eyes: No Eye Pain, No Swelling, No Redness Cardiovascular : No Chest Pain, + SOB, + Dyspnea on Exertion, + Orthopnea, + Edema, No Palpitations Respiratory : No Cough, No Sputum, No Wheezing Gastrointestinal : No Nausea, No Vomiting, No Diarrhea, No Constipation, No abdominal Pain, No Hematochezia, No Melena Genitourinary : No Dysuria, No Urinary Frequency, No Hematuria, Musculoskeletal : No joint pain, No Myalgias, No Joint Swelling Skin : No Skin Lesions, No rash, + blisters Neuro : + Weakness, No Numbness, No Dizziness, No Headache Psych : No Anxiety/Panic, No Depression All other systems reviewed and are negative <SKYE Sesay - Last Filed: 03/14/22 01:31> Yes all other systems are reviewed and are negative <SKYE Sesay - Last Filed: 03/14/22 01:31> [facility] Past Medical History Attestation statement: The following information was validated with the patient. <SKYE Sesay - Last Filed: 03/14/22 01:31> Source: old records reviewed and nursing notes reviewed <SKYE Sesay - Last Filed: 03/14/22 01:31> Medical History: Medical History Abdominal ascites Anxiety Anxiety <SKYE Gonzales - Last Filed: 03/13/22 16:27> Surgical History: Surgical History No pertinent past surgical history <SKYE Gonzales - Last Filed: 03/13/22 16:27> Family History Family History: Family History Father History of coronary artery disease <SKYE Gonzales - Last Filed: 03/13/22 16:27> Social History Social History: Social History Household Members: None Housing: House Do you presently have visiting nurse or other home services: No Alcohol intake: never Patient Tobacco Use Status: Never used Tobacco Advance Directives: No Advance Directives Information Provided: Yes service: No Current occupational status: disabled <SKYE Gonzales - Last Filed: 03/13/22 16:27> Physical Exam ED Vital Signs: Vital Signs - 24 hr 03/13/22 16:16 03/13/22 18:19 03/13/22 19:35 Temperature 98.7 F 98.2 F 97.6 F Pulse Rate 106 H 100 102 H Respiratory Rate 28 H 20 Blood Pressure 124/91 H 111/70 116/68 Pulse Oximetry 87 L 97 96 Oxygen Delivery Method Room Air Nasal Cannula Room Air Oxygen Flow Rate 3 03/13/22 20:11 03/13/22 20:34 03/13/22 20:58 Temperature Pulse Rate 105 H 107 H 105 H Respiratory Rate 16 12 18 Blood Pressure 123/85 121/82 119/87 Pulse Oximetry 94 92 93 Oxygen Delivery Method Nasal Cannula Nasal Cannula Nasal Cannula Oxygen Flow Rate 2 2 4 03/13/22 21:16 03/13/22 22:02 03/13/22 23:15 Temperature Pulse Rate 102 H 107 H 103 H Respiratory Rate 18 18 16 Blood Pressure 111/72 106/60 105/63 Pulse Oximetry 93 98 98 Oxygen Delivery Method Nasal Cannula Nasal Cannula Nasal Cannula Oxygen Flow Rate 4 03/13/22 23:56 03/14/22 00:16 03/14/22 00:42 Temperature Pulse Rate 95 104 H 108 H Respiratory Rate 18 16 14 Blood Pressure 106/61 96/61 89/57 L Pulse Oximetry 95 94 95 Oxygen Delivery Method Oxygen Flow Rate 03/14/22 01:01 03/14/22 01:14 Temperature Pulse Rate 109 H 113 H Respiratory Rate 14 16 Blood Pressure 95/58 L 102/66 Pulse Oximetry 95 94 Oxygen Delivery Method Nasal Cannula Oxygen Flow Rate BMI result Body Mass Index 25.0 <SKYE Gonzales - Last Filed: 03/13/22 16:27> Vital Signs - 24 hr 03/13/22 16:16 03/13/22 18:19 03/13/22 19:35 Temperature 98.7 F 98.2 F 97.6 F Pulse Rate 106 H 100 102 H Respiratory Rate 28 H 20 Blood Pressure 124/91 H 111/70 116/68 Pulse Oximetry 87 L 97 96 Oxygen Delivery Method Room Air Nasal Cannula Room Air Oxygen Flow Rate 3 03/13/22 20:11 03/13/22 20:34 03/13/22 20:58 Temperature Pulse Rate 105 H 107 H 105 H Respiratory Rate 16 12 18 Blood Pressure 123/85 121/82 119/87 Pulse Oximetry 94 92 93 Oxygen Delivery Method Nasal Cannula Nasal Cannula Nasal Cannula Oxygen Flow Rate 2 2 4 03/13/22 21:16 03/13/22 22:02 03/13/22 23:15 Temperature Pulse Rate 102 H 107 H 103 H Respiratory Rate 18 18 16 Blood Pressure 111/72 106/60 105/63 Pulse Oximetry 93 98 98 Oxygen Delivery Method Nasal Cannula Nasal Cannula Nasal Cannula Oxygen Flow Rate 4 03/13/22 23:56 03/14/22 00:16 03/14/22 00:42 Temperature Pulse Rate 95 104 H 108 H Respiratory Rate 18 16 14 Blood Pressure 106/61 96/61 89/57 L Pulse Oximetry 95 94 95 Oxygen Delivery Method Oxygen Flow Rate 03/14/22 01:01 03/14/22 01:14 Temperature Pulse Rate 109 H 113 H Respiratory Rate 14 16 Blood Pressure 95/58 L 102/66 Pulse Oximetry 95 94 Oxygen Delivery Method Nasal Cannula Oxygen Flow Rate BMI result Body Mass Index 25.0 Vital signs significant for hypoxia, tachycardia and tachypnea. <SKYE Sesay - Last Filed: 03/14/22 01:31> Vital Signs - 24 hr 03/13/22 16:16 03/13/22 18:19 03/13/22 19:35 Temperature 98.7 F 98.2 F 97.6 F Pulse Rate 106 H 100 102 H Respiratory Rate 28 H 20 Blood Pressure 124/91 H 111/70 116/68 Pulse Oximetry 87 L 97 96 Oxygen Delivery Method Room Air Nasal Cannula Room Air Oxygen Flow Rate 3 03/13/22 20:11 03/13/22 20:34 03/13/22 20:58 Temperature Pulse Rate 105 H 107 H 105 H Respiratory Rate 16 12 18 Blood Pressure 123/85 121/82 119/87 Pulse Oximetry 94 92 93 Oxygen Delivery Method Nasal Cannula Nasal Cannula Nasal Cannula Oxygen Flow Rate 2 2 4 03/13/22 21:16 03/13/22 22:02 03/13/22 23:15 Temperature Pulse Rate 102 H 107 H 103 H Respiratory Rate 18 18 16 Blood Pressure 111/72 106/60 105/63 Pulse Oximetry 93 98 98 Oxygen Delivery Method Nasal Cannula Nasal Cannula Nasal Cannula Oxygen Flow Rate 4 03/13/22 23:56 03/14/22 00:16 03/14/22 00:42 Temperature Pulse Rate 95 104 H 108 H Respiratory Rate 18 16 14 Blood Pressure 106/61 96/61 89/57 L Pulse Oximetry 95 94 95 Oxygen Delivery Method Oxygen Flow Rate 03/14/22 01:01 03/14/22 01:14 Temperature Pulse Rate 109 H 113 H Respiratory Rate 14 16 Blood Pressure 95/58 L 102/66 Pulse Oximetry 95 94 Oxygen Delivery Method Nasal Cannula Oxygen Flow Rate BMI result Body Mass Index 25.0 <Tonya Mckeon MD - Last Filed: 03/14/22 00:05> Appearance: Alert.? Oriented X3.? No acute distress.? Head: Normocephalic, atraumatic, no step-offs or deformities Eyes: Pupils equal, round and reactive to light.? ENT: Pharynx normal.? Neck: Normal inspection.? Neck supple.? CVS: Normal heart rate and rhythm.? Pulses normal.? Respiratory: No respiratory distress.? Breath sounds diminished b/l and rales noted.? Abdomen: Firm, distended, positive fluid wave, normoactive bowel sounds. Ascites noted. Skin: Skin warm and dry.? Normal skin color.? Normal skin turgor.? Extremities: 3+ non pitting edema to b/l lower extremities.? No calf ttp, negative kayleen b/l. Global weakness + draining blisters to b/l dorsal aspect of feet (images below) Back: No midline tenderness, no C-spine tenderness, full range of motion, no CVA tenderness bilaterally Neuro: Oriented X 3.? No motor deficit.? No sensory deficit. CN 2-12 intact <SKYE Sesay - Last Filed: 03/14/22 01:31> Course Course Course Narrative: RME--56-year-old female with a past medical history of anxiety, ovarian mass, malignant ascites, malignant pleural effusions, discharge from hospital admission yesterday presenting to the ED complaining of SOB, fatigue, and abdominal distension. Denies fever, abdominal pain. Patient is satting 87% on room air > increased in 92% on 2 L NC, appears short of breath, abdomen distended/firm, nontender. Concern for pleural effusion/peritoneal fluid reaccumulation. Low suspicion for severe sepsis at this time EKG, labs, UA, CXR, paracentesis ultrasound, COVID-19/influenza/RSV testing ordered. Charge nurse aware <SKYE Gonzales - Last Filed: 03/13/22 16:27> Reevaluation(s) Reevaluation #1: CBC a slight leukocytosis, chemistry with slightly elevated potassium 5.5 will give Lokelma 10. No lactic acidosis therefore low suspicion for infection. Troponin negative, BNP normal. UA pending. Chest x-ray with pleural effusions plan is to put in a chest tube as discussed with my attending. CT of chest with large right greater than left effusions which are his slightly less in size and previous exam but still significant. Areas of compressive lung collapse are again noted. No large PE however exam limited secondary to motion. In the abdomen and pelvis again ascites less than before. However patient asymptomatic. My attending Dr. Mckeon recommends bilateral wanes catheters. <SKYE Sesay - Last Filed: 03/14/22 01:31> Time: 21:40 <SKYE Sesay - Last Filed: 03/14/22 01:31> Reevaluation #2: This [facility] assisted with bilateral chest tubes with . No complications. Please see procedure note. Large amount of fluid drained will obtain repeat CBC as well as type and screen. Will give patient 5 mg of midodrine to help with pressure. Patient to be admitted to hospital. <SKYE Sesay - Last Filed: 03/14/22 01:31> Time: 01:29 <SKYE Sesay - Last Filed: 03/14/22 01:31> Medications Administered Generic Name Dose Route Start Last Admin Trade Name Freq PRN Reason Stop Dose Admin Sodium Chloride 3 ml 03/14/22 00:00 03/14/22 01:14 0.9 % Sodium Chloride Flush 3 Ml Syringe IVFLUSH Not Given QSHIFT HOWARD Discontinued Medications Generic Name Dose Route Start Last Admin Trade Name Freq PRN Reason Stop Dose Admin Fentanyl 50 mcg 03/13/22 17:40 03/13/22 17:47 Fentanyl Citrate/Pf 100 Mcg/2 Ml Vial IVPUSH 03/13/22 17:41 50 mcg ONCE ONE Administration Protocol Fentanyl 50 mcg 03/13/22 19:35 03/13/22 19:57 Fentanyl Citrate/Pf 100 Mcg/2 Ml Vial IVPUSH 03/13/22 19:36 50 mcg ONCE ONE Administration Protocol Fentanyl 50 mcg 03/13/22 23:08 03/13/22 23:12 Fentanyl Citrate/Pf 100 Mcg/2 Ml Vial IVPUSH 03/13/22 23:09 50 mcg ONCE ONE Administration Protocol Iohexol 100 ml 03/13/22 19:28 03/13/22 19:28 Iohexol 350 Mg/Ml 100 Ml Infus..Btl IV 03/13/22 19:29 85 ml ONCE ONE Administration Lidocaine HCl 5 ml 03/13/22 21:54 03/14/22 00:47 Lidocaine Hcl 2 % Mpf 5 Ml Vial SUBCUT 03/13/22 21:55 5 ml ONCE ONE Administration Lidocaine HCl 20 ml 03/13/22 21:54 03/14/22 00:46 Lidocaine Hcl 1 % 20 Ml Vial SUBCUT 03/13/22 21:55 Not Given ONCE ONE Lorazepam 1 mg 03/13/22 17:40 03/13/22 17:46 Lorazepam 2 Mg/Ml Vial IVPUSH 03/13/22 17:41 1 mg STAT STA Administration Lorazepam 0.5 mg 03/13/22 19:35 03/13/22 20:10 Lorazepam 0.5 Mg Tablet PO 03/13/22 19:36 0.5 mg ONCE ONE Administration Ondansetron HCl 4 mg 03/13/22 23:57 03/14/22 00:00 Ondansetron Hcl 4 Mg/2 Ml Vial IVPUSH 03/13/22 23:58 4 mg ONCE ONE Administration <SKYE Gonzales - Last Filed: 03/13/22 16:27> Medications Administered Generic Name Dose Route Start Last Admin Trade Name Hernando PRN Reason Stop Dose Admin Sodium Chloride 3 ml 03/14/22 00:00 03/14/22 01:14 0.9 % Sodium Chloride Flush 3 Ml Syringe IVFLUSH Not Given QSHIFT HOWARD Discontinued Medications Generic Name Dose Route Start Last Admin Trade Name Hernando PRN Reason Stop Dose Admin Fentanyl 50 mcg 03/13/22 17:40 03/13/22 17:47 Fentanyl Citrate/Pf 100 Mcg/2 Ml Vial IVPUSH 03/13/22 17:41 50 mcg ONCE ONE Administration Protocol Fentanyl 50 mcg 03/13/22 19:35 03/13/22 19:57 Fentanyl Citrate/Pf 100 Mcg/2 Ml Vial IVPUSH 03/13/22 19:36 50 mcg ONCE ONE Administration Protocol Fentanyl 50 mcg 03/13/22 23:08 03/13/22 23:12 Fentanyl Citrate/Pf 100 Mcg/2 Ml Vial IVPUSH 03/13/22 23:09 50 mcg ONCE ONE Administration Protocol Iohexol 100 ml 03/13/22 19:28 03/13/22 19:28 Iohexol 350 Mg/Ml 100 Ml Infus..Btl IV 03/13/22 19:29 85 ml ONCE ONE Administration Lidocaine HCl 5 ml 03/13/22 21:54 03/14/22 00:47 Lidocaine Hcl 2 % Mpf 5 Ml Vial SUBCUT 03/13/22 21:55 5 ml ONCE ONE Administration Lidocaine HCl 20 ml 03/13/22 21:54 03/14/22 00:46 Lidocaine Hcl 1 % 20 Ml Vial SUBCUT 03/13/22 21:55 Not Given ONCE ONE Lorazepam 1 mg 03/13/22 17:40 03/13/22 17:46 Lorazepam 2 Mg/Ml Vial IVPUSH 03/13/22 17:41 1 mg STAT STA Administration Lorazepam 0.5 mg 03/13/22 19:35 03/13/22 20:10 Lorazepam 0.5 Mg Tablet PO 03/13/22 19:36 0.5 mg ONCE ONE Administration Ondansetron HCl 4 mg 03/13/22 23:57 03/14/22 00:00 Ondansetron Hcl 4 Mg/2 Ml Vial IVPUSH 03/13/22 23:58 4 mg ONCE ONE Administration <SKYE Sesay - Last Filed: 03/14/22 01:31> Medications Administered Generic Name Dose Route Start Last Admin Trade Name Hernando PRN Reason Stop Dose Admin Sodium Chloride 3 ml 03/14/22 00:00 03/14/22 01:14 0.9 % Sodium Chloride Flush 3 Ml Syringe IVFLUSH Not Given QSHIFT HOWARD Discontinued Medications Generic Name Dose Route Start Last Admin Trade Name Hernando PRN Reason Stop Dose Admin Fentanyl 50 mcg 03/13/22 17:40 03/13/22 17:47 Fentanyl Citrate/Pf 100 Mcg/2 Ml Vial IVPUSH 03/13/22 17:41 50 mcg ONCE ONE Administration Protocol Fentanyl 50 mcg 03/13/22 19:35 03/13/22 19:57 Fentanyl Citrate/Pf 100 Mcg/2 Ml Vial IVPUSH 03/13/22 19:36 50 mcg ONCE ONE Administration Protocol Fentanyl 50 mcg 03/13/22 23:08 03/13/22 23:12 Fentanyl Citrate/Pf 100 Mcg/2 Ml Vial IVPUSH 03/13/22 23:09 50 mcg ONCE ONE Administration Protocol Iohexol 100 ml 03/13/22 19:28 03/13/22 19:28 Iohexol 350 Mg/Ml 100 Ml Infus..Btl IV 03/13/22 19:29 85 ml ONCE ONE Administration Lidocaine HCl 5 ml 03/13/22 21:54 03/14/22 00:47 Lidocaine Hcl 2 % Mpf 5 Ml Vial SUBCUT 03/13/22 21:55 5 ml ONCE ONE Administration Lidocaine HCl 20 ml 03/13/22 21:54 03/14/22 00:46 Lidocaine Hcl 1 % 20 Ml Vial SUBCUT 03/13/22 21:55 Not Given ONCE ONE Lorazepam 1 mg 03/13/22 17:40 03/13/22 17:46 Lorazepam 2 Mg/Ml Vial IVPUSH 03/13/22 17:41 1 mg STAT STA Administration Lorazepam 0.5 mg 03/13/22 19:35 03/13/22 20:10 Lorazepam 0.5 Mg Tablet PO 03/13/22 19:36 0.5 mg ONCE ONE Administration Ondansetron HCl 4 mg 03/13/22 23:57 03/14/22 00:00 Ondansetron Hcl 4 Mg/2 Ml Vial IVPUSH 03/13/22 23:58 4 mg ONCE ONE Administration <Tonya Mckeon MD - Last Filed: 03/14/22 00:05> Procedures Chest Tube Chest Tube 1: Chest Tube Location: left <Tonya Mckeon MD - Last Filed: 03/14/22 00:05> Size of Tube (cm): 14 <Tonya Mckeon MD - Last Filed: 03/14/22 00:05> Chest Tube Prep: Yes betadine prep and sterile drapes applied <Tonya Mckeon MD - Last Filed: 03/14/22 00:05> Local Anesthetic: lidocaine 1% <Tonya Mckeon MD - Last Filed: 03/14/22 00:05> Amount of anesthesia used (mL): 3 <Tonya Mckeon MD - Last Filed: 03/14/22 00:05> Incision Made With: #11 blade <Tonya Mckeon MD - Last Filed: 03/14/22 00:05> Post Procedure: sutured to skin and sterile dressing applied <Tonya Mckeon MD - Last Filed: 03/14/22 00:05> Tube Drainage: blood <Tonya Mckeon MD - Last Filed: 03/14/22 00:05> Amount of initial drainage (mL): 600 <Tonya Mckeon MD - Last Filed: 03/14/22 00:05> Post Procedure CXR?: Yes <Tonya Mckeon MD - Last Filed: 03/14/22 00:05> Patient Tolerated Procedure: Yes <Tonya Mckeon MD - Last Filed: 03/14/22 00:05> Progress: The fluid draining is serosanguineous combination. This is pleural effusion associated with underlying metastatic CA. <Tonya Mckeon MD - Last Filed: 03/14/22 00:05> Chest Tube 2: Chest Tube Location: right <SKYE Sesay - Last Filed: 03/14/22 01:31> Size of Tube (cm): 14 <SKYE Sesay Last Filed: 03/14/22 01:31> Chest Tube Prep: Yes betadine prep and sterile drapes applied <SKYE Sesay Last Filed: 03/14/22 01:31> Local Anesthetic: lidocaine 1% <SKYE Sesay Last Filed: 03/14/22 01:31> Amount of anesthesia used (mL): 3 <SKYE Sesay Last Filed: 03/14/22 01:31> Incision Made With: #11 blade <SKYE Sesay - Last Filed: 03/14/22:31> Post Procedure: sutured to skin and sterile dressing applied <SKYE Sesay - Last Filed: 03/14/22:31> Tube Drainage: blood <SKYE Sesay - Last Filed: 03/14/22 01:31> Amount of initial drainage (mL): 700 <SKYE Sesay - Last Filed: 03/14/22:31> Post Procedure CXR?: Yes <SKYE Sesay - Last Filed: 03/14/22:31> Patient Tolerated Procedure: Yes <SKYE Sesay - Last Filed: 03/14/22:> Progress: The fluid draining is serosanguineous combination. This is pleural effusion associated with underlying metastatic CA. <SKYE Sesay - Last Filed: 03/14/22:31> Medical Decision Making Medical Decision Making [facility] Narrative: 1744 56-year-old female presents with weakness, fatigue, malaise, blistering to bilateral lower extremities, lower extremity swelling, shortness of breath, worsening abdominal distension. Was discharged from this facility yesterday. PE w/ acites, distended abdomen, nontender with normal BS in all 4 quadrants. 3+ non pitting edema to b/l lower extremities.? No calf ttp, negative kayleen b/l. Global weakness + draining blisters to b/l dorsal aspect of feet Likely recurrent malignant pleural effusions and malignant ascites. Also concern for CHF PE which will be ruled out. Unlikely SJS, TEN., SBP Plan labs, imaging. <SKYE Sesay - Last Filed: 03/14/22 01:31> Differential Diagnosis Differential Diagnoses: The differential diagnosis associated with the presentation includes <SKYE Sesay Last Filed: 03/14/22:31> Likely recurrent malignant pleural effusions and malignant ascites. Also concern for CHF PE which will be ruled out. Unlikely SJS, TEN, SBP. <SKYE Sesay Last Filed: 03/14/22 01:31> Lab Data Result Diagrams: : 03/14/22 00:22 03/13/22 17:09 <SKYE Gonzales - Last Filed: 03/13/22 16:27> Labs: Lab Results 03/13/22 03/13/22 03/13/22 Range/Units 17:08 17:09 17:09 WBC 12.6 H (4.8-10.8) X10*3/uL RBC 5.83 H (4.20-5.50) X10*6/uL Hgb 13.7 (12.0-16.0) g/dl Hct 43.9 (37.0-47.0) % MCV 75.3 L (80.0-98.0) fL MCH 23.5 L (27.0-33.0) pg MCHC 31.2 (31.0-35.0) g/dl RDW 16.4 H (11.0-16.0) % Plt Count 622 H (160-400) X10*3/uL MPV 9.1 L (9.4-12.3) fL Immature Gran % (Auto) 0.4 (0.0-0.4) % Neut % (Auto) 87.9 H (45-73) % Lymph % (Auto) 4.2 L (20-40) % [place] % (Auto) 6.6 (2-11) % Eos % (Auto) 0.7 (0-4) % Baso % (Auto) 0.2 (0-2) % Lymph # (Auto) 0.5 L (1.2-4.9) X10*3/uL [place] # (Auto) 0.8 (0.1-1.2) X10*3/uL Eos # (Auto) 0.1 (0.0-0.4) X10*3/uL Baso # (Auto) 0.0 (0.0-0.2) X10*3/uL Abs Immat Gran (auto) 0.05 H (0.00-0.03) X10*3/uL Absolute Neuts (auto) 11.1 H (2.0-8.3) x10*3/uL Absolute Nucleated RBC 0.000 (0.0-0.012) X10*3/uL Nucleated RBC % (auto) 0.0 (0.0-0.2) /100WBC PT (10.0-13.1) SEC INR (0.9-1.1) D-Dimer High Sensitivty NG/ML Sodium 134 L (135-145) mmol/L Potassium 5.5 H (3.3-5.1) mmol/L Chloride 99 (96-108) mmol/L Carbon Dioxide 24 (22-29) mmol/L Anion Gap 17 (12-20) BUN 17 H (9-16) mg/dL Creatinine 0.72 (0.5-1.4) mg/dL Estim Creat Clear Calc 80.7 Estimated GFR > 60 Random Glucose 98 (60-115) mg/dL Lactic Acid (0.5-2.0) mmol/L Calcium 9.4 (8.4-10.2) mg/dL Magnesium 2.3 (1.6-2.6) mg/dL Total Bilirubin 0.3 (0.0-1.0) mg/dL Direct Bilirubin < 0.2 (0.0-0.5) mg/dL AST 40 H (5-31) U/L ALT 24 (0-31) U/L Alkaline Phosphatase 97 (39-117) U/L Troponin I High Sens (<3.5-17.0) ng/L B-Natriuretic Peptide (<100) pg/mL Total Protein 6.2 L (6.5-8.0) g/dL Albumin 3.1 L (3.5-5.0) g/dL Lipase 142 H (8-78) U/L Influenza Type A (PCR) NEGATIVE (Negative) Influenza Type B (PCR) NEGATIVE (Negative) RSV RNA Qual (PCR) NEGATIVE (Negative) SARS-CoV-2 RNA (RT-PCR) NEGATIVE (Negative) 03/13/22 03/13/22 03/13/22 Range/Units 17:09 17:09 17:45 WBC (4.8-10.8) X10*3/uL RBC (4.20-5.50) X10*6/uL Hgb (12.0-16.0) g/dl Hct (37.0-47.0) % MCV (80.0-98.0) fL MCH (27.0-33.0) pg MCHC (31.0-35.0) g/dl RDW (11.0-16.0) % Plt Count (160-400) X10*3/uL MPV (9.4-12.3) fL Immature Gran % (Auto) (0.0-0.4) % Neut % (Auto) (45-73) % Lymph % (Auto) (20-40) % [place] % (Auto) (2-11) % Eos % (Auto) (0-4) % Baso % (Auto) (0-2) % Lymph # (Auto) (1.2-4.9) X10*3/uL [place] # (Auto) (0.1-1.2) X10*3/uL Eos # (Auto) (0.0-0.4) X10*3/uL Baso # (Auto) (0.0-0.2) X10*3/uL Abs Immat Gran (auto) (0.00-0.03) X10*3/uL Absolute Neuts (auto) (2.0-8.3) x10*3/uL Absolute Nucleated RBC (0.0-0.012) X10*3/uL Nucleated RBC % (auto) (0.0-0.2) /100WBC PT 12.3 (10.0-13.1) SEC INR 1.1 (0.9-1.1) D-Dimer High Sensitivty NG/ML Sodium (135-145) mmol/L Potassium (3.3-5.1) mmol/L Chloride (96-108) mmol/L Carbon Dioxide (22-29) mmol/L Anion Gap (12-20) BUN (9-16) mg/dL Creatinine (0.5-1.4) mg/dL Estim Creat Clear Calc Estimated GFR Random Glucose (60-115) mg/dL Lactic Acid (0.5-2.0) mmol/L Calcium (8.4-10.2) mg/dL Magnesium (1.6-2.6) mg/dL Total Bilirubin (0.0-1.0) mg/dL Direct Bilirubin (0.0-0.5) mg/dL AST (5-31) U/L ALT (0-31) U/L Alkaline Phosphatase (39-117) U/L Troponin I High Sens 6.9 (<3.5-17.0) ng/L B-Natriuretic Peptide 23 (<100) pg/mL Total Protein (6.5-8.0) g/dL Albumin (3.5-5.0) g/dL Lipase (8-78) U/L Influenza Type A (PCR) (Negative) Influenza Type B (PCR) (Negative) RSV RNA Qual (PCR) (Negative) SARS-CoV-2 RNA (RT-PCR) (Negative) 03/13/22 03/13/22 03/14/22 Range/Units 17:45 20:18 00:22 WBC (4.8-10.8) X10*3/uL RBC (4.20-5.50) X10*6/uL Hgb 14.2 (12.0-16.0) g/dl Hct 46.7 (37.0-47.0) % MCV (80.0-98.0) fL MCH (27.0-33.0) pg MCHC (31.0-35.0) g/dl RDW (11.0-16.0) % Plt Count (160-400) X10*3/uL MPV (9.4-12.3) fL Immature Gran % (Auto) (0.0-0.4) % Neut % (Auto) (45-73) % Lymph % (Auto) (20-40) % [place] % (Auto) (2-11) % Eos % (Auto) (0-4) % Baso % (Auto) (0-2) % Lymph # (Auto) (1.2-4.9) X10*3/uL [place] # (Auto) (0.1-1.2) X10*3/uL Eos # (Auto) (0.0-0.4) X10*3/uL Baso # (Auto) (0.0-0.2) X10*3/uL Abs Immat Gran (auto) (0.00-0.03) X10*3/uL Absolute Neuts (auto) (2.0-8.3) x10*3/uL Absolute Nucleated RBC (0.0-0.012) X10*3/uL Nucleated RBC % (auto) (0.0-0.2) /100WBC PT (10.0-13.1) SEC INR (0.9-1.1) D-Dimer High Sensitivty 729 NG/ML Sodium (135-145) mmol/L Potassium (3.3-5.1) mmol/L Chloride (96-108) mmol/L Carbon Dioxide (22-29) mmol/L Anion Gap (12-20) BUN (9-16) mg/dL Creatinine (0.5-1.4) mg/dL Estim Creat Clear Calc Estimated GFR Random Glucose (60-115) mg/dL Lactic Acid 1.1 (0.5-2.0) mmol/L Calcium (8.4-10.2) mg/dL Magnesium (1.6-2.6) mg/dL Total Bilirubin (0.0-1.0) mg/dL Direct Bilirubin (0.0-0.5) mg/dL AST (5-31) U/L ALT (0-31) U/L Alkaline Phosphatase (39-117) U/L Troponin I High Sens (<3.5-17.0) ng/L B-Natriuretic Peptide (<100) pg/mL Total Protein (6.5-8.0) g/dL Albumin (3.5-5.0) g/dL Lipase (8-78) U/L Influenza Type A (PCR) (Negative) Influenza Type B (PCR) (Negative) RSV RNA Qual (PCR) (Negative) SARS-CoV-2 RNA (RT-PCR) (Negative) <SKYE Gonzales - Last Filed: 03/13/22 16:27> Lab Results 03/13/22 03/13/22 03/13/22 Range/Units 17:08 17:09 17:09 WBC 12.6 H (4.8-10.8) X10*3/uL RBC 5.83 H (4.20-5.50) X10*6/uL Hgb 13.7 (12.0-16.0) g/dl Hct 43.9 (37.0-47.0) % MCV 75.3 L (80.0-98.0) fL MCH 23.5 L (27.0-33.0) pg MCHC 31.2 (31.0-35.0) g/dl RDW 16.4 H (11.0-16.0) % Plt Count 622 H (160-400) X10*3/uL MPV 9.1 L (9.4-12.3) fL Immature Gran % (Auto) 0.4 (0.0-0.4) % Neut % (Auto) 87.9 H (45-73) % Lymph % (Auto) 4.2 L (20-40) % [place] % (Auto) 6.6 (2-11) % Eos % (Auto) 0.7 (0-4) % Baso % (Auto) 0.2 (0-2) % Lymph # (Auto) 0.5 L (1.2-4.9) X10*3/uL [place] # (Auto) 0.8 (0.1-1.2) X10*3/uL Eos # (Auto) 0.1 (0.0-0.4) X10*3/uL Baso # (Auto) 0.0 (0.0-0.2) X10*3/uL Abs Immat Gran (auto) 0.05 H (0.00-0.03) X10*3/uL Absolute Neuts (auto) 11.1 H (2.0-8.3) x10*3/uL Absolute Nucleated RBC 0.000 (0.0-0.012) X10*3/uL Nucleated RBC % (auto) 0.0 (0.0-0.2) /100WBC PT (10.0-13.1) SEC INR (0.9-1.1) D-Dimer High Sensitivty NG/ML Sodium 134 L (135-145) mmol/L Potassium 5.5 H (3.3-5.1) mmol/L Chloride 99 (96-108) mmol/L Carbon Dioxide 24 (22-29) mmol/L Anion Gap 17 (12-20) BUN 17 H (9-16) mg/dL Creatinine 0.72 (0.5-1.4) mg/dL Estim Creat Clear Calc 80.7 Estimated GFR > 60 Random Glucose 98 (60-115) mg/dL Lactic Acid (0.5-2.0) mmol/L Calcium 9.4 (8.4-10.2) mg/dL Magnesium 2.3 (1.6-2.6) mg/dL Total Bilirubin 0.3 (0.0-1.0) mg/dL Direct Bilirubin < 0.2 (0.0-0.5) mg/dL AST 40 H (5-31) U/L ALT 24 (0-31) U/L Alkaline Phosphatase 97 (39-117) U/L Troponin I High Sens (<3.5-17.0) ng/L B-Natriuretic Peptide (<100) pg/mL Total Protein 6.2 L (6.5-8.0) g/dL Albumin 3.1 L (3.5-5.0) g/dL Lipase 142 H (8-78) U/L Influenza Type A (PCR) NEGATIVE (Negative) Influenza Type B (PCR) NEGATIVE (Negative) RSV RNA Qual (PCR) NEGATIVE (Negative) SARS-CoV-2 RNA (RT-PCR) NEGATIVE (Negative) 03/13/22 03/13/22 03/13/22 Range/Units 17:09 17:09 17:45 WBC (4.8-10.8) X10*3/uL RBC (4.20-5.50) X10*6/uL Hgb (12.0-16.0) g/dl Hct (37.0-47.0) % MCV (80.0-98.0) fL MCH (27.0-33.0) pg MCHC (31.0-35.0) g/dl RDW (11.0-16.0) % Plt Count (160-400) X10*3/uL MPV (9.4-12.3) fL Immature Gran % (Auto) (0.0-0.4) % Neut % (Auto) (45-73) % Lymph % (Auto) (20-40) % [place] % (Auto) (2-11) % Eos % (Auto) (0-4) % Baso % (Auto) (0-2) % Lymph # (Auto) (1.2-4.9) X10*3/uL [place] # (Auto) (0.1-1.2) X10*3/uL Eos # (Auto) (0.0-0.4) X10*3/uL Baso # (Auto) (0.0-0.2) X10*3/uL Abs Immat Gran (auto) (0.00-0.03) X10*3/uL Absolute Neuts (auto) (2.0-8.3) x10*3/uL Absolute Nucleated RBC (0.0-0.012) X10*3/uL Nucleated RBC % (auto) (0.0-0.2) /100WBC PT 12.3 (10.0-13.1) SEC INR 1.1 (0.9-1.1) D-Dimer High Sensitivty NG/ML Sodium (135-145) mmol/L Potassium (3.3-5.1) mmol/L Chloride (96-108) mmol/L Carbon Dioxide (22-29) mmol/L Anion Gap (12-20) BUN (9-16) mg/dL Creatinine (0.5-1.4) mg/dL Estim Creat Clear Calc Estimated GFR Random Glucose (60-115) mg/dL Lactic Acid (0.5-2.0) mmol/L Calcium (8.4-10.2) mg/dL Magnesium (1.6-2.6) mg/dL Total Bilirubin (0.0-1.0) mg/dL Direct Bilirubin (0.0-0.5) mg/dL AST (5-31) U/L ALT (0-31) U/L Alkaline Phosphatase (39-117) U/L Troponin I High Sens 6.9 (<3.5-17.0) ng/L B-Natriuretic Peptide 23 (<100) pg/mL Total Protein (6.5-8.0) g/dL Albumin (3.5-5.0) g/dL Lipase (8-78) U/L Influenza Type A (PCR) (Negative) Influenza Type B (PCR) (Negative) RSV RNA Qual (PCR) (Negative) SARS-CoV-2 RNA (RT-PCR) (Negative) 03/13/22 03/13/22 03/14/22 Range/Units 17:45 20:18 00:22 WBC (4.8-10.8) X10*3/uL RBC (4.20-5.50) X10*6/uL Hgb 14.2 (12.0-16.0) g/dl Hct 46.7 (37.0-47.0) % MCV (80.0-98.0) fL MCH (27.0-33.0) pg MCHC (31.0-35.0) g/dl RDW (11.0-16.0) % Plt Count (160-400) X10*3/uL MPV (9.4-12.3) fL Immature Gran % (Auto) (0.0-0.4) % Neut % (Auto) (45-73) % Lymph % (Auto) (20-40) % [place] % (Auto) (2-11) % Eos % (Auto) (0-4) % Baso % (Auto) (0-2) % Lymph # (Auto) (1.2-4.9) X10*3/uL [place] # (Auto) (0.1-1.2) X10*3/uL Eos # (Auto) (0.0-0.4) X10*3/uL Baso # (Auto) (0.0-0.2) X10*3/uL Abs Immat Gran (auto) (0.00-0.03) X10*3/uL Absolute Neuts (auto) (2.0-8.3) x10*3/uL Absolute Nucleated RBC (0.0-0.012) X10*3/uL Nucleated RBC % (auto) (0.0-0.2) /100WBC PT (10.0-13.1) SEC INR (0.9-1.1) D-Dimer High Sensitivty 729 NG/ML Sodium (135-145) mmol/L Potassium (3.3-5.1) mmol/L Chloride (96-108) mmol/L Carbon Dioxide (22-29) mmol/L Anion Gap (12-20) BUN (9-16) mg/dL Creatinine (0.5-1.4) mg/dL Estim Creat Clear Calc Estimated GFR Random Glucose (60-115) mg/dL Lactic Acid 1.1 (0.5-2.0) mmol/L Calcium (8.4-10.2) mg/dL Magnesium (1.6-2.6) mg/dL Total Bilirubin (0.0-1.0) mg/dL Direct Bilirubin (0.0-0.5) mg/dL AST (5-31) U/L ALT (0-31) U/L Alkaline Phosphatase (39-117) U/L Troponin I High Sens (<3.5-17.0) ng/L B-Natriuretic Peptide (<100) pg/mL Total Protein (6.5-8.0) g/dL Albumin (3.5-5.0) g/dL Lipase (8-78) U/L Influenza Type A (PCR) (Negative) Influenza Type B (PCR) (Negative) RSV RNA Qual (PCR) (Negative) SARS-CoV-2 RNA (RT-PCR) (Negative) <SKYE Sesay - Last Filed: 03/14/22 01:31> Lab Results 03/13/22 03/13/22 03/13/22 Range/Units 17:08 17:09 17:09 WBC 12.6 H (4.8-10.8) X10*3/uL RBC 5.83 H (4.20-5.50) X10*6/uL Hgb 13.7 (12.0-16.0) g/dl Hct 43.9 (37.0-47.0) % MCV 75.3 L (80.0-98.0) fL MCH 23.5 L (27.0-33.0) pg MCHC 31.2 (31.0-35.0) g/dl RDW 16.4 H (11.0-16.0) % Plt Count 622 H (160-400) X10*3/uL MPV 9.1 L (9.4-12.3) fL Immature Gran % (Auto) 0.4 (0.0-0.4) % Neut % (Auto) 87.9 H (45-73) % Lymph % (Auto) 4.2 L (20-40) % [place] % (Auto) 6.6 (2-11) % Eos % (Auto) 0.7 (0-4) % Baso % (Auto) 0.2 (0-2) % Lymph # (Auto) 0.5 L (1.2-4.9) X10*3/uL [place] # (Auto) 0.8 (0.1-1.2) X10*3/uL Eos # (Auto) 0.1 (0.0-0.4) X10*3/uL Baso # (Auto) 0.0 (0.0-0.2) X10*3/uL Abs Immat Gran (auto) 0.05 H (0.00-0.03) X10*3/uL Absolute Neuts (auto) 11.1 H (2.0-8.3) x10*3/uL Absolute Nucleated RBC 0.000 (0.0-0.012) X10*3/uL Nucleated RBC % (auto) 0.0 (0.0-0.2) /100WBC PT (10.0-13.1) SEC INR (0.9-1.1) D-Dimer High Sensitivty NG/ML Sodium 134 L (135-145) mmol/L Potassium 5.5 H (3.3-5.1) mmol/L Chloride 99 (96-108) mmol/L Carbon Dioxide 24 (22-29) mmol/L Anion Gap 17 (12-20) BUN 17 H (9-16) mg/dL Creatinine 0.72 (0.5-1.4) mg/dL Estim Creat Clear Calc 80.7 Estimated GFR > 60 Random Glucose 98 (60-115) mg/dL Lactic Acid (0.5-2.0) mmol/L Calcium 9.4 (8.4-10.2) mg/dL Magnesium 2.3 (1.6-2.6) mg/dL Total Bilirubin 0.3 (0.0-1.0) mg/dL Direct Bilirubin < 0.2 (0.0-0.5) mg/dL AST 40 H (5-31) U/L ALT 24 (0-31) U/L Alkaline Phosphatase 97 (39-117) U/L Troponin I High Sens (<3.5-17.0) ng/L B-Natriuretic Peptide (<100) pg/mL Total Protein 6.2 L (6.5-8.0) g/dL Albumin 3.1 L (3.5-5.0) g/dL Lipase 142 H (8-78) U/L Influenza Type A (PCR) NEGATIVE (Negative) Influenza Type B (PCR) NEGATIVE (Negative) RSV RNA Qual (PCR) NEGATIVE (Negative) SARS-CoV-2 RNA (RT-PCR) NEGATIVE (Negative) 03/13/22 03/13/22 03/13/22 Range/Units 17:09 17:09 17:45 WBC (4.8-10.8) X10*3/uL RBC (4.20-5.50) X10*6/uL Hgb (12.0-16.0) g/dl Hct (37.0-47.0) % MCV (80.0-98.0) fL MCH (27.0-33.0) pg MCHC (31.0-35.0) g/dl RDW (11.0-16.0) % Plt Count (160-400) X10*3/uL MPV (9.4-12.3) fL Immature Gran % (Auto) (0.0-0.4) % Neut % (Auto) (45-73) % Lymph % (Auto) (20-40) % [place] % (Auto) (2-11) % Eos % (Auto) (0-4) % Baso % (Auto) (0-2) % Lymph # (Auto) (1.2-4.9) X10*3/uL [place] # (Auto) (0.1-1.2) X10*3/uL Eos # (Auto) (0.0-0.4) X10*3/uL Baso # (Auto) (0.0-0.2) X10*3/uL Abs Immat Gran (auto) (0.00-0.03) X10*3/uL Absolute Neuts (auto) (2.0-8.3) x10*3/uL Absolute Nucleated RBC (0.0-0.012) X10*3/uL Nucleated RBC % (auto) (0.0-0.2) /100WBC PT 12.3 (10.0-13.1) SEC INR 1.1 (0.9-1.1) D-Dimer High Sensitivty NG/ML Sodium (135-145) mmol/L Potassium (3.3-5.1) mmol/L Chloride (96-108) mmol/L Carbon Dioxide (22-29) mmol/L Anion Gap (12-20) BUN (9-16) mg/dL Creatinine (0.5-1.4) mg/dL Estim Creat Clear Calc Estimated GFR Random Glucose (60-115) mg/dL Lactic Acid (0.5-2.0) mmol/L Calcium (8.4-10.2) mg/dL Magnesium (1.6-2.6) mg/dL Total Bilirubin (0.0-1.0) mg/dL Direct Bilirubin (0.0-0.5) mg/dL AST (5-31) U/L ALT (0-31) U/L Alkaline Phosphatase (39-117) U/L Troponin I High Sens 6.9 (<3.5-17.0) ng/L B-Natriuretic Peptide 23 (<100) pg/mL Total Protein (6.5-8.0) g/dL Albumin (3.5-5.0) g/dL Lipase (8-78) U/L Influenza Type A (PCR) (Negative) Influenza Type B (PCR) (Negative) RSV RNA Qual (PCR) (Negative) SARS-CoV-2 RNA (RT-PCR) (Negative) 03/13/22 03/13/22 03/14/22 Range/Units 17:45 20:18 00:22 WBC (4.8-10.8) X10*3/uL RBC (4.20-5.50) X10*6/uL Hgb 14.2 (12.0-16.0) g/dl Hct 46.7 (37.0-47.0) % MCV (80.0-98.0) fL MCH (27.0-33.0) pg MCHC (31.0-35.0) g/dl RDW (11.0-16.0) % Plt Count (160-400) X10*3/uL MPV (9.4-12.3) fL Immature Gran % (Auto) (0.0-0.4) % Neut % (Auto) (45-73) % Lymph % (Auto) (20-40) % [place] % (Auto) (2-11) % Eos % (Auto) (0-4) % Baso % (Auto) (0-2) % Lymph # (Auto) (1.2-4.9) X10*3/uL [place] # (Auto) (0.1-1.2) X10*3/uL Eos # (Auto) (0.0-0.4) X10*3/uL Baso # (Auto) (0.0-0.2) X10*3/uL Abs Immat Gran (auto) (0.00-0.03) X10*3/uL Absolute Neuts (auto) (2.0-8.3) x10*3/uL Absolute Nucleated RBC (0.0-0.012) X10*3/uL Nucleated RBC % (auto) (0.0-0.2) /100WBC PT (10.0-13.1) SEC INR (0.9-1.1) D-Dimer High Sensitivty 729 NG/ML Sodium (135-145) mmol/L Potassium (3.3-5.1) mmol/L Chloride (96-108) mmol/L Carbon Dioxide (22-29) mmol/L Anion Gap (12-20) BUN (9-16) mg/dL Creatinine (0.5-1.4) mg/dL Estim Creat Clear Calc Estimated GFR Random Glucose (60-115) mg/dL Lactic Acid 1.1 (0.5-2.0) mmol/L Calcium (8.4-10.2) mg/dL Magnesium (1.6-2.6) mg/dL Total Bilirubin (0.0-1.0) mg/dL Direct Bilirubin (0.0-0.5) mg/dL AST (5-31) U/L ALT (0-31) U/L Alkaline Phosphatase (39-117) U/L Troponin I High Sens (<3.5-17.0) ng/L B-Natriuretic Peptide (<100) pg/mL Total Protein (6.5-8.0) g/dL Albumin (3.5-5.0) g/dL Lipase (8-78) U/L Influenza Type A (PCR) (Negative) Influenza Type B (PCR) (Negative) RSV RNA Qual (PCR) (Negative) SARS-CoV-2 RNA (RT-PCR) (Negative) <Tonya Mckeon MD - Last Filed: 03/14/22 00:05> Critical Care Time Critical Care Time Critical Care Time: Yes <SKYE Sesay - Last Filed: 03/14/22 01:31> Total Critical Care Time: 60 <SKYE Sesay - Last Filed: 03/14/22 01:31> Attestation: I attest to this time spent taking care of the patient, obtaining history, physical, reviewing labs, imaging, speaking to my attending, speaking to specialist. <SKYE Sesay Last Filed: 03/14/22 01:31> Discharge Plan Discharge Clinical Impression: Pleural effusion, Abdominal ascites, Anxiety, Hypoxia <SKYE Gonzales Last Filed: 03/13/22 16:27> Patient Disposition: Admitted As Inpatient <SKYE Gonzales Last Filed: 03/13/22 16:27> Prescriptions: No Action melatonin 3 mg Tablet 6 mg PO BEDTIME PRN (Reason: insomnia) Qty: 28 0RF trazodone 50 mg tablet 50 mg PO BEDTIME Qty: 30 0RF oxycodone 5 mg tablet 5 mg PO Q4H PRN (Reason: pain) Qty: 18 0RF Rx Instructions: Partial Fill upon patient request. <SKYE Gonzales Last Filed: 03/13/22 16:27>
--- NOTE | 2022-03-13 16:17 | ECG_ITS ---
Test Reason : SOB Blood Pressure : / mmHG Vent. Rate : 106 BPM Atrial Rate : 106 BPM P-R Int : 130 ms QRS Dur : 068 ms QT Int : 312 ms P-R-T Axes : 044 017 197 degrees QTc Int : 414 ms Sinus tachycardia Nonspecific ST and T wave abnormality Abnormal ECG When compared with ECG of 04-MAR-2022 21:08, No significant change was found Referred By: Beena Torres Electronically Signed By:FLORENTINO BUSH
[2022-03-13 17:15] LABS: MANUAL DIFF FLAG NO
[2022-03-13 17:27] LABS: Basophils Percent Auto 0.2 % (0-2); Eosinophils Absolute Auto 0.1 X10*3/uL (0.0-0.4); Eosinophils Percent Auto 0.7 % (0-4); Hematocrit 43.9 % (37.0-47.0); Hemoglobin 13.7 g/dl (12.0-16.0); Imm Gran Abs Auto 0.05 X10*3/uL (0.00-0.03); Imm Gran Pct Auto 0.4 % (0.0-0.4); Lymphocytes Absolute Auto 0.5 X10*3/uL (1.2-4.9); Lymphocytes Percent Auto 4.2 % (20-40); Mean Corpuscular HGB Conc 31.2 g/dl (31.0-35.0); Mean Corpuscular Hemoglobin 23.5 pg (27.0-33.0); Mean Corpuscular Volume 75.3 fL (80.0-98.0); Mean Platelet Volume 9.1 fL (9.4-12.3); Monocytes Absolute Auto 0.8 X10*3/uL (0.1-1.2); Monocytes Percent Auto 6.6 % (2-11); Neutrophils Absolute Auto 11.1 x10*3/uL (2.0-8.3); Neutrophils Percent Auto 87.9 % (45-73); Platelet Count 622 X10*3/uL (160-400); Red Blood Count 5.83 X10*6/uL (4.20-5.50); Red Cell Distribution Width 16.4 % (11.0-16.0); White Blood Count 12.6 X10*3/uL (4.8-10.8)
[2022-03-13 17:43] LABS: Alanine Aminotransferase 24 U/L (0-31); Albumin Level 3.1 g/dL (3.5-5.0); Alkaline Phosphatase 97 U/L (39-117); Anion Gap 17 (12-20); Aspartate Amino Transferase 40 U/L (5-31); Bilirubin Direct < 0.2 mg/dL (0.0-0.5); Bilirubin Total 0.3 mg/dL (0.0-1.0); Blood Urea Nitrogen 17 mg/dL (9-16); Calcium 9.4 mg/dL (8.4-10.2); Carbon Dioxide 24 mmol/L (22-29); Chloride 99 mmol/L (96-108); Creatinine Clr Calc Pharmacy 80.7; Estimated Glomerular Filt Rate > 60; Glucose Random 98 mg/dL (60-115); Lipase 142 U/L (8-78); Magnesium 2.3 mg/dL (1.6-2.6); Potassium 5.5 mmol/L (3.3-5.1); Sodium 134 mmol/L (135-145); Total Protein 6.2 g/dL (6.5-8.0)
[2022-03-13 17:45] LABS: B Type Natriuretic Peptide 23 pg/mL (<100)
[2022-03-13] MEDS: LORazepam 2 MG/ML VIAL 1 MG IVPUSH (17:46)
[2022-03-13] MEDS: fentaNYL citrate/PF 100 MCG/2 ML VIAL 50 MCG IVPUSH ×3 (17:47→23:12)
[2022-03-13 17:48] LABS: Troponin-I High Sensitivity 6.9 ng/L (<3.5-17.0)
[2022-03-13 17:57] LABS: Influenza A PCR NEGATIVE (Negative); Influenza B PCR NEGATIVE (Negative); Resp Syncy Virus RNA Qual PCR NEGATIVE (Negative); SARS COV2 PCR INHOUSE NEGATIVE (Negative)
--- NOTE | 2022-03-13 17:58 | PHA.MEDREC ---
Pharmacy Consult ? Medication Reconciliation Pharmacy has completed the medication reconciliation. Patient's family member had all rx bottles. Reports she has not taken the oxycodone because she is afraid of getting addicted to the medication. Elsie Ortega, PharmD
[2022-03-13 18:05] LABS: INTERNATIONAL NORM RATIO 1.1 (0.9-1.1); Prothrombin Time 12.3 SEC (10.0-13.1)
[2022-03-13 18:08] LABS: D Dimer High Sensitivity 729 NG/ML
[2022-03-13] MEDS: iohexoL 350 MG/ML 100 ML INFUS..BTL IV (19:28)
--- NOTE | 2022-03-13 19:50 | PC.NURSE ---
Mid level provider and this RN at bedside, Provider discussing code status with pt and spouse.
[2022-03-13] MEDS: LORazepam 0.5 MG TABLET PO (20:10)
[2022-03-13 20:36] LABS: Lactic Acid 1.1 mmol/L (0.5-2.0)
--- NOTE | 2022-03-13 22:36 | P.HPHOSP_ITS ---
History of Present Illness Date of Service: 03/13/22 Chief Complaint: Shortness of breath This is a 56-year-old female with pertinent history of ovarian mass with malignant ascites and malignant pleural effusion, mood disorder presents to the emergency department for shortness of breath and worsening abdominal distension. Patient states she gets dyspneic with minimal ambulation. Patient was recently admitted and discharged on 03/12 after she was diagnosed with ovarian mass with malignant ascites and malignant pleural effusions. Patient underwent paracentesis and thoracentesis during previous admission. Patient without shortness of breath and was maintaining normal oxygen saturation on room air prior to discharge. Was supposed to follow-up with PCP. Patient was discharged with VNA services but states they never showed up. In the emergency department, patient was found to be hypoxemic and bilateral chest tubes were placed for bilateral pleural effusions. Review of Systems Constitutional: Constitutional: Reports fatigue, Reports lethargy and Reports malaise Cardiovascular: Cardiovascular: Reports dyspnea on exertion Respiratory: Respiratory: Reports dyspnea on exertion Gastrointestinal: Gastrointestinal: Reports bloating Genitourinary: Genitourinary: Reports no additional female genitourinary complaints Endocrine: Endocrine: Reports fatigue [facility] Medical History Abdominal ascites Anxiety Anxiety Family History Father History of coronary artery disease Surgical History No pertinent past surgical history Social History Household Members: None Housing: House Do you presently have visiting nurse or other home services: No Alcohol intake: never Patient Tobacco Use Status: Never used Tobacco Advance Directives: No Advance Directives Information Provided: Yes service: No Current occupational status: disabled Meds Allergies Allergy/AdvReac Type Severity Reaction Status Date / Time ibuprofen Allergy Unknown Verified 03/04/22 20:47 Penicillins AdvReac Unknown Verified 03/04/22 20:47 Physical Exam Vital Signs and Narrative: Vital Signs: Last Vital Signs Temp 97.6 F 03/13/22 19:35 Pulse 107 H 03/13/22 22:02 Resp 18 03/13/22 22:02 BP 106/60 03/13/22 22:02 Pulse Ox 98 03/13/22 22:02 O2 Del Method 03/13/22 22:02 O2 Flow Rate 4 03/13/22 21:16 BMI result Body Mass Index 25.0 Middle-aged female lying in bed in mild distress on nasal cannula Neck supple, no JVD Tachycardic with regular rhythm, S1-S2 heard Decreased breath sounds with crackles Abdomen distended, nontender, no guarding, no rigidity Patient is awake, alert and oriented to self, place, time and person ; no focal motor deficit Psych: Normal mood Bilateral leg with blisters Results Labs CBC and Chem 7: 03/13/22 17:09 03/13/22 17:09 Labs: Laboratory Results - last 24 hr 03/13/22 03/13/22 03/13/22 17:08 17:09 17:09 MCV 75.3 L MCH 23.5 L MCHC 31.2 RDW 16.4 H Plt Count 622 H MPV 9.1 L Immature Gran % (Auto) 0.4 Neut % (Auto) 87.9 H Lymph % (Auto) 4.2 L [place] % (Auto) 6.6 Eos % (Auto) 0.7 Baso % (Auto) 0.2 Lymph # (Auto) 0.5 L [place] # (Auto) 0.8 Eos # (Auto) 0.1 Baso # (Auto) 0.0 Abs Immat Gran (auto) 0.05 H Absolute Neuts (auto) 11.1 H Absolute Nucleated RBC 0.000 Nucleated RBC % (auto) 0.0 PT INR D-Dimer High Sensitivty Anion Gap 17 Estim Creat Clear Calc 80.7 Estimated GFR > 60 Random Glucose 98 Lactic Acid Calcium 9.4 Magnesium 2.3 Total Bilirubin 0.3 Direct Bilirubin < 0.2 AST 40 H ALT 24 Alkaline Phosphatase 97 Troponin I High Sens B-Natriuretic Peptide Total Protein 6.2 L Albumin 3.1 L Lipase 142 H Influenza Type A (PCR) NEGATIVE Influenza Type B (PCR) NEGATIVE RSV RNA Qual (PCR) NEGATIVE SARS-CoV-2 RNA (RT-PCR) NEGATIVE 03/13/22 03/13/22 03/13/22 17:09 17:09 17:45 MCV MCH MCHC RDW Plt Count MPV Immature Gran % (Auto) Neut % (Auto) Lymph % (Auto) [place] % (Auto) Eos % (Auto) Baso % (Auto) Lymph # (Auto) [place] # (Auto) Eos # (Auto) Baso # (Auto) Abs Immat Gran (auto) Absolute Neuts (auto) Absolute Nucleated RBC Nucleated RBC % (auto) PT 12.3 INR 1.1 D-Dimer High Sensitivty Anion Gap Estim Creat Clear Calc Estimated GFR Random Glucose Lactic Acid Calcium Magnesium Total Bilirubin Direct Bilirubin AST ALT Alkaline Phosphatase Troponin I High Sens 6.9 B-Natriuretic Peptide 23 Total Protein Albumin Lipase Influenza Type A (PCR) Influenza Type B (PCR) RSV RNA Qual (PCR) SARS-CoV-2 RNA (RT-PCR) 03/13/22 03/13/22 17:45 20:18 MCV MCH MCHC RDW Plt Count MPV Immature Gran % (Auto) Neut % (Auto) Lymph % (Auto) [place] % (Auto) Eos % (Auto) Baso % (Auto) Lymph # (Auto) [place] # (Auto) Eos # (Auto) Baso # (Auto) Abs Immat Gran (auto) Absolute Neuts (auto) Absolute Nucleated RBC Nucleated RBC % (auto) PT INR D-Dimer High Sensitivty 729 Anion Gap Estim Creat Clear Calc Estimated GFR Random Glucose Lactic Acid 1.1 Calcium Magnesium Total Bilirubin Direct Bilirubin AST ALT Alkaline Phosphatase Troponin I High Sens B-Natriuretic Peptide Total Protein Albumin Lipase Influenza Type A (PCR) Influenza Type B (PCR) RSV RNA Qual (PCR) SARS-CoV-2 RNA (RT-PCR) Imaging Radiologist's Impressions: Impressions Chest X-Ray 03/13/22 18:40 IMPRESSION: 1. Moderate bilateral pleural effusions with underlying compressive atelectasis. 2. Mild increased pulmonary vascularity but no congestion suspected. Abdomen/Pelvis CT 03/13/22 19:36 IMPRESSION: Motion limits evaluation of the chest. There is no central embolism but a peripheral embolism cannot be excluded on this study. Otherwise appearance is similar to previous. Large right greater than left effusions which are slightly less in size than previous exam but still significant. Areas of compressive lung collapse are once again noted In the abdomen pelvis once again ascites is seen slightly less in the upper abdomen but equal or increased in the lower abdomen pelvis and as described soft tissue masses are also present and findings suggesting carcinomatosis. Chest CTA 03/13/22 19:36 IMPRESSION: Motion limits evaluation of the chest. There is no central embolism but a peripheral embolism cannot be excluded on this study. Otherwise appearance is similar to previous. Large right greater than left effusions which are slightly less in size than previous exam but still significant. Areas of compressive lung collapse are once again noted In the abdomen pelvis once again ascites is seen slightly less in the upper abdomen but equal or increased in the lower abdomen pelvis and as described soft tissue masses are also present and findings suggesting carcinomatosis. Assessment and Plan (1) Hypoxia: Status: Acute (2) Pleural effusion: Status: Acute (3) Ascites, malignant: Status: Acute Plan This is a 56-year-old female with pertinent history of ovarian mass with malignant ascites and malignant pleural effusion, mood disorder presents to the emergency department for shortness of breath and worsening abdominal distension. #. Acute hypoxemic respiratory failure secondary to: #. Bilateral malignant pleural effusion -status post bilateral chest tube placement in the ER. Consult Pulm for chest tube management. 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 Ascites of malignancy -previously drained 5.2 L bloody fluid with cytology showing metastatic adenocarcinoma. Repeat paracentesis in a.m. by IR #. Ovarian cancer -peritoneal biopsy and CA 125 pending. Outpatient follow-up with Oncology, Dr Moran established during previous admission #. Mood disorder -psych was consulted during previous admission and patient declined medications for anxiety/depression/PTSD. On trazodone DVT prophylaxis: Hold Lovenox for paracentesis Diet: Regular diet Full code Time Spent With Patient Time: Total time managing care of this patient today ____ minutes. Quality Stroke Does the patient have a stroke diagnosis?: No VTE Prior VTE?: No VTE Risk Level:: Medical - moderate - high VTE Device Contraindication: N/A - Device Ordered VTE Drug Contraindication: Treatment Not Indicated
[2022-03-14] VITALS (14 sets, daily range): BP systolic 89–129; BP diastolic 57–76; PULSE 97–113; RESP 12–20; TEMP 36–36.8; O2SAT 92–99
[2022-03-14] MEDS: ondansetron HCL 4 MG/2 ML VIAL IVPUSH
--- NOTE | 2022-03-14 00:16 | PC.NURSE ---
MD Seaman at bedside, notified of output of chest tube 2000ML from right and 1700ml from left. Pt BP 95/61 MD aware.
[2022-03-14 00:46] LABS: Hematocrit 46.7 % (37.0-47.0); Hemoglobin 14.2 g/dl (12.0-16.0)
[2022-03-14] MEDS: Lidocaine HCl 2 % MPF 5 ML VIAL SUBCUT (00:47)
--- NOTE | 2022-03-14 01:00 | PC.NURSE ---
Per DOCK MANAGER Shelby, suction turned off on both chest tubes.
[2022-03-14] MEDS: Melatonin 3 MG TABLET 6 MG PO (01:47)
[2022-03-14] MEDS: Sodium Zirconium Cyclosilicate 10 GM POWD.PACK PO ×2 (01:49→11:13)
[2022-03-14] MEDS: Midodrine HCl 2.5 MG TABLET 5 MG PO (02:07)
--- NOTE | 2022-03-14 03:05 | PC.NURSE ---
Pt given water per diet order. No other needs expressed.
--- NOTE | 2022-03-14 04:23 | PC.NURSE ---
Pt sleeping, respirations regular.
--- NOTE | 2022-03-14 06:34 | PC.NURSE ---
Report called to 4th floor, spoke with anton YBARRA.
[2022-03-14 08:31] LABS: MANUAL DIFF FLAG NO
[2022-03-14 08:36] LABS: Basophils Percent Auto 0.2 % (0-2); Eosinophils Percent Auto 0.1 % (0-4); Hematocrit 47.1 % (37.0-47.0); Hemoglobin 14.3 g/dl (12.0-16.0); Imm Gran Pct Auto 0.7 % (0.0-0.4); Lymphocytes Absolute Auto 0.6 X10*3/uL (1.2-4.9); Lymphocytes Percent Auto 3.8 % (20-40); Mean Corpuscular HGB Conc 30.4 g/dl (31.0-35.0); Mean Corpuscular Hemoglobin 22.8 pg (27.0-33.0); Mean Platelet Volume 8.9 fL (9.4-12.3); Monocytes Absolute Auto 0.8 X10*3/uL (0.1-1.2); Monocytes Percent Auto 5.6 % (2-11); Neutrophils Absolute Auto 12.9 x10*3/uL (2.0-8.3); Neutrophils Percent Auto 89.6 % (45-73); Platelet Count 618 X10*3/uL (160-400); Red Blood Count 6.28 X10*6/uL (4.20-5.50); Red Cell Distribution Width 17.2 % (11.0-16.0); White Blood Count 14.4 X10*3/uL (4.8-10.8)
[2022-03-14 09:07] LABS: Blood Urea Nitrogen 19 mg/dL (9-16); Calcium 9.4 mg/dL (8.4-10.2); Creatinine Clr Calc Pharmacy 66.7; Estimated Glomerular Filt Rate > 60; Glucose Random 102 mg/dL (60-115)
[2022-03-14] MEDS: 0.9 % Sodium Chloride Flush 3 ML SYRINGE IVFLUSH ×2 (09:16→15:50)
--- NOTE | 2022-03-14 09:16 | HO.PM.IMPN ---
Subjective Subjective Date of Service: 03/14/22 Review of Systems Follow up Malignant effusions Some sob noted laying in bed no pain, nausea or vomiting Physical Exam Vital Signs: Vital Signs: Last Vital Signs Temp 98.3 F 03/14/22 08:00 Pulse 97 03/14/22 08:00 Resp 14 03/14/22 08:00 BP 105/58 L 03/14/22 08:00 Pulse Ox 96 03/14/22 08:00 O2 Del Method 03/14/22 08:00 O2 Flow Rate 4 03/14/22 08:00 BMI result Body Mass Index 25.0 Appearing in no acute distress lung sounds are clear to auscultation heart regular rate rhythm, clear S1, S2 positive bowel sounds, abdomen is soft, nontender neuro patient is alert x3, no focal deficits Pig tail cath to drainage Objective Data Active Medications Acetaminophen (Acetaminophen 325 Mg Tablet) 650 mg PO Q6H PRN PRN Reason: Pain, Mild (Pain Scale 1-3) Melatonin (Melatonin 3 Mg Tablet) 6 mg PO BEDTIME PRN PRN Reason: Insomnia Last Admin: 03/14/22 01:47 Dose: 6 mg Documented By: RENALDO Melatonin (Melatonin 3 Mg Tablet) 6 mg PO BEDTIME PRN PRN Reason: insomnia Ondansetron HCl (Ondansetron Hcl 4 Mg/2 Ml Vial) 4 mg IVPUSH Q8H PRN PRN Reason: Nausea and Vomiting Oxycodone HCl (Oxycodone Hcl Immed Release 5 Mg Tablet) 5 mg PO Q4H PRN PRN Reason: Pain, Severe (Pain Scale 7-10) Sodium Chloride (0.9 % Sodium Chloride Flush 3 Ml Syringe) 3 ml IVFLUSH QSHIFT COUNTS INCLUDE 234 BEDS AT THE [facility] Last Admin: 03/14/22 01:14 Dose: Not Given Documented By: RENALDO Non-Admin Reason: IV Running Trazodone HCl (Trazodone Hcl 50 Mg Tablet) 50 mg PO BEDTIME COUNTS INCLUDE 234 BEDS AT THE [facility] Labs CBC & Chem 7: 03/14/22 08:13 03/14/22 08:13 Labs: Laboratory Results - last 24 hr 03/13/22 03/13/22 03/13/22 17:08 17:09 17:09 MCV 75.3 L MCH 23.5 L MCHC 31.2 RDW 16.4 H Plt Count 622 H MPV 9.1 L Immature Gran % (Auto) 0.4 Neut % (Auto) 87.9 H Lymph % (Auto) 4.2 L [place] % (Auto) 6.6 Eos % (Auto) 0.7 Baso % (Auto) 0.2 Lymph # (Auto) 0.5 L [place] # (Auto) 0.8 Eos # (Auto) 0.1 Baso # (Auto) 0.0 Abs Immat Gran (auto) 0.05 H Absolute Neuts (auto) 11.1 H Absolute Nucleated RBC 0.000 Nucleated RBC % (auto) 0.0 PT INR D-Dimer High Sensitivty Anion Gap 17 Estim Creat Clear Calc 80.7 Estimated GFR > 60 Random Glucose 98 Lactic Acid Calcium 9.4 Magnesium 2.3 Total Bilirubin 0.3 Direct Bilirubin < 0.2 AST 40 H ALT 24 Alkaline Phosphatase 97 Troponin I High Sens B-Natriuretic Peptide Total Protein 6.2 L Albumin 3.1 L Lipase 142 H Influenza Type A (PCR) NEGATIVE Influenza Type B (PCR) NEGATIVE RSV RNA Qual (PCR) NEGATIVE SARS-CoV-2 RNA (RT-PCR) NEGATIVE Blood Type Antibody Screen 03/13/22 03/13/22 03/13/22 17:09 17:09 17:45 MCV MCH MCHC RDW Plt Count MPV Immature Gran % (Auto) Neut % (Auto) Lymph % (Auto) [place] % (Auto) Eos % (Auto) Baso % (Auto) Lymph # (Auto) [place] # (Auto) Eos # (Auto) Baso # (Auto) Abs Immat Gran (auto) Absolute Neuts (auto) Absolute Nucleated RBC Nucleated RBC % (auto) PT 12.3 INR 1.1 D-Dimer High Sensitivty Anion Gap Estim Creat Clear Calc Estimated GFR Random Glucose Lactic Acid Calcium Magnesium Total Bilirubin Direct Bilirubin AST ALT Alkaline Phosphatase Troponin I High Sens 6.9 B-Natriuretic Peptide 23 Total Protein Albumin Lipase Influenza Type A (PCR) Influenza Type B (PCR) RSV RNA Qual (PCR) SARS-CoV-2 RNA (RT-PCR) Blood Type Antibody Screen 03/13/22 03/13/22 03/14/22 17:45 20:18 00:40 MCV MCH MCHC RDW Plt Count MPV Immature Gran % (Auto) Neut % (Auto) Lymph % (Auto) [place] % (Auto) Eos % (Auto) Baso % (Auto) Lymph # (Auto) [place] # (Auto) Eos # (Auto) Baso # (Auto) Abs Immat Gran (auto) Absolute Neuts (auto) Absolute Nucleated RBC Nucleated RBC % (auto) PT INR D-Dimer High Sensitivty 729 Anion Gap Estim Creat Clear Calc Estimated GFR Random Glucose Lactic Acid 1.1 Calcium Magnesium Total Bilirubin Direct Bilirubin AST ALT Alkaline Phosphatase Troponin I High Sens B-Natriuretic Peptide Total Protein Albumin Lipase Influenza Type A (PCR) Influenza Type B (PCR) RSV RNA Qual (PCR) SARS-CoV-2 RNA (RT-PCR) Blood Type B Negative Antibody Screen NEGATIVE 03/14/22 03/14/22 08:13 08:13 MCV 75.0 L MCH 22.8 L MCHC 30.4 L RDW 17.2 H Plt Count 618 H MPV 8.9 L Immature Gran % (Auto) 0.7 H Neut % (Auto) 89.6 H Lymph % (Auto) 3.8 L [place] % (Auto) 5.6 Eos % (Auto) 0.1 Baso % (Auto) 0.2 Lymph # (Auto) 0.6 L [place] # (Auto) 0.8 Eos # (Auto) 0.0 Baso # (Auto) 0.0 Abs Immat Gran (auto) 0.10 H Absolute Neuts (auto) 12.9 H Absolute Nucleated RBC 0.000 Nucleated RBC % (auto) 0.0 PT INR D-Dimer High Sensitivty Anion Gap Estim Creat Clear Calc 66.7 Estimated GFR > 60 Random Glucose 102 Lactic Acid Calcium 9.4 Magnesium Total Bilirubin Direct Bilirubin AST ALT Alkaline Phosphatase Troponin I High Sens B-Natriuretic Peptide Total Protein Albumin Lipase Influenza Type A (PCR) Influenza Type B (PCR) RSV RNA Qual (PCR) SARS-CoV-2 RNA (RT-PCR) Blood Type Antibody Screen Assessment and Plan (1) Abdominal ascites: Status: Acute Plan This is a 56-year-old female with pertinent history of ovarian mass with malignant ascites and malignant pleural effusion, mood disorder presents to the emergency department for shortness of breath and worsening abdominal distension. Acute hypoxemic respiratory failure secondary to bilateral malignant pleural effusion status post bilateral chest tube placement in the ER. Consult Pulm for chest tube management. 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 Repeat paracentesis pending Ovarian cancer peritoneal biopsy and CA 125 pending.? 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 Moran for management moving forward Mood disorder psych was consulted during previous admission and patient declined medications for anxiety/depression/PTSD started on trazodone during previous admission and appears that she had taken in at home DVT prophylaxis Hold Lovenox for paracentesis full code Attending Dr. Cunningham Continue hospitalization for treatment of pleural effusion, abdominal ascites Time Spent With Patient Time: Total time managing care of this patient today ____ minutes. Quality Stroke Does the patient have a stroke diagnosis?: No VTE Prior VTE?: No VTE Risk Level:: Medical - moderate - high VTE Device Contraindication: N/A - Device Ordered VTE Drug Contraindication: Treatment Not Indicated
[2022-03-14 09:23] LABS: Anion Gap 20 (12-20); Carbon Dioxide 21 mmol/L (22-29); Chloride 99 mmol/L (96-108); Sodium 134 mmol/L (135-145)
--- NOTE | 2022-03-14 10:50 | PC.NURSE ---
report received from overnight RN, admission assessment complete by Nazanin YBARRA. drug enforcement administration agent per MAY. Pt has critical potassium of 6.0, hospitalist notified, [facility], lead case manager in place. Pt with bilateral chest tubes, patent and draining. Pt c/o some discomfort at site. Assisted OOB to chair. Call araujo within reach, chair alarm in place, pt encouraged to call for assitance.
[2022-03-14] MEDS: oxyCODONE HCl Immed Release 5 MG TABLET PO (11:23)
--- NOTE | 2022-03-14 12:42 | P.CONPL_ITS ---
History of Present Illness History of Present Illness Consult date: 03/14/22 Chief complaint: Dyspnea Narrative: THis is an in patient pulmonary consultation. This is a 56-year-old female with pertinent history of ovarian mass with malignant ascites and malignant pleural effusion, mood disorder presents to the emergency department for shortness of breath and worsening abdominal distension.? Patient states she gets dyspneic with minimal ambulation.? Patient was recently admitted and discharged on 03/12 after she was diagnosed with ovarian mass with malignant ascites and malignant pleural effusions.? Patient underwent paracentesis and thoracentesis during previous admission.? Patient without shortness of breath and was maintaining normal oxygen saturation on room air prior to discharge.?In the ED she was noted to have large bulateral pleural effusions s/p bilateral pig tail chest tubes. She is on oxygen and feeling better from a respiratory standpoint. Review of Systems Constitutional: Constitutional: Reports fatigue, Reports lethargy and Reports malaise Cardiovascular: Cardiovascular: Reports dyspnea on exertion Respiratory: Respiratory: Reports dyspnea on exertion Gastrointestinal: Gastrointestinal: Reports bloating Genitourinary: Genitourinary: Reports no additional female genitourinary complaints Endocrine: Endocrine: Reports fatigue PMFSH Past Medical History Medical History Abdominal ascites Anxiety Anxiety Family History Family History Father History of coronary artery disease Surgical History Surgical History No pertinent past surgical history Social History Social History Household Members: None Housing: House Do you presently have visiting nurse or other home services: No Alcohol intake: never Patient Tobacco Use Status: Never used Tobacco Smoked in Last 30 Days: No Patient Interested in Nicotine Replacement: No Second Hand Smoke Exposure: No Use of substances other than those prescribed or required for medical reasons: No Currently Displaying Signs/Symptoms of Drug Intoxication Withdrawal: No Any prior treatment program specific to substance use: No Have you been hit, kicked, punched, or otherwise hurt by someone within the past year? If so, by whom?: No Do you feel safe in your current relationship?: Yes Is there a partner from a previous relationship who is making you feel unsafe now?: No Are you made to feel afraid or neglected: No Spiritual Healthcare Practices: Faith Advance Directives: No Advance Directives Information Provided: Yes Do you have thoughts of harming others: Vague Do you have a plan to hurt others: No Plan Recently lost weight without trying: No Eating poorly because of decreased appetite: Yes Nutrition Risks: Anorexia Patient : No : No service: No Current occupational status: disabled Meds Allergies Allergy/AdvReac Type Severity Reaction Status Date / Time ibuprofen Allergy Unknown Verified 03/04/22 20:47 Penicillins AdvReac Unknown Verified 03/04/22 20:47 Active Medications: Current Medications Acetaminophen (Acetaminophen 325 Mg Tablet) 650 mg PO Q6H PRN PRN Reason: Pain, Mild (Pain Scale 1-3) Melatonin (Melatonin 3 Mg Tablet) 6 mg PO BEDTIME PRN PRN Reason: Insomnia Last Admin: 03/14/22 01:47 Dose: 6 mg Melatonin (Melatonin 3 Mg Tablet) 6 mg PO BEDTIME PRN PRN Reason: insomnia Ondansetron HCl (Ondansetron Hcl 4 Mg/2 Ml Vial) 4 mg IVPUSH Q8H PRN PRN Reason: Nausea and Vomiting Oxycodone HCl (Oxycodone Hcl Immed Release 5 Mg Tablet) 5 mg PO Q4H PRN PRN Reason: Pain, Severe (Pain Scale 7-10) Last Admin: 03/14/22 11:23 Dose: 5 mg Sodium Chloride (0.9 % Sodium Chloride Flush 3 Ml Syringe) 3 ml IVFLUSH PSYCHIATRIC Last Admin: 03/14/22 09:16 Dose: 3 ml Trazodone HCl (Trazodone Hcl 50 Mg Tablet) 50 mg PO BEDTIME [facility] Physical Exam Vital Signs: Vital Signs: Last Vital Signs Temp 97.2 F 03/14/22 11:03 Pulse 103 H 03/14/22 11:03 Resp 12 03/14/22 11:03 BP 114/70 03/14/22 11:03 Pulse Ox 92 03/14/22 11:03 O2 Del Method 03/14/22 11:03 O2 Flow Rate 4 03/14/22 11:03 BMI result Body Mass Index 25.0 Appearing in no acute distress lung sounds are clear to auscultation heart regular rate rhythm, clear S1, S2 positive bowel sounds, abdomen is soft, nontender neuro patient is alert x3, no focal deficits Pig tail cath to drainage Results Laboratory Findings CBC and BMP: 03/14/22 08:13 03/14/22 08:13 ABG, PT/INR, D-dimer: PT/INR, D-dimer PT 12.3 SEC (10.0-13.1) 03/13/22 17:45 INR 1.1 (0.9-1.1) 03/13/22 17:45 Abnormal lab findings: Abnormal Labs 03/13/22 03/13/22 03/14/22 17:09 17:09 08:13 WBC 12.6 H 14.4 H RBC 5.83 H 6.28 H Hct 47.1 H MCV 75.3 L 75.0 L MCH 23.5 L 22.8 L MCHC 30.4 L RDW 16.4 H 17.2 H Plt Count 622 H 618 H MPV 9.1 L 8.9 L Immature Gran % (Auto) 0.7 H Neut % (Auto) 87.9 H 89.6 H Lymph % (Auto) 4.2 L 3.8 L Lymph # (Auto) 0.5 L 0.6 L Abs Immat Gran (auto) 0.05 H 0.10 H Absolute Neuts (auto) 11.1 H 12.9 H Sodium 134 L Potassium 5.5 H Carbon Dioxide BUN 17 H AST 40 H Total Protein 6.2 L Albumin 3.1 L Lipase 142 H 03/14/22 08:13 WBC RBC Hct MCV MCH MCHC RDW Plt Count MPV Immature Gran % (Auto) Neut % (Auto) Lymph % (Auto) Lymph # (Auto) Abs Immat Gran (auto) Absolute Neuts (auto) Sodium 134 L Potassium 6.0 H* Carbon Dioxide 21 L BUN 19 H AST Total Protein Albumin Lipase Assessment and Plan (1) Hypoxia: Status: Acute (2) Pleural effusion: Status: Acute (3) Ovarian mass: Status: Acute Plan The patient has malignant pleural effusions s/p bilateral pigtails. Unfortunately, she has a poor prognsosis REC: Continue drainage. May benefit from PleurX cathters depending on the home support and psycho-social issues Time Spent With Patient Time: Total time managing care of this patient today ____ minutes. Procedures Date of Service Date of Service: 03/14/22
[2022-03-14 15:26] LABS: Appearance Urine Clear; Color Urine Yellow; Glucose Urine UA Negative (Negative); Leukocyte Esterase Urine Negative (Negative); Nitrite Urine Negative (Negative); Specific Gravity - Urine >= 1.030 (1.005-1.025); Urine Blood Negative (Negative); Urine Ketones Negative (Negative); Urine Protein Trace mg/dL (Neg-Trace)
[2022-03-14 15:39] LABS: Potassium Urine Random 84.3 mmol/L; Sodium Urine Random < 20.0 mmol/L
[2022-03-14] MEDS: Morphine Sulfate 2 MG/ML CARTRIDGE IVPUSH (17:25)
[2022-03-15 01:25] VITALS: RESP 16
[2022-03-15] MEDS: Morphine Sulfate 2 MG/ML CARTRIDGE 4 MG IVPUSH ×2 (01:25→14:16)
[2022-03-15] MEDS: 0.9 % Sodium Chloride Flush 3 ML SYRINGE IVFLUSH ×3 (01:44→16:33)
[2022-03-15 04:48] VITALS: BP 126/80; PULSE 86; RESP 18; TEMP 36.6; O2SAT 99
[2022-03-15 06:56] LABS: Hemoglobin 12.8 g/dl (12.0-16.0); Mean Corpuscular HGB Conc 30.5 g/dl (31.0-35.0); Mean Corpuscular Hemoglobin 23.4 pg (27.0-33.0); Mean Corpuscular Volume 76.6 fL (80.0-98.0); Platelet Count 446 X10*3/uL (160-400); Red Blood Count 5.48 X10*6/uL (4.20-5.50); Red Cell Distribution Width 15.8 % (11.0-16.0); White Blood Count 11.7 X10*3/uL (4.8-10.8)
[2022-03-15 07:40] LABS: Anion Gap 14 (12-20); Blood Urea Nitrogen 20 mg/dL (9-16); Calcium 9.3 mg/dL (8.4-10.2); Carbon Dioxide 26 mmol/L (22-29); Chloride 99 mmol/L (96-108); Creatinine Clr Calc Pharmacy 69.1; Estimated Glomerular Filt Rate > 60; Glucose Random 126 mg/dL (60-115); Potassium 5.6 mmol/L (3.3-5.1); Sodium 133 mmol/L (135-145)
[2022-03-15 08:00] VITALS: BP 124/72; PULSE 98; RESP 12; TEMP 36.4; O2SAT 97
--- NOTE | 2022-03-15 10:07 | PM.HEMONCCN ---
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 CT angiogram was negative for PE, large bilateral pleural effusions with accompanying atelectasis and large volume ascites. CT abdomen/ pelvis showed: massive right ovarian cystic neoplasm, left ovary also appeared to be involved. This measured 14.8 cm with extensive peritoneal implants with omental caking some of which showed associated calcifications. Large massive tumors present within the cul-de-sac. Peritoneal implants present throughout the abdominal cavity. Favor serous ovarian carcinoma. HPI - Consult Narrative Reason for consult: Ovarian cancer Narrative: Aby Goss is a 56 year old female who was just diagnosed with advanced ovarian cancer got readmitted because of recurrent pleural effusions. She presented with shortness of breath, imaging revealed recurrent bilateral ascites, right greater than left. There was also reaccumulation of fluid in the abdomen with moderate ascites. She has had bilateral chest tubes placed. She reports improvement in shortness of breath. Review of Systems - Constitutional Reports lack of energy, Reports malaise, Reports poor appetite - Cardiovascular Denies chest pain, Reports foot swelling - Respiratory Denies cough, Reports dyspnea, Denies wheezing - Gastrointestinal Reports abdominal pain, Reports bloating, Reports change in bowel habits, Reports constipation - Genitourinary Reports no additional female genitourinary complaints - Musculoskeletal Reports body aches - Integumentary/Breasts Skin/Breast: Reports skin ulcer Oncology Screenings - ECOG Performance Status ECOG Performance Status: 2 [facility] Medical History: Medical History (Last Reviewed 03/13/22 @ 23:34 by Pennie Seaman MD) Abdominal ascites Anxiety Anxiety Family History: Family History (Last Reviewed 03/13/22 @ 23:34 by Pennie Seaman MD) Father History of coronary artery disease Surgical History: Surgical History (Last Reviewed 03/13/22 @ 23:34 by Pennie Seaman MD) No pertinent past surgical history Social History: Social History (Last Reviewed 03/13/22 @ 23:34 by Pennie Seaman MD) Living Situation History: Household Members: None Housing: House Do you presently have visiting nurse or other home services: No Alcohol History Details: 1. How often do you have a drink containing alcohol?: b. Monthly or less 3. How often do you have six or more drinks on one occasion?: a. Never AUDIT-C Alcohol total score: 1 Last drink: Unknown Currently Displaying Signs/Symptoms of Alcohol Withdrawal: No Tobacco History: Patient Tobacco Use Status: Never used Tobacco Smoked in Last 30 Days: No Patient Interested in Nicotine Replacement: No Patient Given Instructions on How to Stop Smoking: Patient Given Instructions on How to Stop Smoking comment: NA Second Hand Smoke Exposure: No Substance Use History: Use of substances other than those prescribed or required for medical reasons: No Currently Displaying Signs/Symptoms of Drug Intoxication Withdrawal: No Any prior treatment program specific to substance use: No Domestic Abuse History: Have you been hit, kicked, punched, or otherwise hurt by someone within the past year? If so, by whom?: No Do you feel safe in your current relationship?: Yes Is there a partner from a previous relationship who is making you feel unsafe now?: No Are you made to feel afraid or neglected: No Healthcare Practices: Spiritual Healthcare Practices: Muslim Advance Directives: Advance Directives: No Advance Directives Information Provided: Yes Homicidal Assessment: Do you have thoughts of harming others: Vague Do you have a plan to hurt others: No Plan Nutrition Assessment: Recently lost weight without trying: No Eating poorly because of decreased appetite: Yes Nutrition Risks: Anorexia Patient : No : No 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 Current occupational status: disabled Home Medications and Allergies Current Medications: Current Medications Acetaminophen (Acetaminophen 325 Mg Tablet) 650 mg PO Q6H PRN PRN Reason: Pain, Mild (Pain Scale 1-3) Melatonin (Melatonin 3 Mg Tablet) 6 mg PO BEDTIME PRN PRN Reason: Insomnia Last Admin: 03/14/22 01:47 Dose: 6 mg Melatonin (Melatonin 3 Mg Tablet) 6 mg PO BEDTIME PRN PRN Reason: insomnia Morphine Sulfate (Morphine Sulfate 2 Mg/Ml Cartridge) 4 mg IVPUSH Q4H PRN; Protocol PRN Reason: Pain, Severe (Pain Scale 7-10) Last Admin: 03/15/22 01:25 Dose: 4 mg Ondansetron HCl (Ondansetron Hcl 4 Mg/2 Ml Vial) 4 mg IVPUSH Q8H PRN PRN Reason: Nausea and Vomiting Oxycodone HCl (Oxycodone Hcl Immed Release 5 Mg Tablet) 5 mg PO Q4H PRN PRN Reason: Pain, Severe (Pain Scale 7-10) Last Admin: 03/14/22 11:23 Dose: 5 mg Sodium Chloride (0.9 % Sodium Chloride Flush 3 Ml Syringe) 3 ml IVFLUSH QSHIFT [facility] Last Admin: 03/15/22 09:39 Dose: 3 ml Trazodone HCl (Trazodone Hcl 50 Mg Tablet) 50 mg PO BEDTIME [facility] Last Admin: 03/14/22 22:13 Dose: Not Given Allergies Allergy/AdvReac Type Severity Reaction Status Date / Time ibuprofen Allergy Unknown Verified 03/04/22 20:47 Penicillins AdvReac Unknown Verified 03/04/22 20:47 Physical Exam Vital signs: Vital Signs Temp 97.8 F 03/15/22 04:48 Pulse 86 03/15/22 04:48 Resp 18 03/15/22 04:48 BP 126/80 03/15/22 04:48 Pulse Ox 99 03/15/22 04:48 O2 Del Method 03/15/22 04:48 O2 Flow Rate 4 03/15/22 04:48 Intake & Output 03/14/22 03/15/22 03/15/22 18:59 06:59 18:59 Intake Total 475 / 1235 760 / 1235 Output Total 300 / 1150 850 / 1150 Balance 175 / 85 -90 / 85 Urine Output (Average ml/kg/hr) 0.38 1.07 Intake: Intake, Oral Amount 475 / 1235 760 / 1235 Output: Output, Urine Amount 300 / 1150 850 / 1150 Other: Breakfast % Eaten 75% Lunch % Eaten 75% Number of Unmeasured Voids 1 Urine Bedside Commode Bedside Commode Urine Color Yellow Yellow Weight 66.224 kg - Constitutional Present: moderate distress - Routine HEENT Exam Head: Present: normal inspection Eye: Present: PERRL - Routine Neck Exam Absent: lymphadenopathy - Routine Respiratory Exam Present: decreased breath sounds. Absent: respiratory distress - Routine Cardiovascular Exam Cardiovascular: Present: S1, S2 - Routine Abdominal Exam Present: distended - Routine Extremities Exam Present: pedal edema - Routine Neurological Exam Present: alert, oriented X3 - Routine Psychiatric Exam Present: agitated, anxious Hem/Onc Consult Result - Labs CBC & Chem 7: 03/15/22 06:25 03/15/22 06:25 Labs: Short CBC 03/15/22 Range/Units 06:25 WBC 11.7 H (4.8-10.8) X10*3/uL Hgb 12.8 (12.0-16.0) g/dl Hct 42.0 (37.0-47.0) % Plt Count 446 H D (160-400) X10*3/uL BMP 03/15/22 06:25 Sodium 133 L Potassium 5.6 H Chloride 99 Carbon Dioxide 26 BUN 20 H Creatinine 0.84 Calcium 9.3 Urine 03/14/22 Range/Units 11:05 Urine Color Yellow Urine Appearance Clear Urine pH 5.0 (5.0-9.0) Ur Specific [place] >= 1.030 H (1.005-1.025) Urine Protein Trace (Neg-Trace) mg/dL Urine Glucose (UA) Negative (Negative) mg/dL Assessment and Plan Patient Active problem list reviewed?: Yes (1) Ovarian ca Status: Acute Assessment and plan: 1. This is a 56-year-old postmenopausal woman who has been diagnosed with high-grade serous carcinoma, probable ovarian primary. CT abdomen/pelvis with contrast shows massive complex right ovarian cystic neoplasm with involvement of left ovary as well. Multiloculated mass measuring 14.8 cm with extensive peritoneal implants and omental caking. Large tumors present within the cul-de-sac, peritoneal implants throughout abdominal cavity coating the surface of the right hemidiaphragm. Large bilateral pleural effusions, right greater than left. CA 125 greater than 18821 units/mL. Omental biopsy performed on 03/05/2022 showed high-grade serous carcinoma. By IHC tumor cells reactive with P 53, CK7, pancytokeratin, PAX-8 and WT1. Negative for CK- 20. Pleural fluid cytology positive for adenocarcinoma as well as ascitic fluid positive for adenocarcinoma. I discussed above diagnosis as well as stage which is stage WIL advanced high-grade carcinoma of the ovaries. Patient is extremely anxious, speaking tangentially and unable to process all the information. She underwent psychiatric evaluation but did not want any medication. Her healthcare proxy, Candace was present during the interview today. I have discussed with them that she has advanced ovarian cancer. She will be sent for the fluxer oncology consultation but because of her stage and extent of disease, she would need neoadjuvant chemotherapy with creek-based doublet and Avastin. It is not clear if there is any family history, patient unable to provide additional history today, she is too distraught and anxious. She is a candidate for genetic testing as well. She has bilateral chest tubes. PleurX catheter placement at least for the right side with there is larger effusion can be placed. She will need VNA services. I will see her upon discharge and also arrange for her to have [facility] On[facility] referral at [facility]. - Time Spent With Patient Time Spent with Patient (in minutes): 30
[2022-03-15 11:54] VITALS: BP 128/68; PULSE 95; RESP 12; TEMP 36.6; O2SAT 99
--- NOTE | 2022-03-15 12:46 | PM.PNPUL ---
Subjective Subjective Date of Service: 03/15/22 Interval history: The patient was seen on exam. Still has significant amount of fluid from the chest tubes. Plan to switch him to PleurX catheters next week in order to allow her to have palliative drainage at home. I will clamp the chest tubes today with hopes of getting a chest x-ray tomorrow. Depending a quickly the fluid is coming back we may decide to keep the chest still shows unclamped versus clamped. If the patient has any worsening shortness of breath hypoxia that she opts to may have to be on clamped. Objective Data Labs 03/15/22 06:25 03/15/22 06:25 Labs: Laboratory Results - last 24 hr 03/14/22 03/14/22 03/15/22 11:05 11:05 06:25 WBC 11.7 H RBC 5.48 Hgb 12.8 Hct 42.0 MCV 76.6 L MCH 23.4 L MCHC 30.5 L RDW 15.8 Plt Count 446 H D MPV 9.0 L Absolute Nucleated RBC 0.000 Nucleated RBC % (auto) 0.0 Sodium Potassium Chloride Carbon Dioxide Anion Gap BUN Creatinine Estim Creat Clear Calc Estimated GFR Random Glucose Calcium Urine Color Yellow Urine Appearance Clear Urine pH 5.0 Ur Specific [place] >= 1.030 H Urine Protein Trace Urine Glucose (UA) Negative Urine Ketones Negative Urine Blood Negative Urine Nitrite Negative Ur Leukocyte Esterase Negative Ur Random Sodium < 20.0 Ur Random Potassium 84.3 Ur Random Chloride 21.0 03/15/22 06:25 WBC RBC Hgb Hct MCV MCH MCHC RDW Plt Count MPV Absolute Nucleated RBC Nucleated RBC % (auto) Sodium 133 L Potassium 5.6 H Chloride 99 Carbon Dioxide 26 Anion Gap 14 BUN 20 H Creatinine 0.84 Estim Creat Clear Calc 69.1 Estimated GFR > 60 Random Glucose 126 H Calcium 9.3 Urine Color Urine Appearance Urine pH Ur Specific [place] Urine Protein Urine Glucose (UA) Urine Ketones Urine Blood Urine Nitrite Ur Leukocyte Esterase Ur Random Sodium Ur Random Potassium Ur Random Chloride Microbiology Microbiology Results: Microbiology 03/13/22 17:08 Blood - Venous Blood Culture - Preliminary No growth after 24 hours. 03/13/22 17:08 Blood - Venous Blood Culture - Preliminary No growth after 24 hours. Review of Systems Constitutional: Reports fatigue, Reports lethargy and Reports malaise Cardiovascular: Reports dyspnea on exertion Respiratory: Reports dyspnea on exertion Gastrointestinal: Reports bloating Genitourinary: Reports no additional female genitourinary complaints Endocrine: Reports fatigue Physical Exam Vital Signs: Vital Signs: Last Vital Signs Temp 97.8 F 03/15/22 11:54 Pulse 95 03/15/22 11:54 Resp 12 03/15/22 11:54 BP 128/68 03/15/22 11:54 Pulse Ox 99 03/15/22 11:54 O2 Del Method 03/15/22 11:54 O2 Flow Rate 4 03/15/22 11:54 BMI result Body Mass Index 25.0 Appearing in no acute distress lung: chest tubes intact bilateral, dimished breath sounds heart regular rate rhythm, clear S1, S2 positive bowel sounds, abdomen is soft, nontender neuro patient is alert x3, no focal deficits Pig tail cath to drainage Procedures Date of Service Date of Service: 03/15/22 Assessment and Plan Assessment and plan (1) Pleural effusion: Status: Acute (2) Ovarian mass: Status: Acute (3) Hypoxia: Status: Acute Plan clamped chest tubes, will reassess with CXR tomorrow AM If any hypoxia or shortness of breath then please unclamped the chest tubes Will benefit from palliative pleural fluid drainage with pleurX catheters, plan to arrange placement next week Time Spent With Patient Time: Total time managing care of this patient today ____ minutes. Progress Note: Quality Stroke Does the patient have a stroke diagnosis?: No
--- NOTE | 2022-03-15 14:26 | HO.PM.IMPN ---
Subjective Subjective Date of Service: 03/15/22 Interval History: Patient complaining of constipation, bloating, abdominal pain , tiredness, patient extremely anxious speaking tangentially, keep repeating herself, no acute overnight events, no fevers, no chills, no nausea no vomiting. Review of Systems Review of Systems: Yes all other systems are reviewed and are negative Physical Exam Vital Signs: Vital Signs: Last Vital Signs Temp 97.8 F 03/15/22 11:54 Pulse 95 03/15/22 11:54 Resp 12 03/15/22 11:54 BP 128/68 03/15/22 11:54 Pulse Ox 99 03/15/22 11:54 O2 Del Method 03/15/22 11:54 O2 Flow Rate 4 03/15/22 11:54 BMI result Body Mass Index 25.0 Const: Other: General very anxious,in no acute distress. Neck supple no JVD. CVS regular rate rhythm, Respiratory lungs clear to auscultation, no respiratory distress, no wheeze, no rhonchi, Bilateral pigtail catheter to drainage Gastrointestinal abdomen distended,bowel sounds audible, no guarding , no rigidity. Extremities no edema. Bilateral foot blisters dressing in place Neuro nonfocal patient moving all 4 extremity speech clear. Skin no rash Psych anxious Objective Data Active Medications Acetaminophen (Acetaminophen 325 Mg Tablet) 650 mg PO Q6H PRN PRN Reason: Pain, Mild (Pain Scale 1-3) Melatonin (Melatonin 3 Mg Tablet) 6 mg PO BEDTIME PRN PRN Reason: Insomnia Last Admin: 03/14/22 01:47 Dose: 6 mg Documented By: RENALDO Morphine Sulfate (Morphine Sulfate 2 Mg/Ml Cartridge) 4 mg IVPUSH Q4H PRN; Protocol PRN Reason: Pain, Severe (Pain Scale 7-10) Last Admin: 03/15/22 01:25 Dose: 4 mg Documented By: STEVE Ondansetron HCl (Ondansetron Hcl 4 Mg/2 Ml Vial) 4 mg IVPUSH Q8H PRN PRN Reason: Nausea and Vomiting Oxycodone HCl (Oxycodone Hcl Immed Release 5 Mg Tablet) 5 mg PO Q4H PRN PRN Reason: Pain, Severe (Pain Scale 7-10) Last Admin: 03/14/22 11:23 Dose: 5 mg Documented By: MATILDE Sodium Chloride (0.9 % Sodium Chloride Flush 3 Ml Syringe) 3 ml IVFLUSH QSHIFT [facility] Last Admin: 03/15/22 09:39 Dose: 3 ml Documented By: MATILDE Trazodone HCl (Trazodone Hcl 50 Mg Tablet) 50 mg PO BEDTIME [facility] Last Admin: 03/14/22 22:13 Dose: Not Given Documented By: STEVE Non-Admin Reason: Patient Refused Labs 03/15/22 06:25 03/15/22 06:25 Labs: Laboratory Results - last 24 hr 03/14/22 03/14/22 03/15/22 11:05 11:05 06:25 MCV 76.6 L MCH 23.4 L MCHC 30.5 L RDW 15.8 Plt Count 446 H D MPV 9.0 L Absolute Nucleated RBC 0.000 Nucleated RBC % (auto) 0.0 Anion Gap Estim Creat Clear Calc Estimated GFR Random Glucose Calcium Urine Color Yellow Urine Appearance Clear Urine pH 5.0 Ur Specific [place] >= 1.030 H Urine Protein Trace Urine Glucose (UA) Negative Urine Ketones Negative Urine Blood Negative Urine Nitrite Negative Ur Leukocyte Esterase Negative Ur Random Sodium < 20.0 Ur Random Potassium 84.3 Ur Random Chloride 21.0 03/15/22 06:25 MCV MCH MCHC RDW Plt Count MPV Absolute Nucleated RBC Nucleated RBC % (auto) Anion Gap 14 Estim Creat Clear Calc 69.1 Estimated GFR > 60 Random Glucose 126 H Calcium 9.3 Urine Color Urine Appearance Urine pH Ur Specific [place] Urine Protein Urine Glucose (UA) Urine Ketones Urine Blood Urine Nitrite Ur Leukocyte Esterase Ur Random Sodium Ur Random Potassium Ur Random Chloride Microbiology Microbiology Results: Microbiology 03/13/22 17:08 Blood Culture - Preliminary Blood - Venous No growth after 24 hours. 03/13/22 17:08 Blood Culture - Preliminary Blood - Venous No growth after 24 hours. Assessment and Plan (1) Ovarian ca: Status: Acute (2) Hypoxia: Status: Acute (3) Anxiety: Status: Acute (4) Abdominal ascites: Status: Acute (5) Ascites, malignant: Status: Acute (6) Pleural effusion: Status: Acute (7) Ovarian mass: Status: Acute Plan 56-year-old female with pertinent history of ovarian mass with malignant ascites and malignant pleural effusion, mood disorder presents to the emergency department for shortness of breath and worsening abdominal distension. Acute hypoxemic respiratory failure secondary to bilateral malignant pleural effusion Shortness of breath improved oxygenation stable status post bilateral pigtail catheter placement in the ER. Seen by Dr. Bennett both tubes clamped, Will unclamped tube if noted to have shortness of breath or hypoxia follow-up chest x-ray at a.m. Will discuss with IR on Friday for placement of PleurX catheter Recurrent Malignant ascites previous admission drained 5.2 L bloody fluid with cytology showing metastatic adenocarcinoma.? Repeat paracentesis is scheduled for this afternoon High-grade serous Ovarian cancer Status post peritoneal biopsy , CA 125 12,000 unit per mL case discussed with Dr. Moran she recommend hospitality host Oncology at [facility] Constipation will add MiraLax and stool softeners, likely due to narcotics, Mood disorder psych was consulted during previous admission and patient declined medications for anxiety/depression/PTSD Continue trazodone 50 mg started during previous admission DVT prophylaxis full code Continue hospitalization for treatment of? bilateral pigtail catheter, abdominal ascites requiring paracentesis scheduled for this afternoon Time Spent With Patient Time: Total time managing care of this patient today ____ minutes. Quality Stroke Does the patient have a stroke diagnosis?: No VTE Prior VTE?: No VTE Risk Level:: Medical - moderate - high VTE Device Contraindication: N/A - Device Ordered VTE Drug Contraindication: Treatment Not Indicated
--- NOTE | 2022-03-15 15:13 | PC.NURSE ---
Addendum entered by Essence Bolanos RN 03/15/22 15:17: Dr. Bennett in to clamp chest tubes with this RN at bedside. MD discussed plan with pt, pt verbally understood. No c/o SOB or signs of respiratory distress. Original Note: report received from overnight RN, director of graduate medical education per MAY. pt down to get paracentesis at 1430.
[2022-03-15] MEDS: Lidocaine HCl 1 % MPF 5 ML VIAL 10 ML SUBCUT (15:49)
--- NOTE | 2022-03-15 15:58 | MHC.HEMONC ---
Appt with Dr Nelson [facility] at [address] [place] [address] on 03/21/22 at 3pm. I will inform patient.
[2022-03-15 16:10] LABS: MN% 93.7 %; PMN% 6.3 %; RBC Peritoneal Fluid 0.028 X10*6/uL; WBC Peritoneal Fluid 1.927 X10*3/uL
[2022-03-15 16:20] VITALS: BP 114/68; PULSE 91; RESP 18; TEMP 36.6; O2SAT 94
[2022-03-15] MEDS: Sodium Zirconium Cyclosilicate 5 GM POWD.PACK PO (16:33)
[2022-03-15 17:02] LABS: BF Shift QC OK YES; Lymphocyte Peritoneal Fl 70 %; Monocytes Peritoneal Fl 5 %; Neutrophils Peritoneal Fluid 1 %; Other Peritioneal Fl 24 %
[2022-03-15 19:03] VITALS: BP 108/63; PULSE 105; RESP 18; TEMP 36.3; O2SAT 93
[2022-03-16] VITALS: BP 113/69; PULSE 90; RESP 16; TEMP 36.1; O2SAT 98
[2022-03-16] MEDS: Melatonin 3 MG TABLET 6 MG PO (00:34)
[2022-03-16] MEDS: 0.9 % Sodium Chloride Flush 3 ML SYRINGE IVFLUSH ×3 (01:28→17:53)
[2022-03-16 04:00] VITALS: BP 99/60; PULSE 86; PULSE 93; RESP 16; TEMP 36.3; O2SAT 97
[2022-03-16] MEDS: Docusate Sodium 100 MG CAPSULE 200 MG PO (06:30)
[2022-03-16 06:37] LABS: Anion Gap 13 (12-20); Blood Urea Nitrogen 15 mg/dL (9-16); Calcium 8.6 mg/dL (8.4-10.2); Carbon Dioxide 27 mmol/L (22-29); Chloride 100 mmol/L (96-108); Creatinine Clr Calc Pharmacy 86.7; Estimated Glomerular Filt Rate > 60; Glucose Random 89 mg/dL (60-115); Potassium 5.7 mmol/L (3.3-5.1); Sodium 134 mmol/L (135-145)
[2022-03-16 06:48] VITALS: BMI 23.8
[2022-03-16 08:00] VITALS: BP 104/60; PULSE 94; RESP 18; TEMP 36.7; O2SAT 99
[2022-03-16] MEDS: polyethylene glycoL 3350 17 GM POWD.PACK PO (09:17)
[2022-03-16] MEDS: Enoxaparin Sodium 40 MG/0.4 ML SYRINGE SUBCUT (09:20)
--- NOTE | 2022-03-16 09:37 | HO.PM.IMPN ---
Subjective Subjective Date of Service: 03/16/22 Interval History: Patient more coherent today feeling better that she underwent paracentesis , feels proud of herself, very thankful to the start of further support, complaining of discomfort at Coccyx, no shortness of breath, no cough, no chest pain, no palpitation, no abdominal discomfort tolerating diet, took stool softeners this a.m., no result yet. Physical Exam Vital Signs: Vital Signs: Last Vital Signs Temp 98.0 F 03/16/22 08:00 Pulse 94 03/16/22 08:00 Resp 18 03/16/22 08:00 BP 104/60 03/16/22 08:00 Pulse Ox 99 03/16/22 08:00 O2 Del Method 03/16/22 08:00 O2 Flow Rate 2 03/16/22 08:00 BMI result Body Mass Index 23.8 Const: Other: General awake alert x3, less anxious,in no acute distress.? Neck supple no JVD. CVS? regular rate rhythm, Respiratory lungs clear to auscultation, no respiratory distress, no wheeze, no rhonchi, diminished at bases? Bilateral pigtail catheter to drainage Gastrointestinal abdomen distended,bowel sounds audible, no guarding , no rigidity, nontender. Extremities no edema.? Bilateral foot blisters dressing in place Neuro nonfocal Skin no rash Psych appropriate affect, less anxious Objective Data Active Medications Acetaminophen (Acetaminophen 325 Mg Tablet) 650 mg PO Q6H PRN PRN Reason: Pain, Mild (Pain Scale 1-3) Docusate Sodium (Docusate Sodium 100 Mg Capsule) 200 mg PO BEDTIME [facility] Last Admin: 03/16/22 06:30 Dose: 200 mg Documented By: JOANN Comments: unscheduled d/t pt refused last night Enoxaparin Sodium (Enoxaparin Sodium 40 Mg/0.4 Ml Syringe) 40 mg SUBCUT Q24H [facility] Last Admin: 03/16/22 09:20 Dose: 40 mg Documented By: SHANIQUA Melatonin (Melatonin 3 Mg Tablet) 6 mg PO BEDTIME PRN PRN Reason: Insomnia Last Admin: 03/16/22 00:34 Dose: 6 mg Documented By: JOANN Morphine Sulfate (Morphine Sulfate 2 Mg/Ml Cartridge) 4 mg IVPUSH Q4H PRN; Protocol PRN Reason: Pain, Severe (Pain Scale 7-10) Last Admin: 03/15/22 14:16 Dose: 4 mg Documented By: MATILDE Ondansetron HCl (Ondansetron Hcl 4 Mg/2 Ml Vial) 4 mg IVPUSH Q8H PRN PRN Reason: Nausea and Vomiting Oxycodone HCl (Oxycodone Hcl Immed Release 5 Mg Tablet) 5 mg PO Q4H PRN PRN Reason: Pain, Severe (Pain Scale 7-10) Last Admin: 03/14/22 11:23 Dose: 5 mg Documented By: MATILDE Polyethylene Glycol (Polyethylene Glycol 3350 17 Gm Powd.Pack) 17 gm PO DAILY [facility] Last Admin: 03/16/22 09:17 Dose: 17 gm Documented By: SHANIQUA Sodium Chloride (0.9 % Sodium Chloride Flush 3 Ml Syringe) 3 ml IVFLUSH QSHIFT [facility] Last Admin: 03/16/22 09:17 Dose: 3 ml Documented By: SHANIQUA Trazodone HCl (Trazodone Hcl 50 Mg Tablet) 50 mg PO BEDTIME [facility] Last Admin: 03/16/22 00:40 Dose: Not Given Documented By: JOANN Non-Admin Reason: Patient Refused Labs 03/15/22 06:25 03/16/22 05:51 Labs: Laboratory Results - last 24 hr 03/15/22 03/16/22 15:10 05:51 Anion Gap 13 Estim Creat Clear Calc 86.7 Estimated GFR > 60 Random Glucose 89 Calcium 8.6 D Peritoneal WBC 1.927 Peritoneal RBC 0.028 Periton Neutrophils 1 Periton Lymphocytes 70 Peritoneal Monocytes 5 Peritoneal Other Cells 24 Microbiology Microbiology Results: Microbiology 03/13/22 17:08 Blood Culture - Preliminary Blood - Venous No growth after 48 hours. 03/13/22 17:08 Blood Culture - Preliminary Blood - Venous No growth after 48 hours. Assessment and Plan (1) Ovarian ca: Status: Acute (2) Hypoxia: Status: Acute (3) Anxiety: Status: Acute (4) Abdominal ascites: Status: Acute (5) Ascites, malignant: Status: Acute (6) Pleural effusion: Status: Acute (7) Ovarian mass: Status: Acute Plan 56-year-old female with pertinent history of ovarian mass with malignant ascites and malignant pleural effusion, mood disorder presents to the emergency department for shortness of breath and worsening abdominal distension. Acute hypoxemic respiratory failure secondary to bilateral malignant pleural effusion Shortness of breath improved oxygenation stable 99% on 2 L status post bilateral pigtail catheter placement in the ER. Seen by Dr. Bennett both tubes clamped, 24 hours ago no shortness of breath or hypoxia chest x-ray of this a.m. showed small right-sided pleural effusion and trace left-sided pleural fluid Will discuss with IR on Friday for placement of PleurX catheter Recurrent Malignant ascites previous admission drained 5.2 L bloody fluid with cytology showing metastatic adenocarcinoma.? 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 Moran she recommend outpatient visual educator Oncology at [facility] Continue current pain medications oxycodone 5 mg and morphine 4 mg q.4 hours as needed Constipation continue MiraLax and stool softeners, likely due to narcotics, if no result will add lactulose Mood disorder psych was consulted during previous admission and patient declined medications for anxiety/depression/PTSD Continue trazodone 50 mg started during previous admission DVT prophylaxis Lovenox subQ full code Continue hospitalization for treatment of? bilateral pigtail catheter, abdominal and generalized pain requiring IV morphine Time Spent With Patient Time: Total time managing care of this patient today ____ minutes. Quality Stroke Does the patient have a stroke diagnosis?: No VTE Prior VTE?: No VTE Risk Level:: Medical - moderate - high VTE Device Contraindication: N/A - Device Ordered VTE Drug Contraindication: Treatment Not Indicated
[2022-03-16 12:00] VITALS: BP 93/45; PULSE 97; RESP 18; TEMP 36.7; O2SAT 97
[2022-03-16 16:00] VITALS: BP 108/71; PULSE 92; RESP 18; TEMP 36.5; O2SAT 96
[2022-03-16 20:00] VITALS: BP 98/69; PULSE 105; RESP 16; TEMP 36.8; O2SAT 94
--- NOTE | 2022-03-16 22:15 | PM.PNPUL ---
Subjective Subjective Date of Service: 03/16/22 Interval history: Seen and examined. Both chest tubes are clamped. She is doing well. HAving some coughing. We did talk about the benefits of a PLeurx catheter and she is agreeable. I meet with the pt her and answered all their questions. Objective Data Labs 03/15/22 06:25 03/16/22 05:51 Labs: Laboratory Results - last 24 hr 03/16/22 05:51 Sodium 134 L Potassium 5.7 H Chloride 100 Carbon Dioxide 27 Anion Gap 13 BUN 15 Creatinine 0.67 Estim Creat Clear Calc 86.7 Estimated GFR > 60 Random Glucose 89 Calcium 8.6 D Microbiology Microbiology Results: Microbiology 03/13/22 17:08 Blood - Venous Blood Culture - Preliminary No growth after 48 hours. 03/13/22 17:08 Blood - Venous Blood Culture - Preliminary No growth after 48 hours. Review of Systems Constitutional: Reports fatigue, Reports lethargy and Reports malaise Cardiovascular: Reports dyspnea on exertion Respiratory: Reports cough and Reports dyspnea on exertion Gastrointestinal: Reports abdominal pain and Reports bloating Genitourinary: Reports no additional female genitourinary complaints Endocrine: Reports fatigue Physical Exam Vital Signs: Vital Signs: Last Vital Signs Temp 97.7 F 03/16/22 16:00 Pulse 92 03/16/22 16:00 Resp 18 03/16/22 16:00 BP 108/71 03/16/22 16:00 Pulse Ox 96 03/16/22 16:00 O2 Del Method 03/16/22 16:00 O2 Flow Rate 2 03/16/22 16:00 BMI result Body Mass Index 23.8 Const: Other: General awake alert x3, less anxious,in no acute distress.? Neck supple no JVD. CVS? regular rate rhythm, Respiratory lungs clear to auscultation, no respiratory distress, no wheeze, no rhonchi, diminished at bases? Bilateral pigtail catheter to drainage Gastrointestinal abdomen distended,bowel sounds audible, no guarding , no rigidity, nontender. Extremities no edema.? Bilateral foot blisters dressing in place Neuro nonfocal Skin no rash Psych appropriate affect, less anxious Procedures Date of Service Date of Service: 03/16/22 Assessment and Plan Assessment and plan (1) Pleural effusion: Status: Acute (2) Ovarian mass: Status: Acute (3) Hypoxia: Status: Acute Plan clamped chest tubes, will reassess with CXR tomorrow AM If any hypoxia or shortness of breath then please unclamped the chest tubes Will benefit from palliative pleural fluid drainage with pleurX catheter(s), plan to arrange placement next week Time Spent With Patient Time: Total time managing care of this patient today ____ minutes. Progress Note: Quality Stroke Does the patient have a stroke diagnosis?: No
[2022-03-17] VITALS: BP 102/59; PULSE 92; TEMP 35.8; O2SAT 94
[2022-03-17] MEDS: Morphine Sulfate 2 MG/ML CARTRIDGE 4 MG IVPUSH (00:37)
[2022-03-17] MEDS: 0.9 % Sodium Chloride Flush 3 ML SYRINGE IVFLUSH ×3 (00:37→16:29)
[2022-03-17] MEDS: traZODone HCL 50 MG TABLET PO (03:18)
[2022-03-17 07:22] VITALS: BP 103/65; PULSE 90; RESP 18; TEMP 37.1; O2SAT 97
[2022-03-17] MEDS: Enoxaparin Sodium 40 MG/0.4 ML SYRINGE SUBCUT (10:05)
--- NOTE | 2022-03-17 11:11 | P.PNIM_ITS ---
Subjective Subjective Date of Service: 03/17/22 Interval History: Patient again anxious this morning concerned about addiction if she takes trazodone all other narcotics, feels oxycodone is not helping her, anxious about placement of PleurX catheter tomorrow that will cause physical pain to her, otherwise denies chest pain, no shortness of breath, no hypoxia, no other acute issues, no nausea, no vomiting. Review of Systems Review of Systems: Yes all other systems are reviewed and are negative Physical Exam Vital Signs: Vital Signs: Last Vital Signs Temp 98.8 F 03/17/22 07:22 Pulse 90 03/17/22 07:22 Resp 18 03/17/22 07:22 BP 103/65 03/17/22 07:22 Pulse Ox 97 03/17/22 07:22 O2 Del Method 03/17/22 07:22 O2 Flow Rate 2 03/16/22 16:00 BMI result Body Mass Index 23.8 Const: Other: General awake alert x3, less anxious,in no acute distress.? Neck supple no JVD. CVS? regular rate rhythm, Respiratory lungs clear to auscultation, no respiratory distress, no wheeze, no rhonchi, diminished at bases? Bilateral pigtail catheter clamped Gastrointestinal abdomen distended,bowel sounds audible, no guarding , no rigidity, nontender. Extremities no edema.? Bilateral foot blisters dressing in place Neuro nonfocal Skin no rash Psych appropriate affect, less anxious Objective Data Active Medications Acetaminophen (Acetaminophen 325 Mg Tablet) 650 mg PO Q6H PRN PRN Reason: Pain, Mild (Pain Scale 1-3) Docusate Sodium (Docusate Sodium 100 Mg Capsule) 200 mg PO BEDTIME [facility] Last Admin: 03/16/22 06:30 Dose: 200 mg Documented By: JOANN Comments: unscheduled d/t pt refused last night Enoxaparin Sodium (Enoxaparin Sodium 40 Mg/0.4 Ml Syringe) 40 mg SUBCUT Q24H [facility] Last Admin: 03/17/22 10:05 Dose: 40 mg Documented By: SHANIQUA Melatonin (Melatonin 3 Mg Tablet) 6 mg PO BEDTIME PRN PRN Reason: Insomnia Last Admin: 03/16/22 00:34 Dose: 6 mg Documented By: JOANN Morphine Sulfate (Morphine Sulfate 2 Mg/Ml Cartridge) 4 mg IVPUSH Q4H PRN; Protocol PRN Reason: Pain, Severe (Pain Scale 7-10) Last Admin: 03/17/22 00:37 Dose: 4 mg Documented By: JOANN Ondansetron HCl (Ondansetron Hcl 4 Mg/2 Ml Vial) 4 mg IVPUSH Q8H PRN PRN Reason: Nausea and Vomiting Oxycodone HCl (Oxycodone Hcl Immed Release 5 Mg Tablet) 5 mg PO Q4H PRN PRN Reason: Pain, Severe (Pain Scale 7-10) Last Admin: 03/14/22 11:23 Dose: 5 mg Documented By: MATILDE Polyethylene Glycol (Polyethylene Glycol 3350 17 Gm Powd.Pack) 17 gm PO DAILY [facility] Last Admin: 03/17/22 10:07 Dose: Not Given Documented By: SHANIQUA Non-Admin Reason: Patient Refused Sodium Chloride (0.9 % Sodium Chloride Flush 3 Ml Syringe) 3 ml IVFLUSH QSHIFT [facility] Last Admin: 03/17/22 10:05 Dose: 3 ml Documented By: SHANIQUA Trazodone HCl (Trazodone Hcl 50 Mg Tablet) 50 mg PO BEDTIME [facility] Last Admin: 03/17/22 03:18 Dose: 50 mg Documented By: JOANN Comments: 2100 med refused pt requested dose Labs 03/15/22 06:25 03/16/22 05:51 Assessment and Plan (1) Ovarian ca: Status: Acute (2) Hypoxia: Status: Acute (3) Anxiety: Status: Acute (4) Abdominal ascites: Status: Acute (5) Ascites, malignant: Status: Acute (6) Pleural effusion: Status: Acute (7) Ovarian mass: Status: Acute Plan 56-year-old female with pertinent history of ovarian mass with malignant ascites and malignant pleural effusion, mood disorder presents to the emergency department for shortness of breath and worsening abdominal distension. Acute hypoxemic respiratory failure secondary to bilateral malignant pleural e ffusion Shortness of breath improved oxygenation stable 97% on RA status post bilateral pigtail catheter placement in the ER. Seen by Dr. Bennett both tubes clamped, 48 hours ago no shortness of breath or hypoxia chest x-ray of this a.m. showed resolution of left pleural effusion, stable tiny right-sided effusion Follow chest x-ray at a.m. and will discuss with pulmonology and IR on Friday regarding possibility of PleurX catheter Recurrent Malignant ascites previous admission drained 5.2 L bloody fluid with cytology showing metastatic adenocarcinoma.? Repeat paracentesis 03/15, patient tolerated procedure well, no abdominal pain this morning High-grade serous Ovarian cancer Status post peritoneal biopsy , CA 125 12,000 unit per mL Seen by Dr. Moran she recommend outpatient campground attendant Oncology at [facility] dc oxycodone since no relief and place on MSIR 15mg and continue iv morphine 4 mg q.4 hours as needed. Constipation resolved, continue MiraLax and stool softeners Mood disorder psych was consulted during previous admission and patient declined medications for anxiety/depression/PTSD Continue trazodone 50 mg started during previous admission , patient at times refused to take trazodone and take it later at night, recommend to take trazodone that will help her to sleep DVT prophylaxis Lovenox subQ full code Continue hospitalization for treatment of? bilateral pigtail catheter, abdominal and generalized pain requiring IV morphine Time Spent With Patient Time: Total time managing care of this patient today ____ minutes. Quality Stroke Does the patient have a stroke diagnosis?: No VTE Prior VTE?: No VTE Risk Level:: Medical - moderate - high VTE Device Contraindication: N/A - Device Ordered VTE Drug Contraindication: Treatment Not Indicated
[2022-03-17 12:00] VITALS: BP 90/55; PULSE 89; RESP 18; TEMP 36.9; O2SAT 98
[2022-03-17 16:00] VITALS: BP 115/64; PULSE 91; RESP 16; TEMP 36.6; O2SAT 94
[2022-03-17] MEDS: Morphine Sulfate Immed Release 15 MG TABLET PO (16:27)
[2022-03-17 18:58] VITALS: BP 103/58; PULSE 89; RESP 16; TEMP 36.3; O2SAT 95
[2022-03-17 23:48] VITALS: BP 101/62; PULSE 86; RESP 16; TEMP 36.5; O2SAT 97
[2022-03-18] MEDS: 0.9 % Sodium Chloride Flush 3 ML SYRINGE IVFLUSH ×4 (01:11→23:33)
[2022-03-18] MEDS: Morphine Sulfate 2 MG/ML CARTRIDGE 4 MG IVPUSH (01:25)
[2022-03-18] MEDS: Melatonin 3 MG TABLET 6 MG PO (02:28)
[2022-03-18 08:00] VITALS: BP 121/66; PULSE 91; RESP 20; TEMP 36.4; O2SAT 95
[2022-03-18] MEDS: Enoxaparin Sodium 40 MG/0.4 ML SYRINGE SUBCUT (09:41)
[2022-03-18 11:02] VITALS: BP 106/73; PULSE 87; RESP 20; TEMP 36.1; O2SAT 98
--- NOTE | 2022-03-18 15:19 | MHC.CM.PN ---
DP Home with Candace/[facility]NA and [facility]. [facility] appt scheduled with Dr Nelson 03/21/22. Candace will provide transportation home.
[2022-03-18 15:27] VITALS: BP 122/79; PULSE 108; RESP 20; TEMP 36.6; O2SAT 97
--- NOTE | 2022-03-18 16:31 | HO.PM.IMPN ---
Subjective Subjective Date of Service: 03/18/22 Interval History: Patient remains very anxious about undergoing PleurX catheter placement initially refused to go down for lateral view chest x-ray later agreed, had poor sleep last night, requesting not to be disturbed at night for vitals since sleep late, denies fever chills, no shortness of breath, no hypoxia tolerating diet with no nausea no vomiting no abdominal pain. Review of Systems Review of Systems: Yes all other systems are reviewed and are negative Physical Exam Vital Signs: Vital Signs: Last Vital Signs Temp 98 F 03/18/22 15:27 Pulse 108 H 03/18/22 15:27 Resp 20 03/18/22 15:27 BP 122/79 03/18/22 15:27 Pulse Ox 97 03/18/22 15:27 O2 Del Method 03/18/22 15:27 O2 Flow Rate 2 03/16/22 16:00 BMI result Body Mass Index 23.8 Const: Other: General awake alert x3, less anxious,in no acute distress.? Neck supple no JVD. CVS? regular rate rhythm, Respiratory lungs clear to auscultation, no respiratory distress, no wheeze, no rhonchi, diminished at bases? Bilateral pigtail catheter clamped Gastrointestinal abdomen distended,bowel sounds audible, no guarding , no rigidity, nontender. Extremities no edema.? Bilateral foot blisters dressing in place Neuro nonfocal Skin no rash Psych appropriate affect, less anxious Objective Data Active Medications Acetaminophen (Acetaminophen 325 Mg Tablet) 650 mg PO Q6H PRN PRN Reason: Pain, Mild (Pain Scale 1-3) Docusate Sodium (Docusate Sodium 100 Mg Capsule) 200 mg PO BEDTIME [facility] Last Admin: 03/17/22 19:54 Dose: Not Given Documented By: SHANIQUA Non-Admin Reason: Patient Refused Enoxaparin Sodium (Enoxaparin Sodium 40 Mg/0.4 Ml Syringe) 40 mg SUBCUT Q24H [facility] Last Admin: 03/18/22 09:41 Dose: 40 mg Documented By: SHANIQUA Melatonin (Melatonin 3 Mg Tablet) 6 mg PO BEDTIME PRN PRN Reason: Insomnia Last Admin: 03/18/22 02:28 Dose: 6 mg Documented By: BOAZ Morphine Sulfate (Morphine Sulfate 2 Mg/Ml Cartridge) 4 mg IVPUSH Q4H PRN; Protocol PRN Reason: Pain, Severe (Pain Scale 7-10) Last Admin: 03/18/22 01:25 Dose: 4 mg Documented By: BOAZ Morphine Sulfate (Morphine Sulfate Immed Release 15 Mg Tablet) 15 mg PO Q6H PRN PRN Reason: Pain, Moderate (Pain Scale 4-6 Last Admin: 03/17/22 16:27 Dose: 15 mg Documented By: SHANIQUA Ondansetron HCl (Ondansetron Hcl 4 Mg/2 Ml Vial) 4 mg IVPUSH Q8H PRN PRN Reason: Nausea and Vomiting Polyethylene Glycol (Polyethylene Glycol 3350 17 Gm Powd.Pack) 17 gm PO DAILY [facility] Last Admin: 03/18/22 09:42 Dose: Not Given Documented By: SHANIQUA Non-Admin Reason: Patient Refused Sodium Chloride (0.9 % Sodium Chloride Flush 3 Ml Syringe) 3 ml IVFLUSH QSHIFT [facility] Last Admin: 03/18/22 01:25 Dose: 3 ml Documented By: BOAZ Trazodone HCl (Trazodone Hcl 50 Mg Tablet) 50 mg PO BEDTIME [facility] Last Admin: 03/17/22 03:18 Dose: 50 mg Documented By: JOANN Comments: 2100 med refused pt requested dose Labs 03/15/22 06:25 03/16/22 05:51 Assessment and Plan (1) Ovarian ca: Status: Acute (2) Hypoxia: Status: Acute (3) Anxiety: Status: Acute (4) Abdominal ascites: Status: Acute (5) Ascites, malignant: Status: Acute (6) Pleural effusion: Status: Acute (7) Ovarian mass: Status: Acute Plan 56-year-old female with pertinent history of ovarian mass with malignant ascites and malignant pleural effusion, mood disorder presents to the emergency department for shortness of breath and worsening abdominal distension. Acute hypoxemic respiratory failure secondary to bilateral malignant pleural effusion Shortness of breath improved oxygenation stable 97% on RA status post bilateral pigtail catheter placement in the ER. Seen by Dr. Bennett both tubes clamped, 72 hours ago, no shortness of breath or hypoxia ,chest x-ray 03/17 showed tiny right-sided pleural effusion,and complete resolution of left pleural effusion, Case discussed with Dr. Bennett today he recommended to discuss with IR regarding right-sided PleurX catheter placement case discussed with Dr. Bolanos he recommended repeat chest x-ray PA and lateral view Patient will get chest x-ray done this evening will discuss with Dr. Bolanos at am regarding PleurX catheter placement at am. Recurrent Malignant ascites previous admission drained 5.2 L bloody fluid with cytology showing metastatic adenocarcinoma.? Underwent Repeat paracentesis 03/15, 4.4 L of light red/yellow cloudy fluid was removed, patient tolerated procedure well, no abdominal pain or worsening distension noted. High-grade serous Ovarian cancer Status post peritoneal biopsy , CA 125 12,000 unit per mL Seen by Dr. Moran she recommend outpatient warehouseman Oncology at [facility] has an appointment with Dr. Nelson 03/21 on MSIR 15mg and iv morphine 4 mg q.4 hours as needed. Constipation resolved, continue MiraLax and stool softeners Mood disorder psych was consulted during previous admission and patient declined medications for anxiety/depression/PTSD Continue trazodone 50 mg started during previous admission , patient at times refused to take trazodone and take it later at night, recommend to take trazodone that will help her to sleep, also on melatonin as needed DVT prophylaxis Lovenox subQ full code Continue hospitalization for treatment of? bilateral pigtail catheter, abdominal and generalized pain requiring IV morphine Time Spent With Patient Time: Total time managing care of this patient today ____ minutes. Quality Stroke Does the patient have a stroke diagnosis?: No VTE Prior VTE?: No VTE Risk Level:: Medical - moderate - high VTE Device Contraindication: N/A - Device Ordered VTE Drug Contraindication: Treatment Not Indicated
[2022-03-18 23:15] VITALS: BP 108/66; PULSE 99; RESP 18; TEMP 37; O2SAT 97
[2022-03-18] MEDS: ondansetron HCL 4 MG/2 ML VIAL IVPUSH (23:33)
[2022-03-19] MEDS: Morphine Sulfate Immed Release 15 MG TABLET PO (00:51)
[2022-03-19] MEDS: Melatonin 3 MG TABLET 6 MG PO (02:10)
[2022-03-19 03:31] VITALS: BP 114/72; PULSE 91; RESP 19; TEMP 37.2; O2SAT 94
[2022-03-19] MEDS: Morphine Sulfate 2 MG/ML CARTRIDGE 4 MG IVPUSH (03:52)
--- NOTE | 2022-03-19 07:13 | PC.NURSE ---
Pt became more anxious and paranoid overnight - asked RN if she was receiving placebos instead of real medication because she is having no relief from pain or insomnia. Pt educated on medications she was administered. She later had an episode of emesis, which caused her to question if someone in the kitchen was putting something in her food because they do not like her. I explained to her that this would not happen, and it is likely her condition that is making her nauseous and causing her to vomit. Pt very anxious about her prognosis and plan of care. Discussed the plan of care with her and pt was able to rest for the remainder of the night. Will continue with plan of care.
[2022-03-19 08:00] VITALS: BP 99/57; PULSE 92; RESP 20; TEMP 36.3; O2SAT 97
[2022-03-19 08:43] LABS: Blood Urea Nitrogen 13 mg/dL (9-16); Calcium 8.6 mg/dL (8.4-10.2); Creatinine Clr Calc Pharmacy 86.4; Estimated Glomerular Filt Rate > 60; Glucose Random 83 mg/dL (60-115)
[2022-03-19 08:59] LABS: Anion Gap 17 (12-20); Carbon Dioxide 25 mmol/L (22-29); Chloride 98 mmol/L (96-108); Potassium 6.4 mmol/L (3.3-5.1); Sodium 134 mmol/L (135-145)
[2022-03-19] MEDS: Enoxaparin Sodium 40 MG/0.4 ML SYRINGE SUBCUT (10:33)
[2022-03-19] MEDS: 0.9 % Sodium Chloride Flush 3 ML SYRINGE IVFLUSH ×2 (10:34→17:28)
[2022-03-19 10:51] VITALS: BP 104/59; PULSE 97; RESP 20; TEMP 36.7; O2SAT 95
[2022-03-19 12:24] LABS: Lactate Dehydrogenase 399 U/L (122-220); Uric Acid 5.8 mg/dL (2.4-5.7)
[2022-03-19] MEDS: Sodium Zirconium Cyclosilicate 5 GM POWD.PACK 15 GM PO (12:25)
--- NOTE | 2022-03-19 12:45 | P.PNIM_ITS ---
Subjective Subjective Date of Service: 03/19/22 Interval History: Follow up malignant effusions Remains very nervous and anxious sitting up in bed perseverating over several different things Review of Systems Review of Systems: Yes all other systems are reviewed and are negative Physical Exam Vital Signs: Vital Signs: Last Vital Signs Temp 98.0 F 03/19/22 10:51 Pulse 97 03/19/22 10:51 Resp 20 03/19/22 10:51 BP 104/59 L 03/19/22 10:51 Pulse Ox 95 03/19/22 10:51 O2 Del Method 03/19/22 10:51 O2 Flow Rate 2 03/16/22 16:00 BMI result Body Mass Index 23.8 Appearing in no acute distress lung sounds are clear to auscultation heart regular rate rhythm, clear S1, S2 positive bowel sounds, abdomen is soft, nontender neuro patient is alert x3, no focal deficits Objective Data Active Medications Acetaminophen (Acetaminophen 325 Mg Tablet) 650 mg PO Q6H PRN PRN Reason: Pain, Mild (Pain Scale 1-3) Docusate Sodium (Docusate Sodium 100 Mg Capsule) 200 mg PO BEDTIME [facility] Last Admin: 03/18/22 23:36 Dose: Not Given Documented By: DORI Non-Admin Reason: Patient Refused Enoxaparin Sodium (Enoxaparin Sodium 40 Mg/0.4 Ml Syringe) 40 mg SUBCUT Q24H [facility] Last Admin: 03/19/22 10:33 Dose: 40 mg Documented By: MATILDE Melatonin (Melatonin 3 Mg Tablet) 6 mg PO BEDTIME PRN PRN Reason: Insomnia Last Admin: 03/19/22 02:10 Dose: 6 mg Documented By: DORI Morphine Sulfate (Morphine Sulfate 2 Mg/Ml Cartridge) 4 mg IVPUSH Q4H PRN; Prot ocol PRN Reason: Pain, Severe (Pain Scale 7-10) Last Admin: 03/19/22 03:52 Dose: 4 mg Documented By: DORI Morphine Sulfate (Morphine Sulfate Immed Release 15 Mg Tablet) 15 mg PO Q6H PRN PRN Reason: Pain, Moderate (Pain Scale 4-6 Last Admin: 03/19/22 00:51 Dose: 15 mg Documented By: DORI Ondansetron HCl (Ondansetron Hcl 4 Mg/2 Ml Vial) 4 mg IVPUSH Q8H PRN PRN Reason: Nausea and Vomiting Last Admin: 03/18/22 23:33 Dose: 4 mg Documented By: DORI Polyethylene Glycol (Polyethylene Glycol 3350 17 Gm Powd.Pack) 17 gm PO DAILY [facility] Last Admin: 03/19/22 10:37 Dose: Not Given Documented By: MATILDE Non-Admin Reason: Patient Refused Sodium Chloride (0.9 % Sodium Chloride Flush 3 Ml Syringe) 3 ml IVFLUSH QSHIFT [facility] Last Admin: 03/19/22 10:34 Dose: 3 ml Documented By: MATILDE Sodium Zirconium Cyclosilicate (Sodium Zirconium Cyclosilicate 5 Gm Powd.Pack) 15 gm PO DAILY [facility] Last Admin: 03/19/22 12:25 Dose: 15 gm Documented By: MATILDE Trazodone HCl (Trazodone Hcl 50 Mg Tablet) 50 mg PO BEDTIME [facility] Last Admin: 03/19/22 04:20 Dose: Not Given Documented By: DORI Non-Admin Reason: Patient Refused Labs 03/15/22 06:25 03/19/22 08:00 Labs: Laboratory Results - last 24 hr 03/19/22 08:00 Anion Gap 17 Estim Creat Clear Calc 86.4 Estimated GFR > 60 Random Glucose 83 Uric Acid 5.8 H Calcium 8.6 Lactate Dehydrogenase 399 H Microbiology Microbiology Results: Microbiology 03/13/22 17:08 Blood Culture - Final Blood - Venous No growth after 5 days. 03/13/22 17:08 Blood Culture - Final Blood - Venous No growth after 5 days. Assessment and Plan (1) Ovarian ca: Status: Acute Assessment and Plan: Had a discussion with Dr. Moran, may need to have apt re-scheduled due to pig tail cath trial. If she puts out less than 200ml in 24hrs, they can be pulled, if she puts out more than 200ml, place pleurx cath. This process may take more than 24 hours and her apt is scheduled for 03/21/21. Plan to have apt rescheduled. Also there may be some issue with chemotherapy in SNF due to billing? spoke with patient's significant other, Candace, he stated that he is not sure if he can care for her at home to the extent that she needs. He was under the impression that he was going to ?share a home, not take care of her?. He is not sure he is able to at this point as he has his own healthcare needs. Will discuss with Case Management further. (2) Hypoxia: Status: Acute (3) Anxiety: Status: Acute (4) Abdominal ascites: Status: Acute (5) Ascites, malignant: Status: Acute (6) Pleural effusion: Status: Acute (7) Ovarian mass: Status: Acute Plan 56-year-old female with pertinent history of ovarian mass with malignant ascites and malignant pleural effusion, mood disorder presents to the emergency department for shortness of breath and worsening abdominal distension. Acute hypoxemic respiratory failure secondary to bilateral malignant pleural effusion. Resolved status post bilateral pigtail catheter placement in the ER. Pigtail catheters had been clamped, repeat chest x-ray on 03/17/2022 showed small right-sided pleural effusion Plan to unclamp catheters, if less than 200 mL in 24 hours can remove if greater than [address] PleurX catheter Recurrent Malignant ascites previous admission drained 5.2 L bloody fluid with cytology showing metastatic adenocarcinoma.? Underwent Repeat paracentesis 03/15, 4.4 L of light red/yellow cloudy fluid was removed no abdominal pain or worsening distension noted. High-grade serous Ovarian cancer Status post peritoneal biopsy , CA 125 12,000 unit per mL Seen by Dr. Moran rec outpatient bro[facility] stit[facility] Oncology at [facility], appointment with Dr. Nelson 03/21 that will need to be rescheduled, Dr. Moran is aware on MSIR 15mg and IV morphine 4 mg q.4 hours as needed. Constipation resolved continue MiraLax and stool softeners Mood disorder psych was consulted during previous admission and patient declined medications for anxiety/depression/PTSD Continue trazodone 50 mg started during previous admission , patient at times refused to take trazodone and take it later at night, recommend to take trazodone that will help her to sleep, also on melatonin as needed will re-consult psych for mental health support DVT prophylaxis Lovenox subQ Attending Dr. Cunningham full code Continue hospitalization for treatment of? bilateral pigtail catheter, abdominal and generalized pain requiring IV morphine Time Spent With Patient Time: Total time managing care of this patient today ____ minutes. Quality Stroke Does the patient have a stroke diagnosis?: No VTE Prior VTE?: No VTE Risk Level:: Medical - moderate - high VTE Device Contraindication: N/A - Device Ordered VTE Drug Contraindication: Treatment Not Indicated
--- NOTE | 2022-03-19 14:40 | MHC.CM.PN ---
PT is recommending STR; CM will follow.
[2022-03-19 15:38] LABS: Potassium 4.9 mmol/L (3.3-5.1)
[2022-03-19 15:41] VITALS: BP 115/58; PULSE 98; RESP 17; TEMP 36.4; O2SAT 95
--- NOTE | 2022-03-19 16:20 | PM.DS ---
DS: Providers Provider Date of Service: 03/20/22 Date of admission: 03/13/22 23:57 Primary care physician: Ramon Seth MD Consults: 03/14/22 00:33 Consult to Pulmonology Routine Consulting Provider: Sudhir Bennett Reason for consultation: bilateral pleural effusion 03/14/22 09:17 Consult to Hematology / Oncology Routine Consulting Provider: Tiffany Moran Reason for consultation: Repeat effusions Has provider been notified: No 03/19/22 13:31 Consult to Psychiatry Routine Consulting Provider: Psych Covering Reason for consultation: follow up for severe anxiety Has provider been notified: No 03/19/22 13:36 Consult to Nephrology Routine Consulting Provider: Carlos Hager Reason for consultation: hyperkalemia Has provider been notified: No Attending physician on discharge: Kei Cunningham Discharging clinician: Sara Bennett DS: Diagnosis Discharge Diagnosis (1) Ovarian ca: Status: Acute (2) Hypoxia: Status: Acute (3) Abdominal ascites: Status: Acute (4) Ascites, malignant: Status: Acute (5) Pleural effusion: Status: Acute (6) Ovarian mass: Status: Acute DS: Summary Hospital Course Hospital Course: HP as per admitting provider This is a 56-year-old female with pertinent history of ovarian mass with malignant ascites and malignant pleural effusion, mood disorder presents to the emergency department for shortness of breath and worsening abdominal distension.? Patient states she gets dyspneic with minimal ambulation.? Patient was recently admitted and discharged on 03/12 after she was diagnosed with ovarian mass with malignant ascites and malignant pleural effusions.? Patient underwent paracentesis and thoracentesis during previous admission.? Patient without shortness of breath and was maintaining normal oxygen saturation on room air prior to discharge.? Was supposed to follow-up with PCP.? Patient was discharged with VNA services but states they never showed up. In the emergency department, patient was found to be hypoxemic and bilateral chest tubes were placed for bilateral pleural effusions . Acute hypoxemic respiratory failure secondary to bilateral malignant pleural effusion. Resolved status post bilateral pigtail catheter placement in the ER. Pigtail catheters had been clamped, repeat chest x-ray on 03/17/2022 showed small right-sided pleural effusion Plan for pleurx catheter placement however no provider able to place, therefore will send to [facility] with pig tail cath with plan to place pleurx if warranted Recurrent Malignant ascites previous admission drained 5.2 L bloody fluid with cytology showing metastatic adenocarcinoma.? Underwent Repeat paracentesis 03/15, 4.4 L of light red/yellow cloudy fluid was removed no abdominal pain or worsening distension noted. High-grade serous Ovarian cancer Status post peritoneal biopsy , CA 125 12,000 unit per mL on MSIR 15mg and IV morphine 4 mg q.4 hours as needed. Discussed case with Dr. Moran, plan for tx to [facility] for inpatient chemotherapy. Discussed with Dr. Cindy Lyle, oncology and hospitalist nurse practitioner. Plan for tx to hospitalist service for inpatient chemotherapy Constipation resolved continue MiraLax and stool softeners Mental health. PTSD, OCD psych was consulted during previous admission and patient declined medications for anxiety/depression/PTSD Continue trazodone 50 mg started during previous admission , patient at times refused to take trazodone and take it later at night, recommend to take trazodone that will help her to sleep, also on melatonin as needed wound benefit from psych re-consultation Patient transferred overnight at 04:30 to [facility] Time Spent with Patient Time attestation: Total time managing care of this patient today ____ minutes. Discharge coordination time: Greater than 30 minutes Quality: Safe Use of Opioids Does Pt have an Active Cancer Diagnosis on the Problem List?: No Quality: Stroke Does the patient have a stroke diagnosis?: No Physical Exam Vital Signs: Vital Signs: Last Vital Signs Temp 97.5 F 03/19/22 15:41 Pulse 98 03/19/22 15:41 Resp 17 03/19/22 15:41 BP 115/58 L 03/19/22 15:41 Pulse Ox 95 03/19/22 15:41 O2 Del Method 03/19/22 15:41 O2 Flow Rate 2 03/16/22 16:00 BMI result Body Mass Index 23.8 DS: Data Data Completed and Pending Completed studies during hospitalization [Text1]: Procedures Drainage of Peritoneal Cavity, Percutaneous Approach, Diagnostic (03/05/22) Drainage of Right Pleural Cavity, Percutaneous Approach (03/05/22) Excision of Omentum, Percutaneous Approach, Diagnostic (03/05/22) Labs on day of discharge: Laboratory Results - last 24 hr 03/19/22 03/19/22 08:00 14:56 Sodium 134 L Potassium 6.4 H* 4.9 D Chloride 98 Carbon Dioxide 25 Anion Gap 17 BUN 13 Creatinine 0.62 Estim Creat Clear Calc 86.4 Estimated GFR > 60 Random Glucose 83 Uric Acid 5.8 H Calcium 8.6 Lactate Dehydrogenase 399 H Discharge Plan Discharge Anticipated Discharge Date/Time: 03/20/22 04:00 Patient Disposition: Xfer Acute Care Hospital Discharge Diagnosis: Ovarian Cancer with malignant ascites Referrals: Ramon Seth MD [Primary Care Provider] - 1 Week Discharge Medications: Continued melatonin 3 mg Tablet 6 mg PO BEDTIME PRN (Reason: insomnia) Qty: 28 0RF trazodone 50 mg tablet 50 mg PO BEDTIME Qty: 30 0RF oxycodone 5 mg tablet 5 mg PO Q4H PRN (Reason: pain) Qty: 18 0RF Rx Instructions: Partial Fill upon patient request. Discharge Orders: Discharge Order (Routine); Ordered 03/19/22 Ordered By: Sara Bennett Diet: Advance to usual diet Activity on Discharge: As tolerated Stand Alone Forms: Patient Portal Discharge page Care Plan Goals: Treatment for ovarian carcinoma Health Concerns: Ovarian carcinoma with malignant effusions Plan of Treatment: Patient transferred to [facility] overnight at 04:30 for inpatient chemotherapy and further management of carcinoma Assessment: See discharge summary Discharge Date/Time: 03/19/22 21:30
[2022-03-19 19:42] VITALS: BP 106/65; PULSE 98; RESP 17; TEMP 36.6; O2SAT 92
== END 2022-03-19 21:30 | disposition short-term general hospital (02) | DRG 754 ==
LOC: HO.ED 03-14 01:31 → HO.EDOVER 03-14 02:07 → HO.IMC 03-14 06:23
PROVIDERS: Hospitalist; Internal Medicine; Physician Assistant; Radiology Diagnostic Radiology; Admitting Provider Student in an Organized Health Care Education/Training Program; Emergency Provider Internal Medicine; PCP Internal Medicine; Visit Provider Nurse Practitioner Acute Care
DX: C56.3 Malignant neoplasm of bilateral ovaries (principal); J96.01 Acute respiratory failure with hypoxia; C78.6 Secondary malignant neoplasm of retroperitoneum and peritoneum; R18.0 Malignant ascites; J91.0 Malignant pleural effusion; E44.0 Moderate protein-calorie malnutrition; F43.10 Post-traumatic stress disorder, unspecified; G89.3 Neoplasm related pain (acute) (chronic); E87.5 Hyperkalemia; K59.00 Constipation, unspecified; F42.9 Obsessive-compulsive disorder, unspecified; Z68.25 Body mass index [BMI] 25.0-25.9, adult; F41.9 Anxiety disorder, unspecified; Z20.822 Contact with and (suspected) exposure to COVID-19; Z88.0 Allergy status to penicillin; Z88.6 Allergy status to analgesic agent; Z79.899 Other long term (current) drug therapy
CPT/HCPCS: 0241U; 36415; 49083; 71045; 71046; 71275; 74177; 80048; 80076; 81003; 82436; 83605; 83615; 83690; 83735; 83880; 84132; 84133; 84300; 84484; 84550; 85014; 85018; 85025; 85027; 85379; 85610; 86850; 86900; 86901; 87040; 89051; 93005; 97163; 99285; J1650; J2060; J2270; J2405; J3010; Q9967

== ENCOUNTER 2022-12-26 13:39 | Outpatient (REF) | payer OTHER, SELFPAY ==
[2022-12-26 13:59] LABS: MANUAL DIFF FLAG NO
[2022-12-26 14:08] LABS: Basophils Percent Auto 0.3 % (0-2); Eosinophils Absolute Auto 0.1 X10*3/uL (0.0-0.4); Eosinophils Percent Auto 1.6 % (0-4); Hematocrit 39.6 % (37.0-47.0); Hemoglobin 13.4 g/dl (12.0-16.0); Imm Gran Abs Auto 0.01 X10*3/uL (0.00-0.03); Imm Gran Pct Auto 0.3 % (0.0-0.4); Lymphocytes Absolute Auto 1.1 X10*3/uL (1.2-4.9); Lymphocytes Percent Auto 27.9 % (20-40); Mean Corpuscular HGB Conc 33.8 g/dl (31.0-35.0); Mean Corpuscular Hemoglobin 30.6 pg (27.0-33.0); Mean Corpuscular Volume 90.4 fL (80.0-98.0); Mean Platelet Volume 8.9 fL (9.4-12.3); Monocytes Absolute Auto 0.2 X10*3/uL (0.1-1.2); Monocytes Percent Auto 5.7 % (2-11); Neutrophils Absolute Auto 2.5 x10*3/uL (2.0-8.3); Neutrophils Percent Auto 64.2 % (45-73); Platelet Count 170 X10*3/uL (160-400); Red Blood Count 4.38 X10*6/uL (4.20-5.50); Red Cell Distribution Width 13.4 % (11.0-16.0); White Blood Count 3.9 X10*3/uL (4.8-10.8)
[2022-12-26 14:31] LABS: Estimated Average Glucose 100 mg/dL; Hemoglobin A1C 96.6291 umol/L; Hemoglobin A1c % 5.1 % (<6.0)
[2022-12-26 15:19] LABS: Alanine Aminotransferase 14 U/L (0-31); Albumin Level 4.2 g/dL (3.5-5.0); Alkaline Phosphatase 77 U/L (39-117); Anion Gap 13 (12-20); Aspartate Amino Transferase 18 U/L (5-31); Bilirubin Total 0.5 mg/dL (0.0-1.0); Blood Urea Nitrogen 14 mg/dL (9-16); Calcium 10.4 mg/dL (8.4-10.2); Carbon Dioxide 30 mmol/L (22-29); Chloride 104 mmol/L (96-108); Estimated Glomerular Filt Rate > 60; Glucose Random 87 mg/dL (60-115); Potassium 4.6 mmol/L (3.3-5.1); Sodium 142 mmol/L (135-145); Total Protein 7.5 g/dL (6.5-8.0)
[2022-12-26 15:22] LABS: Folate 11.9 ng/mL (> or = 4.0); Vitamin B12 417 pg/mL (200-900)
[2022-12-31 11:38] LABS: Methylmalonic Acid 159 nmol/L (87-318)
== END 2022-12-26 13:40 | disposition home or self-care (01) ==
LOC: HO.LAB 13:39
PROVIDERS: PCP Internal Medicine; Visit Provider Internal Medicine
DX: M79.671 Pain in right foot (principal); M79.672 Pain in left foot; I73.9 Peripheral vascular disease, unspecified; G62.9 Polyneuropathy, unspecified
CPT/HCPCS: 36415; 80053; 82607; 82746; 83036; 83921; 85025

== ENCOUNTER 2023-06-19 11:22 | Outpatient (REF) | payer OTHER, SELFPAY ==
[2023-06-19 11:51] LABS: MANUAL DIFF FLAG NO
[2023-06-19 12:37] LABS: Basophils Percent Auto 0.3 % (0-2); Eosinophils Absolute Auto 0.1 X10*3/uL (0.0-0.4); Eosinophils Percent Auto 1.3 % (0-4); Hemoglobin 13.9 g/dl (12.0-16.0); Imm Gran Abs Auto 0.02 X10*3/uL (0.00-0.03); Imm Gran Pct Auto 0.5 % (0.0-0.4); Lymphocytes Absolute Auto 0.7 X10*3/uL (1.2-4.9); Lymphocytes Percent Auto 18.6 % (20-40); Mean Corpuscular HGB Conc 34.8 g/dl (31.0-35.0); Mean Corpuscular Hemoglobin 34.4 pg (27.0-33.0); Mean Platelet Volume 9.5 fL (9.4-12.3); Monocytes Absolute Auto 0.3 X10*3/uL (0.1-1.2); Monocytes Percent Auto 6.4 % (2-11); Neutrophils Absolute Auto 2.9 x10*3/uL (2.0-8.3); Neutrophils Percent Auto 72.9 % (45-73); Platelet Count 149 X10*3/uL (160-400); Red Blood Count 4.04 X10*6/uL (4.20-5.50); White Blood Count 3.9 X10*3/uL (4.8-10.8)
[2023-06-19 13:04] LABS: Estimated Average Glucose 94 mg/dL; Hemoglobin A1c % 4.9 % (<6.0)
[2023-06-19 13:17] LABS: Alanine Aminotransferase 8 U/L (0-31); Albumin Level 4.4 g/dL (3.5-5.0); Alkaline Phosphatase 62 U/L (39-117); Anion Gap 11 (12-20); Aspartate Amino Transferase 13 U/L (5-31); Bilirubin Total 0.4 mg/dL (0.0-1.0); Blood Urea Nitrogen 11 mg/dL (9-16); Calcium 10.1 mg/dL (8.4-10.2); Carbon Dioxide 31 mmol/L (22-29); Chloride 104 mmol/L (96-108); Cholesterol 270 mg/dL (<200); Estimated Glomerular Filt Rate > 60; Glucose Random 104 mg/dL (60-115); HDL Cholesterol 75 mg/dL (>40); LDL Cholesterol Calculated 169 mg/dL (<100); Magnesium 1.9 mg/dL (1.6-2.6); Phosphorus 3.4 mg/dL (2.7-4.5); Potassium 4.6 mmol/L (3.3-5.1); Sodium 141 mmol/L (135-145); Total Protein 7.3 g/dL (6.5-8.0); Triglycerides 134 mg/dL (<150)
[2023-06-19 13:26] LABS: Thyroid Stimulating Hormone 3.34 uIU/mL (0.32-4.0)
[2023-06-20 08:23] LABS: CA-125 6 U/mL (<35)
== END 2023-06-19 11:23 | disposition home or self-care (01) ==
LOC: HO.LAB 11:22
PROVIDERS: Absent Provider Obstetrics & Gynecology Gynecologic Oncology; Visit Provider Internal Medicine
DX: I73.9 Peripheral vascular disease, unspecified (principal); C56.9 Malignant neoplasm of unspecified ovary; C54.1 Malignant neoplasm of endometrium; R73.01 Impaired fasting glucose
CPT/HCPCS: 36415; 80053; 80061; 83036; 83735; 84100; 84443; 85025; 86304